=== PATIENT | female | born 1945 ===

== ENCOUNTER 2020-07-25 17:40 | Emergency (ER) | payer MEDICARE, SELFPAY ==
[2020-07-25 17:53] VITALS: BP 141/64; PULSE 98; RESP 16; TEMP 38.1; O2SAT 97; BMI 24.4
--- NOTE | 2020-07-25 17:58 | ED_ITS ---
HPI - Fever General Chief Complaint: Weakness Stated Complaint: dizzy Source: patient Mode of arrival: ambulatory Limitations: no limitations History of Present Illness HPI Narrative: 75-year-old female with past medical history of diabetes type 2, hypertension, hyperlipidemia, presents with 3 weeks upper respiratory symptoms, fatigue and cough consistent with COVID-19. MD elicited complaint: fever, malaise and weakness Pertinent past history: diabetes Onset (ago): week(s) (3) Relieving factors: nothing Associated symptoms: chills, headache, nasal congestion and cough Treatments prior to arrival fever: cold medicine Related Data Previous Rx's Medication Instructions Recorded atorvastatin 80 mg tablet 80 mg PO DAILY 90 Days #90 tab 05/13/20 ezetimibe 10 mg tablet 10 mg PO DAILY 90 Days #90 tab 05/13/20 hydrochlorothiazide 12.5 mg tablet 12.5 mg PO DAILY 90 Days #90 tab 05/13/20 metformin 1,000 mg tablet 1,000 mg PO BID 90 Days #180 tab 05/13/20 multivitamin 1 tab PO DAILY 30 Days #30 tab 05/13/20 pentosan polysulfate sodium 100 mg 100 mg PO TID 30 Days #90 cap 05/13/20 capsule risperidone 0.5 mg tablet 0.5 mg PO DAILY 90 Days #90 tab 05/13/20 pioglitazone 45 mg tablet 45 mg PO DAILY 90 Days #90 tab 05/28/20 tolterodine 2 mg tablet 2 mg PO BID #56 tab 05/28/20 Carafate 100 mg/mL oral suspension 10 ml PO BID 30 Days #600 ml NS 06/07/20 azithromycin [Zithromax TRI-KEYLA] See Rx Instructions .ROUTE 07/25/20 .COMPLEX #6 tab benzonatate [Tessalon Perles] 100 mg PO TID PRN #20 cap 07/25/20 dexamethasone 6 mg PO DAILY 10 Days #10 tab 07/25/20 Allergies Allergy/AdvReac Type Severity Reaction Status Date / Time Iodinated Contrast Media Allergy Unknown ITCHY Unverified 04/16/20 15:28 [IV CONTRAST] lactose [LACTOSE] Allergy Unknown EYES Unverified 04/16/20 15:28 SWELLING oxycodone [Percocet] Allergy Unknown anaphylaxis Verified 05/20/20 15:10 tramadol Allergy Unknown pruritus, Verified 05/20/20 15:10 nausea dulaglutide [Trulicity] AdvReac Unknown vomiting Verified 05/20/20 15:10 oxybutynin AdvReac Unknown dizziness Verified 05/20/20 15:10 contrast dye Allergy Unknown unknown Uncoded 05/20/20 15:10 latex Allergy Unknown Unknown Uncoded 05/20/20 15:10 Review of Systems Review of Systems: Constitutional: positive Fever, positive Chills, positive fatigue, positive Malaise ENT/Mouth: No throat, positive runny nose Eyes: No Discharge Cardiovascular: No Chest Pain, No SOB Respiratory: No Cough, No Sputum, No Wheezing, No Smoke Exposure, No Dyspnea Gastrointestinal: No Nausea, No Vomiting, No Diarrhea Genitourinary: no irregular bleeding, No Dysuria, No Urinary Frequency, No Hematuria, No Urinary Incontinence, No Urgency, No Flank Pain, Musculoskeletal: positive Myalgia Skin: No rash Neuro: No Headache PMFSH Past Medical History Attestation statement: The following information was validated with the patient. Source: old records reviewed Medical History Diabetes mellitus Essential hypertension Pure hypercholesterolemia Surgical History History of bladder surgery History of surgery History of tubal ligation S/P [id number] (total abdominal hysterectomy and bilateral salpingo-oophorectomy) Family History Family History Father Medical history unknown Mother Medical history unknown Family/Other Diabetes Hypertension Social History Social History Alcohol intake: unknown Smoked in Last 30 Days: No Use of substances other than those prescribed or required for medical reasons: No Advance Directives: No Advance Directives Information Provided: No Physical Exam Vital Signs: Vital Signs: Last Vital Signs Temp 99.0 F 07/25/20 21:31 Pulse 68 07/25/20 21:31 Resp 13 07/25/20 21:31 BP 135/77 07/25/20 21:31 Pulse Ox 97 07/25/20 21:31 Body Mass Index 24.4 Appearance: Alert. Oriented X3. Mild distress. Eyes: Pupils equal, round and reactive to light. ENT: Pharynx normal. Neck: Normal inspection. Neck supple. CVS: Normal heart rate and rhythm. Pulses normal. Respiratory: No respiratory distress. Breath sounds normal. Abdomen: Soft and nontender. Skin: Skin warm and dry. Normal skin color. Normal skin turgor. Extremities: No lower extremity edema. Neuro: No motor deficit. No sensory deficit. Course Course Course Narrative: 75-year-old female with past medical history of hypertension, type 2 diabetes, presents with 3 weeks of fatigue, and upper respiratory symptoms. Plan of care is for x-ray, test for COVID-19. While patient is febrile and mildly tachycardic we will hold off on fluids as this is highly suspicious for a viral illness. X-ray shows right lung pneumonia, will treat with ceftriaxone and azithromycin as COVID-19 test is pending. COVID-19 is positive, we will treat with dexamethasone, and give prescriptions for azithromycin and Tessalon Perles. Patient verbalized understanding of and agrees plan of care discharge home. Reevaluation(s) Reevaluation #1: Medications ordered at 7:34 p.m. have not yet been administered. Urinalysis also pending. RN updated. Time: 20:49 MDM - Fever Differential Diagnosis Differential diagnosis: Likely fever of unknown origin, community acquired pneumonia, pyelonephritis, viral infection, sepsis and influenza Medical Records Attestation: I reviewed the patient's medical records. Lab Data Attestation: I reviewed the patient's lab results. Result diagrams: 07/25/20 18:22 07/25/20 18:22 Labs: Lab Results 07/25/20 07/25/20 07/25/20 Range/Units 18:22 18:22 18:22 WBC 3.4 L (4.8-10.8) X10*3/uL RBC 4.14 L (4.20-5.50) X10*6/uL Hgb 12.4 (12.0-16.0) g/dl Hct 37.4 (37-47) % MCV 90.3 (80-98) fL MCH 30.0 (27.0-33.0) pg MCHC 33.2 (31.0-35.0) g/dl RDW 13.2 (11.0-16.0) % Plt Count TNP MPV 11.4 (9.4-12.3) fL Immature Gran % (Auto) 0.0 (0.0-0.4) % Neut % (Auto) 59.0 (45-73) % Lymph % (Auto) 32.6 (20-40) % Kaufman % (Auto) 7.8 (2-11) % Eos % (Auto) 0.3 (0-4) % Baso % (Auto) 0.3 (0-2) % Lymph # (Auto) 1.1 L (1.2-4.9) X10*3/uL Kaufman # (Auto) 0.3 (0.1-1.2) X10*3/uL Eos # (Auto) 0.0 (0.0-0.4) X10*3/uL Baso # (Auto) 0.0 (0.0-0.2) X10*3/uL Abs Immat Gran (auto) 0.00 (0.00-0.03) X10*3/uL Absolute Neuts (auto) 2.0 (2.0-8.3) X10*3/uL Absolute Nucleated RBC 0.000 (0.0-0.012) X10*3/uL Nucleated RBC % (auto) 0.0 (0.0-0.2) /100WBC Smear Tech's Comments VERIFIED PT 13.7 H (10.8-13.0) SEC INR 1.2 H (0.9-1.1) APTT 25.5 (24.1-38.0) SEC Sodium 138 (135-145) mmol/L Potassium 4.2 (3.3-5.1) mmol/l Chloride 102 (96-108) mmol/L Carbon Dioxide 24 (22-29) mmol/L Anion Gap 16 (12-20) BUN 13 (9-16) mg/dL Creatinine 0.68 (0.5-1.4) mg/dL Estim Creat Clear Calc 59.1 Estimated GFR > 60 Random Glucose 164 H (60-115) mg/dL Lactic Acid (0.5-2.0) mmol/L Calcium 8.3 L (8.4-10.2) mg/dL Magnesium (1.6-2.6) mg/dL Total Bilirubin 0.3 (0.0-1.0) mg/dL Direct Bilirubin < 0.2 (0.0-0.5) mg/dL AST 29 (5-31) U/L ALT 8 (0-31) U/L Alkaline Phosphatase 59 (39-117) U/L Troponin I High Sens (<3.5-17.0) ng/L Total Protein 6.4 L (6.5-8.0) g/dL Albumin 3.7 (3.5-5.0) g/dL Lipase 32 (8-78) U/L Coronavirus (PCR) (Negative) Influenza Type A (PCR) (Negative) Influenza Type B (PCR) (Negative) RSV RNA Qual (PCR) (Negative) 07/25/20 07/25/20 07/25/20 Range/Units 18:22 18:22 18:22 WBC (4.8-10.8) X10*3/uL RBC (4.20-5.50) X10*6/uL Hgb (12.0-16.0) g/dl Hct (37-47) % MCV (80-98) fL MCH (27.0-33.0) pg MCHC (31.0-35.0) g/dl RDW (11.0-16.0) % Plt Count MPV (9.4-12.3) fL Immature Gran % (Auto) (0.0-0.4) % Neut % (Auto) (45-73) % Lymph % (Auto) (20-40) % Kaufman % (Auto) (2-11) % Eos % (Auto) (0-4) % Baso % (Auto) (0-2) % Lymph # (Auto) (1.2-4.9) X10*3/uL Kaufman # (Auto) (0.1-1.2) X10*3/uL Eos # (Auto) (0.0-0.4) X10*3/uL Baso # (Auto) (0.0-0.2) X10*3/uL Abs Immat Gran (auto) (0.00-0.03) X10*3/uL Absolute Neuts (auto) (2.0-8.3) X10*3/uL Absolute Nucleated RBC (0.0-0.012) X10*3/uL Nucleated RBC % (auto) (0.0-0.2) /100WBC Smear Tech's Comments PT (10.8-13.0) SEC INR (0.9-1.1) APTT (24.1-38.0) SEC Sodium (135-145) mmol/L Potassium (3.3-5.1) mmol/l Chloride (96-108) mmol/L Carbon Dioxide (22-29) mmol/L Anion Gap (12-20) BUN (9-16) mg/dL Creatinine (0.5-1.4) mg/dL Estim Creat Clear Calc Estimated GFR Random Glucose (60-115) mg/dL Lactic Acid 1.1 (0.5-2.0) mmol/L Calcium (8.4-10.2) mg/dL Magnesium 1.6 (1.6-2.6) mg/dL Total Bilirubin (0.0-1.0) mg/dL Direct Bilirubin (0.0-0.5) mg/dL AST (5-31) U/L ALT (0-31) U/L Alkaline Phosphatase (39-117) U/L Troponin I High Sens < 3.5 (<3.5-17.0) ng/L Total Protein (6.5-8.0) g/dL Albumin (3.5-5.0) g/dL Lipase (8-78) U/L Coronavirus (PCR) (Negative) Influenza Type A (PCR) (Negative) Influenza Type B (PCR) (Negative) RSV RNA Qual (PCR) (Negative) 07/25/20 Range/Units 20:14 WBC (4.8-10.8) X10*3/uL RBC (4.20-5.50) X10*6/uL Hgb (12.0-16.0) g/dl Hct (37-47) % MCV (80-98) fL MCH (27.0-33.0) pg MCHC (31.0-35.0) g/dl RDW (11.0-16.0) % Plt Count MPV (9.4-12.3) fL Immature Gran % (Auto) (0.0-0.4) % Neut % (Auto) (45-73) % Lymph % (Auto) (20-40) % Kaufman % (Auto) (2-11) % Eos % (Auto) (0-4) % Baso % (Auto) (0-2) % Lymph # (Auto) (1.2-4.9) X10*3/uL Kaufman # (Auto) (0.1-1.2) X10*3/uL Eos # (Auto) (0.0-0.4) X10*3/uL Baso # (Auto) (0.0-0.2) X10*3/uL Abs Immat Gran (auto) (0.00-0.03) X10*3/uL Absolute Neuts (auto) (2.0-8.3) X10*3/uL Absolute Nucleated RBC (0.0-0.012) X10*3/uL Nucleated RBC % (auto) (0.0-0.2) /100WBC Smear Tech's Comments PT (10.8-13.0) SEC INR (0.9-1.1) APTT (24.1-38.0) SEC Sodium (135-145) mmol/L Potassium (3.3-5.1) mmol/l Chloride (96-108) mmol/L Carbon Dioxide (22-29) mmol/L Anion Gap (12-20) BUN (9-16) mg/dL Creatinine (0.5-1.4) mg/dL Estim Creat Clear Calc Estimated GFR Random Glucose (60-115) mg/dL Lactic Acid (0.5-2.0) mmol/L Calcium (8.4-10.2) mg/dL Magnesium (1.6-2.6) mg/dL Total Bilirubin (0.0-1.0) mg/dL Direct Bilirubin (0.0-0.5) mg/dL AST (5-31) U/L ALT (0-31) U/L Alkaline Phosphatase (39-117) U/L Troponin I High Sens (<3.5-17.0) ng/L Total Protein (6.5-8.0) g/dL Albumin (3.5-5.0) g/dL Lipase (8-78) U/L Coronavirus (PCR) POSITIVE A (Negative) Influenza Type A (PCR) NEGATIVE (Negative) Influenza Type B (PCR) NEGATIVE (Negative) RSV RNA Qual (PCR) NEGATIVE (Negative) Imaging Data Chest x-ray: Attestation: I personally reviewed and interpreted this imaging study as follows: Radiologist's impression: EXAMINATION: XR CHEST CLINICAL INFORMATION: Fever. Weakness. COMPARISON: Chest x-ray 09/24/2019 TECHNIQUE: Frontal view of the chest was obtained. 6:37 PM FINDINGS: Subtle basilar right sided airspace opacity concerning for pneumonia. Left lung is normally aerated. No pleural effusion. There is no pneumothorax. Heart size is normal. The cardiac and mediastinal contours are normal. XR/XR chest 1V IMPRESSION: Subtle right basilar airspace opacity. Discharge Plan Discharge Clinical Impression: COVID-19, Pneumonia due to COVID-19 virus Patient Disposition: Home, Self-Care Instructions: Viral Pneumonia (ED), COVID-19 (Coronavirus Disease 2019) (ED) Additional Instructions: Se le evaluaron para los s?ntomas de las v?as respiratorias superiores. Mlain dado positivo en COVID-19. Por favor, mantenga el aislamiento social seg?n las pautas estatales y federales. Es choi responsabilidad mantener estas pautas. Has estado enfermo yazmin 3 semanas te daremos antibi?steve azitromicina y prednisona para ayudar a abrir los pulmones. Si los s?ntomas empeoran o tiene dificultad para respirar, por favor regrese al departamento de emergencias inmediatamente. Nu por elegir janna departamento de emergencias para la evaluaci?n. Por favor, belle un seguimiento con el m?dico de atenci?n primaria seg?n sea necesari o. Regrese al servicio de urgencias para cualquier s?ntoma nuevo, preocupante o que empeore. You were evaluated for upper respiratory symptoms. You tested positive for COVID-19. Please maintain social isolation per State and Federal guidelines. It is your responsibility to maintain these guidelines. You been sick for 3 weeks we will give you azithromycin antibiotic and prednisone to help open up the lungs. If symptoms get worse or you have difficulty breathing please return to the emergency department immediately. Thank you for choosing this emergency department for evaluation. Please follow-up with primary care physician as needed. Return to the emergency department for any new, concerning, or worsening symptoms. Prescriptions: New dexamethasone 6 mg tablet 6 mg PO DAILY 10 Days Qty: 10 RF: 0 azithromycin [Zithromax TRI-KEYLA] 500 mg tablet See Rx Instructions .ROUTE .COMPLEX Qty: 6 RF: 0 benzonatate [Tessalon Perles] 100 mg capsule 100 mg PO TID PRN (Reason: cough) Qty: 20 RF: 0 No Action atorvastatin 80 mg tablet 80 mg PO DAILY 90 Days Qty: 90 RF: 3 ezetimibe [Zetia] 10 mg tablet 10 mg PO DAILY 90 Days Qty: 90 RF: 3 hydrochlorothiazide 12.5 mg tablet 12.5 mg PO DAILY 90 Days Qty: 90 RF: 3 metformin 1,000 mg tablet 1,000 mg PO BID 90 Days Qty: 180 RF: 3 multivitamin Tablet 1 tab PO DAILY 30 Days Qty: 30 RF: 11 Elmiron 100 mg capsule 100 mg PO TID 30 Days Qty: 90 RF: 11 risperidone [Risperdal] 0.5 mg tablet 0.5 mg PO DAILY 90 Days Qty: 90 RF: 2 tolterodine 2 mg tablet 2 mg PO BID Qty: 56 RF: 11 pioglitazone 45 mg tablet 45 mg PO DAILY 90 Days Qty: 90 RF: 3 sucralfate [Carafate] 100 mg/mL suspension 10 ml PO BID 30 Days Qty: 600 RF: 4 Print Language: Polish
[2020-07-25] MEDS: Acetaminophen 325 MG TABLET 650 MG PO (18:06)
[2020-07-25 18:33] LABS: Basophils Percent Auto 0.3 % (0-2); Eosinophils Percent Auto 0.3 % (0-4); MANUAL DIFF FLAG SCAN; Monocytes Absolute Auto 0.3 X10*3/uL (0.1-1.2); Monocytes Percent Auto 7.8 % (2-11); PLT CLUMP 1; Red Cell Distribution Width 13.2 % (11.0-16.0); SCAN SMEAR FLAG 1
[2020-07-25 18:35] LABS: Hematocrit 37.4 % (37-47); Hemoglobin 12.4 g/dl (12.0-16.0); Lymphocytes Absolute Auto 1.1 X10*3/uL (1.2-4.9); Lymphocytes Percent Auto 32.6 % (20-40); Mean Corpuscular HGB Conc 33.2 g/dl (31.0-35.0); Mean Corpuscular Volume 90.3 fL (80-98); Mean Platelet Volume 11.4 fL (9.4-12.3); Red Blood Count 4.14 X10*6/uL (4.20-5.50)
[2020-07-25 18:51] LABS: INTERNATIONAL NORM RATIO 1.2 (0.9-1.1); Prothrombin Time 13.7 SEC (10.8-13.0)
[2020-07-25 18:53] LABS: Partial Thromboplastin Time 25.5 SEC (24.1-38.0)
[2020-07-25 18:54] LABS: Lactic Acid 1.1 mmol/L (0.5-2.0)
[2020-07-25 18:55] LABS: Magnesium 1.6 mg/dL (1.6-2.6)
[2020-07-25 19:00] LABS: Troponin-I High Sensitivity < 3.5 ng/L (<3.5-17.0)
[2020-07-25 19:01] LABS: Alanine Aminotransferase 8 U/L (0-31); Albumin Level 3.7 g/dL (3.5-5.0); Alkaline Phosphatase 59 U/L (39-117); Anion Gap 16 (12-20); Aspartate Amino Transferase 29 U/L (5-31); Bilirubin Direct < 0.2 mg/dL (0.0-0.5); Bilirubin Total 0.3 mg/dL (0.0-1.0); Blood Urea Nitrogen 13 mg/dL (9-16); Calcium 8.3 mg/dL (8.4-10.2); Carbon Dioxide 24 mmol/L (22-29); Chloride 102 mmol/L (96-108); Creatinine Clr Calc Pharmacy 59.1; Estimated Glomerular Filt Rate > 60; Glucose Random 164 mg/dL (60-115); Lipase 32 U/L (8-78); Potassium 4.2 mmol/l (3.3-5.1); Sodium 138 mmol/L (135-145); Total Protein 6.4 g/dL (6.5-8.0)
[2020-07-25 19:03] LABS: White Blood Count 3.4 X10*3/uL (4.8-10.8)
[2020-07-25 19:04] LABS: SLIDE REVIEW VERIFIED
[2020-07-25] MEDS: Azithromycin 500 MG TABLET PO (20:55)
[2020-07-25] MEDS: cefTRIAXone sodium 1 GM in 0.9 % Sodium Chloride 50 ML IV (20:57)
[2020-07-25 21:04] LABS: Influenza A PCR NEGATIVE (Negative); Influenza B PCR NEGATIVE (Negative); Resp Syncy Virus RNA Qual PCR NEGATIVE (Negative); SARS COV2 PCR INHOUSE POSITIVE (Negative)
[2020-07-25 21:31] VITALS: BP 135/77; PULSE 68; RESP 13; TEMP 37.2; O2SAT 97
[2020-07-25] MEDS: Albuterol Sulfate 90 MCG 8 GM INHALER 2 PUFF INHALE (22:30)
[2020-07-25] MEDS: dexAMETHasone 6 MG TABLET PO (22:30)
== END 2020-07-25 23:00 | disposition home or self-care (01) ==
PROVIDERS: Nurse Practitioner Family; Emergency Provider Emergency Medicine
DX: U07.1 COVID-19 (principal); E11.9 Type 2 diabetes mellitus without complications; I10 Essential (primary) hypertension; E78.5 Hyperlipidemia, unspecified; Z79.899 Other long term (current) drug therapy; Z79.84 Long term (current) use of oral hypoglycemic drugs
CPT/HCPCS: 0241U; 36415; 71045; 80048; 80076; 83605; 83690; 83735; 84484; 85025; 85610; 85730; 87040; 96365; 99284; J0696; J8540

== ENCOUNTER 2020-07-31 06:22 | Emergency (ER) | payer MEDICARE, SELFPAY ==
[2020-07-31] VITALS (9 sets, daily range): BP systolic 145–167; BP diastolic 70–85; PULSE 64–83; RESP 17–20; TEMP 36.7–37.1; O2SAT 91–97; BMI 26.4
--- NOTE | 2020-07-31 06:54 | CT_ITS ---
EXAMINATION: CT ABDOMEN AND PELVIS WITHOUT CONTRAST CLINICAL INFORMATION: Abdominal pain. COMPARISON: CT of the abdomen and pelvis done on 07/17/2019. TECHNIQUE: Multidetector volumetric imaging was performed from the superior aspect of the liver through the pubic symphysis. Sagittal and coronal reformatted images were obtained on the technologist's workstation. This CT examination was performed using dose optimization techniques as appropriate, variously including the following: *Automated exposure control *Adjustment of mA and/or kV according to patient size (this includes techniques or standardized protocols for targeted exams where dose is matched to indication/reason for exam; i.e. extremities or head) *Use of iterative reconstruction technique DLP: 415.0 mGy-cm FINDINGS: LUNG BASES: Interval development of patchy groundglass airspace disease is noted within the visualized lung bases. Sub-5 mm subpleural calcified lung nodule is also noted within the anterior inferior aspect of the lingula. There is mild cardiomegaly present. Atherosclerotic coronary artery calcifications are seen. No evidence of any pleural or pericardial effusion. LIVER, GALLBLADDER, AND BILIARY TREE: The liver is normal in size, shape, and attenuation. No focal hepatic lesion or biliary ductal dilatation is present. The gallbladder is unremarkable with no evidence of radiopaque gallstones, gallbladder wall thickening, or obvious pericholecystic inflammatory changes. PANCREAS: Unremarkable. SPLEEN: Unremarkable. ADRENAL GLANDS: Unremarkable. KIDNEYS AND URETERS: The kidneys are normal in size, shape, and attenuation. No hydronephrosis, hydroureter, or calculi seen. No perinephric stranding. BLADDER: Unremarkable. GASTROINTESTINAL TRACT: Colonic diverticulosis related changes are noted within the large bowel without any CT features of superimposed acute diverticulitis. The appendix is visualized at right lower quadrant and is unremarkable. The small bowel loops are decompressed. The stomach is decompressed. ABDOMINAL WALL: No significant hernia is appreciated. LYMPH NODES: No pathologically enlarged retroperitoneal, mesenteric, pelvic or groin lymphadenopathy. VASCULAR: Mild atherosclerotic disease is present within the infrarenal aorta without aneurysm formation. 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 PELVIC VISCERA: There is no pelvic mass present. There is no free fluid and/or free air present. OSSEOUS STRUCTURES: No suspicious focal lesion. Marked diffuse osteopenia. Multilevel degenerative spondylosis in the spine. CT/CT abdomen pelvis wo con IMPRESSION: 1. Compared to most recent prior CT of the chest dated 07/17/2019, interval development of patchy groundglass airspace disease is noted within the visualized lung bases bilaterally, of indeterminate etiology. 2. No CT evidence of any acute intra-abdominal and/or intrapelvic pathology is present.
--- NOTE | 2020-07-31 06:54 | ED_ITS ---
HPI - General Adult General Chief complaint: General Medical Stated complaint: ABD PAIN X'S 24HOURS,+COVID Time Seen by Provider: 07/31/20 06:41 Source: patient Mode of arrival: ambulatory Limitations: no limitations History of Present Illness HPI narrative: Patient comes emergency room complaining of abdominal pain. Patient states that she was seen here on July 25, she was diagnosed with COVID-19. Patient states since then, she has been having worsening abdominal pain, nauseous and vomiting, continues having sore throat, generalized malaise, feeling unsteady/dizzy but is able to walk, occasional headaches. Patient denies diarrhea. Patient states the reason she came today because the abdominal pain has not resolved and it is getting worse. Patient denies cough or respiratory difficulty/shortness of breath. MD complaint: Abdominal pain Onset (ago): day(s) Related Data Previous Rx's Medication Instructions Recorded atorvastatin 80 mg tablet 80 mg PO DAILY 90 Days #90 tab 05/13/20 ezetimibe 10 mg tablet 10 mg PO DAILY 90 Days #90 tab 05/13/20 hydrochlorothiazide 12.5 mg tablet 12.5 mg PO DAILY 90 Days #90 tab 05/13/20 metformin 1,000 mg tablet 1,000 mg PO BID 90 Days #180 tab 05/13/20 multivitamin 1 tab PO DAILY 30 Days #30 tab 05/13/20 pentosan polysulfate sodium 100 mg 100 mg PO TID 30 Days #90 cap 05/13/20 capsule risperidone 0.5 mg tablet 0.5 mg PO DAILY 90 Days #90 tab 05/13/20 pioglitazone 45 mg tablet 45 mg PO DAILY 90 Days #90 tab 05/28/20 tolterodine 2 mg tablet 2 mg PO BID #56 tab 05/28/20 Carafate 100 mg/mL oral suspension 10 ml PO BID 30 Days #600 ml NS 06/07/20 azithromycin [Zithromax TRI-KEYLA] See Rx Instructions .ROUTE 07/25/20 .COMPLEX #6 tab benzonatate [Tessalon Perles] 100 mg PO TID PRN #20 cap 07/25/20 dexamethasone 6 mg PO DAILY 10 Days #10 tab 07/25/20 hyoscyamine sulfate 0.25 mg PO QID PRN #10 tab 07/31/20 Allergies Allergy/AdvReac Type Severity Reaction Status Date / Time Iodinated Contrast Media Allergy Unknown ITCHY Verified 07/31/20 06:31 [IV CONTRAST] lactose [LACTOSE] Allergy Unknown EYES Verified 07/31/20 06:31 SWELLING oxycodone [Percocet] Allergy Unknown anaphylaxis Verified 07/31/20 06:31 tramadol Allergy Unknown pruritus, Verified 07/31/20 06:31 nausea dulaglutide [Trulicity] AdvReac Unknown vomiting Verified 07/31/20 06:31 oxybutynin AdvReac Unknown dizziness Verified 07/31/20 06:31 contrast dye Allergy Unknown unknown Uncoded 07/31/20 06:31 latex Allergy Unknown Unknown Uncoded 07/31/20 06:31 Review of Systems Review of Systems: Constitutional : No Weight loss, patient complaining of subjective fever, chills, generalized malaise ENT/Mouth : No Hearing loss, No Ear Pain, No Nasal Congestion, No Sinus Pain, No Hoarseness, complaining of sore throat, No Rhinorrhea, No Swallowing Difficulty Eyes: No Eye Pain, No Swelling, No Redness, No Foreign Body, No Discharge, No Vision Changes Cardiovascular : No Chest Pain, No SOB, No Dyspnea on Exertion, No Orthopnea, No Edema, No Palpitations Respiratory : No Cough, No Sputum, No Wheezing, No Smoke Exposure, No Dyspnea Gastrointestinal : Complaining of vomiting and nausea No Diarrhea, No Constipation, complaining of bilateral lower quadrant pain, No Hematochezia, No Melena Genitourinary : no irregular bleeding, No Dysuria, No Urinary Frequency, No Hematuria, No Urinary Incontinence, No Urgency, No Flank Pain, No Urinary Flow Changes, No Hesitancy Musculoskeletal : No joint pain, No Myalgias, No Joint Swelling Skin : No Skin Lesions, No rash Neuro : No Weakness, No Numbness, No Paresthesias, No Loss of Consciousness, No Dizziness, No Headache Psych : No Anxiety/Panic, No Depression, No SI/HI/AH/VH, No Social Issues, Heme/Lymph: No Bruising, No Bleeding,No Lymphadenopathy Endocrine : No Polyuria, No Polydipsia, No Temperature Intolerance [facility] Past Medical History Medical History Diabetes mellitus Essential hypertension Pure hypercholesterolemia Surgical History History of bladder surgery History of surgery History of tubal ligation S/P ISABEL-BSO (total abdominal hysterectomy and bilateral salpingo-oophorectomy) Family History Family History Father Medical history unknown Mother Medical history unknown Family/Other Diabetes Hypertension Social History Social History Alcohol intake: unknown Smoked in Last 30 Days: No Use of substances other than those prescribed or required for medical reasons: No Advance Directives: No Physical Exam Vital Signs: Vital Signs: Last Vital Signs Temp 98.1 F 07/31/20 08:53 Pulse 74 07/31/20 08:53 Resp 17 07/31/20 08:53 BP 145/82 H 07/31/20 08:53 Pulse Ox 93 07/31/20 09:15 Body Mass Index 26.4 Appearance: Alert. Oriented X3. No acute distress. Eyes: Pupils equal, round and reactive to light. ENT: Pharynx normal. Neck: Normal inspection. Neck supple. No lymph nodes noted. No crepitus CVS: Normal heart rate and rhythm. Pulses normal. Normal S1 and S2 Respiratory: No respiratory distress. Breath sounds normal. No Wheezing. No rales Abdomen: Soft, mild bilateral lower quadrant tenderness on deep palpation. No rigidity. No distention. good BS x4 Skin: Skin warm and dry. Normal skin color. Normal skin turgor. Extremities: No lower extremity edema. No lower extremity edema. No Lacerations. No Rash Neuro: Oriented X 3. No motor deficit. No sensory deficit. Moving all extermities. No slurred speech. Course Course Course Narrative: Patient states she is allergic to contrast, CT to be done without contrast. No acute findings on CT scan, patient complaining of mild abdominal cramping oxygen saturation measured while patient walking, it states above 90%, patient not feeling short of breath. I discussed with the patient that unfortunately with COVID-19, she will have generalized malaise for several weeks Medical Decision Making Lab Data Result diagrams: 07/31/20 07:10 07/31/20 07:10 Labs: Lab Results 07/31/20 07/31/20 07/31/20 Range/Units 07:10 07:10 08:46 WBC 6.7 (4.8-10.8) X10*3/uL RBC 4.14 L (4.20-5.50) X10*6/uL Hgb 12.2 (12.0-16.0) g/dl Hct 36.4 L (37-47) % MCV 87.9 (80-98) fL MCH 29.5 (27.0-33.0) pg MCHC 33.5 (31.0-35.0) g/dl RDW 12.8 (11.0-16.0) % Plt Count 230 (160-400) X10*3/uL MPV 11.5 (9.4-12.3) fL Immature Gran % (Auto) 0.6 H (0.0-0.4) % Neut % (Auto) 69.3 (45-73) % Lymph % (Auto) 21.5 (20-40) % [place] % (Auto) 8.6 (2-11) % Eos % (Auto) 0.0 (0-4) % Baso % (Auto) 0.0 (0-2) % Lymph # (Auto) 1.4 (1.2-4.9) X10*3/uL [place] # (Auto) 0.6 (0.1-1.2) X10*3/uL Eos # (Auto) 0.0 (0.0-0.4) X10*3/uL Baso # (Auto) 0.0 (0.0-0.2) X10*3/uL Abs Immat Gran (auto) 0.04 H (0.00-0.03) X10*3/uL Absolute Neuts (auto) 4.6 (2.0-8.3) X10*3/uL Absolute Nucleated RBC 0.000 (0.0-0.012) X10*3/uL Nucleated RBC % (auto) 0.0 (0.0-0.2) /100WBC Smear Tech's Comments VERIFIED Sodium 142 (135-145) mmol/L Potassium 3.7 (3.3-5.1) mmol/l Chloride 105 (96-108) mmol/L Carbon Dioxide 28 (22-29) mmol/L Anion Gap 13 (12-20) BUN 18 H (9-16) mg/dL Creatinine 0.67 (0.5-1.4) mg/dL Estim Creat Clear Calc 64.3 Estimated GFR > 60 Random Glucose 190 H (60-115) mg/dL Calcium 8.8 D (8.4-10.2) mg/dL Total Bilirubin 0.4 (0.0-1.0) mg/dL Direct Bilirubin 0.2 (0.0-0.5) mg/dL AST 14 D (5-31) U/L ALT 8 (0-31) U/L Alkaline Phosphatase 63 (39-117) U/L Total Protein 6.2 L (6.5-8.0) g/dL Albumin 3.6 (3.5-5.0) g/dL Lipase 21 (8-78) U/L Urine Color YELLOW Urine Appearance HAZY Urine pH 8.0 (5.0-8.0) Ur Specific [place] 1.020 (1.005-1.025) Urine Protein TRACE (NEG-TRACE) MG/DL Urine Glucose (UA) NEG (NEG) MG/DL Urine Ketones NEG (NEG) MG/DL Urine Blood NEG (NEG) Urine Nitrite NEG (NEG) Ur Leukocyte Esterase NEG (NEG) Imaging Data CT scan - abdomen: Attestation: I personally reviewed and interpreted this imaging study as follows: Radiologist's impression: FINDINGS: LUNG BASES: Interval development of patchy groundglass airspace disease is noted within the visualized lung bases. Sub-5 mm subpleural calcified lung nodule is also noted within the anterior inferior aspect of the lingula. There is mild cardiomegaly present. Atherosclerotic coronary artery calcifications are seen. No evidence of any pleural or pericardial effusion. LIVER, GALLBLADDER, AND BILIARY TREE: The liver is normal in size, shape, and attenuation. No focal hepatic lesion or biliary ductal dilatation is present. The gallbladder is unremarkable with no evidence of radiopaque gallstones, gallbladder wall thickening, or obvious pericholecystic inflammatory changes. PANCREAS: Unremarkable. SPLEEN: Unremarkable. ADRENAL GLANDS: Unremarkable. KIDNEYS AND URETERS: The kidneys are normal in size, shape, and attenuation. No hydronephrosis, hydroureter, or calculi seen. No perinephric stranding. BLADDER: Unremarkable. GASTROINTESTINAL TRACT: Colonic diverticulosis related changes are noted within the large bowel without any CT features of superimposed acute diverticulitis. The appendix is visualized at right lower quadrant and is unremarkable. The small bowel loops are decompressed. The stomach is decompressed. ABDOMINAL WALL: No significant hernia is appreciated. LYMPH NODES: No pathologically enlarged retroperitoneal, mesenteric, pelvic or groin lymphadenopathy. VASCULAR: Mild atherosclerotic disease is present within the infrarenal aorta without aneurysm formation. 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 PELVIC VISCERA: There is no pelvic mass present. There is no free fluid and/or free air present. OSSEOUS STRUCTURES: No suspicious focal lesion. Marked diffuse osteopenia. Multilevel degenerative spondylosis in the spine. CT/CT abdomen pelvis wo con IMPRESSION: 1. Compared to most recent prior CT of the chest dated 07/17/2019, interval development of patchy groundglass airspace disease is noted within the visualized lung bases bilaterally, of indeterminate etiology. 2. No CT evidence of any acute intra-abdominal and/or intrapelvic pathology is present. Discharge Plan Discharge Clinical Impression: Abdominal pain Qualifiers: Abdominal location: generalized Qualified Code(s): R10.84 - Generalized abdominal pain Patient Disposition: Home, Self-Care Instructions: Abdominal Pain (ED) Additional Instructions: Please follow-up with your primary care physician tomorrow. If you have any worsening or new symptoms, please return to the emergency room or call 911 Prescriptions: New hyoscyamine sulfate 0.125 mg tablet 0.25 mg PO QID PRN (Reason: dyspepsia) Qty: 10 RF: 0 No Action atorvastatin 80 mg tablet 80 mg PO DAILY 90 Days Qty: 90 RF: 3 ezetimibe [Zetia] 10 mg tablet 10 mg PO DAILY 90 Days Qty: 90 RF: 3 hydrochlorothiazide 12.5 mg tablet 12.5 mg PO DAILY 90 Days Qty: 90 RF: 3 metformin 1,000 mg tablet 1,000 mg PO BID 90 Days Qty: 180 RF: 3 multivitamin Tablet 1 tab PO DAILY 30 Days Qty: 30 RF: 11 Elmiron 100 mg capsule 100 mg PO TID 30 Days Qty: 90 RF: 11 risperidone [Risperdal] 0.5 mg tablet 0.5 mg PO DAILY 90 Days Qty: 90 RF: 2 tolterodine 2 mg tablet 2 mg PO BID Qty: 56 RF: 11 pioglitazone 45 mg tablet 45 mg PO DAILY 90 Days Qty: 90 RF: 3 sucralfate [Carafate] 100 mg/mL suspension 10 ml PO BID 30 Days Qty: 600 RF: 4 dexamethasone 6 mg tablet 6 mg PO DAILY 10 Days Qty: 10 RF: 0 azithromycin [Zithromax TRI-KEYLA] 500 mg tablet See Rx Instructions .ROUTE .COMPLEX Qty: 6 RF: 0 benzonatate [Tessalon Perles] 100 mg capsule 100 mg PO TID PRN (Reason: cough) Qty: 20 RF: 0
--- NOTE | 2020-07-31 07:03 | PC.NURSE ---
REPORT GIVEN TO LEILANI SLAUGHTER.
[2020-07-31] MEDS: dexAMETHasone 6 MG TABLET PO (07:12)
[2020-07-31] MEDS: Lidocaine HCl Viscous 2 % 15 ML SOLUTION MUCOUS MEM (07:12)
[2020-07-31] MEDS: 0.9 % Sodium Chloride 1,000 ML 999 ML IVCONT (07:12)
[2020-07-31] MEDS: ondansetron HCL 4 MG/2 ML VIAL IVPUSH (07:13)
[2020-07-31 07:15] LABS: Hematocrit 36.4 % (37-47); Hemoglobin 12.2 g/dl (12.0-16.0); Imm Gran Abs Auto 0.04 X10*3/uL (0.00-0.03); Imm Gran Pct Auto 0.6 % (0.0-0.4); Lymphocytes Absolute Auto 1.4 X10*3/uL (1.2-4.9); Lymphocytes Percent Auto 21.5 % (20-40); MANUAL DIFF FLAG SCAN; Mean Corpuscular HGB Conc 33.5 g/dl (31.0-35.0); Mean Corpuscular Hemoglobin 29.5 pg (27.0-33.0); Mean Corpuscular Volume 87.9 fL (80-98); Mean Platelet Volume 11.5 fL (9.4-12.3); Monocytes Absolute Auto 0.6 X10*3/uL (0.1-1.2); Monocytes Percent Auto 8.6 % (2-11); Neutrophils Absolute Auto 4.6 X10*3/uL (2.0-8.3); Neutrophils Percent Auto 69.3 % (45-73); Platelet Count 230 X10*3/uL (160-400); Red Blood Count 4.14 X10*6/uL (4.20-5.50); Red Cell Distribution Width 12.8 % (11.0-16.0); SCAN SMEAR FLAG 1; White Blood Count 6.7 X10*3/uL (4.8-10.8)
[2020-07-31 07:38] LABS: Alanine Aminotransferase 8 U/L (0-31); Albumin Level 3.6 g/dL (3.5-5.0); Alkaline Phosphatase 63 U/L (39-117); Anion Gap 13 (12-20); Aspartate Amino Transferase 14 U/L (5-31); Bilirubin Direct 0.2 mg/dL (0.0-0.5); Bilirubin Total 0.4 mg/dL (0.0-1.0); Blood Urea Nitrogen 18 mg/dL (9-16); Calcium 8.8 mg/dL (8.4-10.2); Carbon Dioxide 28 mmol/L (22-29); Chloride 105 mmol/L (96-108); Creatinine Clr Calc Pharmacy 64.3; Estimated Glomerular Filt Rate > 60; Glucose Random 190 mg/dL (60-115); Lipase 21 U/L (8-78); Potassium 3.7 mmol/l (3.3-5.1); Sodium 142 mmol/L (135-145); Total Protein 6.2 g/dL (6.5-8.0)
[2020-07-31 07:42] LABS: SLIDE REVIEW VERIFIED
--- NOTE | 2020-07-31 08:44 | PC.NURSE ---
rn ambulated pt to bathroom. upon return pt o2 sat 85% room air, will notify md. pt placed back on 2 l o2.
[2020-07-31 09:00] LABS: Glucose Urine UA NEG (NEG); Leukocyte Esterase Urine NEG (NEG); Nitrite Urine NEG (NEG); Urine Blood NEG (NEG); Urine Ketones NEG (NEG); Urine Protein TRACE MG/DL (NEG-TRACE)
[2020-07-31 09:05] LABS: Appearance Urine HAZY; Color Urine YELLOW
--- NOTE | 2020-07-31 09:51 | PC.NURSE ---
ambulated pt in [place] again, o2 sat did not drop below 91%.
[2020-07-31] MEDS: Dicyclomine HCl 10 MG CAPSULE PO (11:00)
== END 2020-07-31 11:07 | disposition home or self-care (01) ==
PROVIDERS: Emergency Provider Emergency Medicine
DX: R10.84 Generalized abdominal pain (principal); Z86.16 Personal history of COVID-19; E11.9 Type 2 diabetes mellitus without complications; I10 Essential (primary) hypertension; Z79.84 Long term (current) use of oral hypoglycemic drugs; Z79.899 Other long term (current) drug therapy
CPT/HCPCS: 36415; 74176; 80048; 80076; 81003; 83690; 85025; 96361; 96374; 99284; J2405; J8540

== ENCOUNTER → 2020-08-28 11:21 | Outpatient (BNVA) | payer MEDICARE, SELFPAY | PROVIDERS: PCP Internal Medicine; Referring Provider Internal Medicine; Visit Provider Nurse Practitioner | DX: Z13.89 Encounter for screening for other disorder (principal) | CPT/HCPCS: Q3014 ==

== ENCOUNTER 2020-09-03 13:58 | Emergency (ER) | payer MEDICARE, SELFPAY ==
--- NOTE | ~2020-09-03 | XR_ITS ---
EXAMINATION: XR BILATERAL HIPS WITH AP PELVIS CLINICAL INFORMATION: Fall with pain COMPARISON: None TECHNIQUE: AP and frog-leg lateral views of each hip and an AP view of the pelvis. FINDINGS: There is no fracture or dislocation. The femoral heads are well-seated within their acetabula. Mild degenerative changes of the hips with subchondral sclerosis present. The pelvic rim is intact. The sacroiliac joints and pubic symphysis are intact. The visualized bowel gas pattern is unremarkable. XR/XR hips DAMIAN min 3V IMPRESSION: No fracture or malalignment. Mild degenerative changes in the hips.
--- NOTE | ~2020-09-03 | XR_ITS ---
EXAMINATION: XR LUMBOSACRAL SPINE CLINICAL INFORMATION: Low back pain following fall COMPARISON: July 11, 2014 TECHNIQUE: Three views of the lumbosacral spine. FINDINGS: There are 5 nonrib bearing lumbar vertebra. No acute fracture, spondylolisthesis, or spondylolysis is appreciated. There is some mild narrowing of the L4-5 disc space along its left lateral aspect. There is some increased sclerosis seen involving the facet joints at L4-S1 bilaterally consistent with some degree of facet arthropathy. There is mild spurring about the sacroiliac joints without evidence of fusion or widening. There are prominent L5 transverse processes without complete sacralization. XR/XR lumbar spine 2-3V IMPRESSION: Mild degenerative change of the lumbar spine as described. No acute fracture, spondylolisthesis, or spondylolysis appreciated.
[2020-09-03 14:25] VITALS: BP 156/63; PULSE 95; RESP 18; TEMP 37.6; O2SAT 95; BMI 24.7
[2020-09-03] MEDS: Ibuprofen 600 MG TABLET PO (15:13)
--- NOTE | 2020-09-03 15:27 | ED.GENADULT ---
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 Patient declined any other injuries or pain. Related Data Previous Rx's Medication Instructions Recorded atorvastatin 80 mg tablet 80 mg PO DAILY 90 Days #90 tab 05/13/20 ezetimibe 10 mg tablet 10 mg PO DAILY 90 Days #90 tab 05/13/20 hydrochlorothiazide 12.5 mg tablet 12.5 mg PO DAILY 90 Days #90 tab 05/13/20 multivitamin 1 tab PO DAILY 30 Days #30 tab 05/13/20 pentosan polysulfate sodium 100 mg 100 mg PO TID 30 Days #90 cap 05/13/20 capsule pioglitazone 45 mg tablet 45 mg PO DAILY 90 Days #90 tab 05/28/20 tolterodine 2 mg tablet 2 mg PO BID #56 tab 05/28/20 azithromycin [Zithromax TRI-KEYLA] See Rx Instructions .ROUTE 07/25/20 .COMPLEX #6 tab benzonatate [Tessalon Perles] 100 mg PO TID PRN #20 cap 07/25/20 dexamethasone 6 mg PO DAILY 10 Days #10 tab 07/25/20 hyoscyamine sulfate 0.25 mg PO QID PRN #10 tab 07/31/20 Carafate 100 mg/mL oral suspension 10 ml PO BID 30 Days #600 ml NS 08/03/20 fluticasone propionate 44 2 puff PO BID 30 Days #31.8 g 08/09/20 mcg/actuation HFA aerosol inhaler sennosides 8.6 mg capsule 17.2 mg PO BEDTIME 30 Days #60 cap 08/28/20 blood sugar diagnostic #100 ea 08/29/20 pantoprazole 40 mg tablet,delayed 40 mg PO DAILY 90 Days #90 tab 08/29/20 release risperidone 0.5 mg tablet 0.5 mg PO DAILY 90 Days #90 tab 08/29/20 sumatriptan succinate 50 mg tablet 50 mg PO Q2-4H PRN 30 Days #9 tab 08/30/20 ibuprofen 600 mg PO Q8H PRN #14 tab 09/03/20 metformin 1,000 mg tablet 1,000 mg PO BID #180 tab 09/03/20 Allergies Allergy/AdvReac Type Severity Reaction Status Date / Time Iodinated Contrast Media Allergy Unknown ITCHY Verified 07/31/20 06:31 [IV CONTRAST] lactose [LACTOSE] Allergy Unknown EYES Verified 07/31/20 06:31 SWELLING oxycodone [Percocet] Allergy Unknown anaphylaxis Verified 07/31/20 06:31 tramadol Allergy Unknown pruritus, Verified 07/31/20 06:31 nausea dulaglutide [Trulicity] AdvReac Unknown vomiting Verified 07/31/20 06:31 oxybutynin AdvReac Unknown dizziness Verified 07/31/20 06:31 contrast dye Allergy Unknown unknown Uncoded 07/31/20 06:31 latex Allergy Unknown Unknown Uncoded 07/31/20 06:31 Review of Systems Review of Systems: All other systems are reviewed and are negative Constitutional: Reports as per HPI and Reports no additional constitutional complaints Eyes: Reports as per HPI and Reports no additional eye complaints Reports system reviewed and no additional complaints, except as documented Cardiovascular: Reports as per HPI and Reports no additional cardiovascular complaints Respiratory: Reports as per HPI and Reports no additional respiratory complaints Gastrointestinal: Reports as per HPI and Reports no additional gastrointestinal complaints Genitourinary: Reports no additional female genitourinary complaints Musculoskeletal: Reports no additional musculoskeletal complaints Skin/Breast: Reports system reviewed and no additional complaints, except as docu Psychiatric: Reports no additional psychiatric complaints Endocrine: Reports no additional endocrine complaints Hematologic/Lymphatic: Reports no additional hematologic/lymphatic complaints Allergic/Immunologic: Reports no additional allergic/immunologic complaints Reports system reviewed and no additional complaints, except as documented and Reports Abnormal speech present [facility] Past Medical History Medical History Diabetes mellitus Essential hypertension Pure hypercholesterolemia Surgical History History of bladder surgery History of surgery History of tubal ligation S/P ISABEL-BSO (total abdominal hysterectomy and bilateral salpingo-oophorectomy) Family History Family History Father Medical history unknown Mother Medical history unknown Family/Other Diabetes Hypertension Social History Social History Household Members: None Alcohol intake: never Smoking Status: Never smoker Advance Directives: No Advance Directives Information Provided: Yes Current occupational status: disabled Physical Exam Vital Signs: Vital Signs: Last Vital Signs Temp 99.7 F 09/03/20 14:25 Pulse 95 09/03/20 14:25 Resp 18 09/03/20 14:25 BP 156/63 H 09/03/20 14:25 Pulse Ox 95 09/03/20 14:25 Body Mass Index 24.7 Vital signs have been reviewed as normal and appeared to be correct. Hypertensive. Heart rate normal. Respiration rate normal. Temperature normal. Oxygen saturation normal. Appearance: Alert. Oriented X3. No acute distress. Head: Normal external exam. Normocephalic. Atraumatic. No Mejía signs noted. No raccoon eyes noted Eyes: PERRLA. EOMI. Conjunctiva and sclera normal. Eyelids normal. ENT: EAC normal. TM's Normal. Pharynx normal. Uvula midline. Moist mucous membranes. No trismus noted. No drooling noted. No muffled voice noted. Neck: Normal inspection. Neck supple. FROM. No adenopathy. Thyroid Normal. No meningeal signs. No neck mass noted. CVS: Normal heart rate and rhythm. Heart sound normal. No murmurs noted. Pulses normal throughout. Respiratory: No respiratory distress. Painless inspiration. Breath sounds normal. No wheezes/rales/rhonchi noted. Chest nontender. No accessory muscle usage noted or decreased air movement noted. Abdomen: Soft and nontender. Bowel sounds normal in all 4 quadrants. No distention noted. No organomegaly noted. No visible injury noted. Back: No CVA tenderness. Tenderness over lumbar region, no step-off, no deformity. Skin: Skin warm and dry. Normal skin color. Normal skin turgor. No rashes/lesions/lacerations noted. Extremities: No lower extremity edema. Extremities exhibit normal range of motion. Extremities nontender. Neuro: Oriented X 3. No motor deficit. No sensory deficit. Reflexes normal. Course Course Course Narrative: Assessment and plan. Status post mechanical fall yesterday complaining of low back pain/left hip pain, patient had x-ray of her lumbar spine and left hip with no fractures. Patient felt better after taking ibuprofen in the emergency department. Medical Decision Making Imaging Data Lumbar spine x-ray: Radiologist's impression: Mild degenerative change of the lumbar spine as described. No acute fracture, spondylolisthesis, or spondylolysis appreciated. Pelvis/hips x-ray: My impression: No fracture or malalignment. Mild degenerative changes in the hips. Discharge Plan Discharge Clinical Impression: Contusion of lower back and pelvis, initial encounter Back contusion Qualifiers: Encounter type: initial encounter Laterality: unspecified laterality Qualified Code(s): S20.229A - Contusion of unspecified back wall of thorax, initial encounter Patient Disposition: Home, Self-Care Instructions: Hip Contusion (ED) Prescriptions: New ibuprofen 600 mg tablet 600 mg PO Q8H PRN (Reason: pain) Qty: 14 RF: 0 No Action atorvastatin 80 mg tablet 80 mg PO DAILY 90 Days Qty: 90 RF: 3 ezetimibe [Zetia] 10 mg tablet 10 mg PO DAILY 90 Days Qty: 90 RF: 3 hydrochlorothiazide 12.5 mg tablet 12.5 mg PO DAILY 90 Days Qty: 90 RF: 3 multivitamin Tablet 1 tab PO DAILY 30 Days Qty: 30 RF: 11 Elmiron 100 mg capsule 100 mg PO TID 30 Days Qty: 90 RF: 11 tolterodine 2 mg tablet 2 mg PO BID Qty: 56 RF: 11 pioglitazone 45 mg tablet 45 mg PO DAILY 90 Days Qty: 90 RF: 3 sucralfate [Carafate] 100 mg/mL suspension 10 ml PO BID 30 Days Qty: 600 RF: 4 fluticasone propionate [Flovent HFA] 44 mcg/actuation HFA aerosol inhaler 2 puff PO BID 30 Days Qty: 31.8 RF: 6 risperidone [Risperdal] 0.5 mg tablet 0.5 mg PO DAILY 90 Days Qty: 90 RF: 2 (DME) FreeStyle Test Strip See Rx Instructions .ROUTE .MEDSUPPLY Qty: 100 RF: 11 pantoprazole 40 mg tablet,delayed release (DR/EC) 40 mg PO DAILY 90 Days Qty: 90 RF: 3 sumatriptan succinate 50 mg tablet 50 mg PO Q2-4H PRN (Reason: migraine headache) 30 Days Qty: 9 RF: 6 metformin 1,000 mg tablet 1,000 mg PO BID Qty: 180 RF: 1 dexamethasone 6 mg tablet 6 mg PO DAILY 10 Days Qty: 10 RF: 0 azithromycin [Zithromax TRI-KEYLA] 500 mg tablet See Rx Instructions .ROUTE .COMPLEX Qty: 6 RF: 0 benzonatate [Tessalon Perles] 100 mg capsule 100 mg PO TID PRN (Reason: cough) Qty: 20 RF: 0 hyoscyamine sulfate 0.125 mg tablet 0.25 mg PO QID PRN (Reason: dyspepsia) Qty: 10 RF: 0 senna 8.6 mg capsule 17.2 mg PO BEDTIME 30 Days Qty: 60 RF: 3 Referrals: Tara Cummings MD [Primary Care Provider] - 2 days
== END 2020-09-03 15:47 | disposition home or self-care (01) ==
PROVIDERS: Emergency Provider Emergency Medicine; PCP Internal Medicine
DX: S20.229A Contusion of unspecified back wall of thorax, initial encounter (principal); M25.552 Pain in left hip; M25.551 Pain in right hip; M54.5 Low back pain; R50.9 Fever, unspecified; R05 Cough; W01.0XXA Fall on same level from slipping, tripping and stumbling without subsequent striking against object, initial encounter; Y93.9 Activity, unspecified; Y92.9 Unspecified place or not applicable; Y99.9 Unspecified external cause status; Z79.899 Other long term (current) drug therapy
CPT/HCPCS: 72100; 73522; 99283

== ENCOUNTER → 2020-09-11 11:02 | Outpatient (BNVA) | payer MEDICARE, SELFPAY | PROVIDERS: PCP Internal Medicine; Visit Provider Nurse Practitioner | DX: Z76.89 Persons encountering health services in other specified circumstances (principal) | CPT/HCPCS: Q3014 ==

== ENCOUNTER 2021-05-04 14:35 | Emergency (ER) | payer MEDICARE, SELFPAY ==
--- NOTE | ~2021-05-04 | CT_ITS ---
EXAMINATION: CT ABDOMEN AND PELVIS WITHOUT CONTRAST CLINICAL INFORMATION: Left flank pain COMPARISON: CT abdomen 07/31/2020 TECHNIQUE: Multidetector volumetric imaging was performed from the superior aspect of the liver through the pubic symphysis. Sagittal and coronal reformatted images were obtained on the technologist's workstation. This CT examination was performed using dose optimization techniques as appropriate, variously including the following: *Automated exposure control *Adjustment of mA and/or kV according to patient size (this includes techniques or standardized protocols for targeted exams where dose is matched to indication/reason for exam; i.e. extremities or head) *Use of iterative reconstruction technique DLP: 414 mGy-cm FINDINGS: LUNG BASES: Mild subpleural hazy opacities, probably atelectasis. Stable small calcified nodule right lower lobe. Interval improvement/resolution of the previously noted findings on the prior CT of 07/31/2020. LIVER, GALLBLADDER, AND BILIARY TREE: The liver is normal in size, shape, and attenuation. No focal hepatic lesion or biliary ductal dilatation is present. The gallbladder is unremarkable with no evidence of radiopaque gallstones, gallbladder wall thickening, or obvious pericholecystic inflammatory changes. PANCREAS: Unremarkable. SPLEEN: Unremarkable. ADRENAL GLANDS: Unremarkable. KIDNEYS AND URETERS: The kidneys are normal in size, shape, and attenuation. No hydronephrosis, hydroureter, or calculi seen. No perinephric stranding. BLADDER: Small foci of air in the bladder, clinically correlate for possible recent catheterization. GASTROINTESTINAL TRACT: Colonic diverticulosis without evidence of diverticulitis. There is moderate stool in the large colon. No colonic wall thickening or pericolonic inflammatory changes are evident. Stomach is nondistended. No dilated small bowel loops. Appendix appears unremarkable. ABDOMINAL WALL: No significant hernia is appreciated. LYMPH NODES: No enlarged lymph nodes are evident in the abdomen or pelvis. VASCULAR: Normal caliber aorta. 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 PELVIC VISCERA: No pelvic mass. No free fluid. OSSEOUS STRUCTURES: Compression fracture of the superior aspect of the T11 vertebral body, age indeterminate, new from the prior study of 07/31/2020. Multilevel degenerative changes in the spine. CT/CT abdomen pelvis wo con IMPRESSION: 1. Compression fracture of the superior aspect of T11 vertebral body. This of indeterminate age, new from the prior CT of 07/31/2020. 2. There are small foci of air in the urinary bladder. This of uncertain etiology. Correlate for possible recent catheterization. 3. No evidence of renal or ureteral calculi. No hydronephrosis. 4. Bibasilar atelectasis. 5. Additional findings and details as above.
[2021-05-04 14:49] VITALS: BP 131/82; BP 140/84; PULSE 102; PULSE 105; RESP 16; TEMP 37.1; O2SAT 97; O2SAT 98; BMI 22.8
[2021-05-04 16:26] LABS: Appearance Urine CLEAR; Color Urine YELLOW; Glucose Urine UA >=1000 MG/DL (NEG); Leukocyte Esterase Urine NEG (NEG); Nitrite Urine POS (NEG); UACC Culture Trigger YES; Urine Blood NEG (NEG); Urine Ketones NEG (NEG); Urine Protein NEG (NEG-TRACE)
[2021-05-04 16:34] LABS: Mucus Urine 1+ /LPF; Squamous Epithelial Cell Urine 1+ /LPF
[2021-05-04 16:35] LABS: Bacteria Urine 3+ /LPF; RBC Urine 0-2 /HPF (0); WBC Urine 0-2 /HPF (0-4)
[2021-05-04 16:39] LABS: MANUAL DIFF FLAG NO
[2021-05-04 16:40] LABS: Basophils Absolute Auto 0.1 X10*3/uL (0.0-0.2); Basophils Percent Auto 0.7 % (0-2); Eosinophils Absolute Auto 0.1 X10*3/uL (0.0-0.4); Eosinophils Percent Auto 1.6 % (0-4); Hematocrit 37.1 % (37-47); Hemoglobin 12.2 g/dl (12.0-16.0); Imm Gran Abs Auto 0.02 X10*3/uL (0.00-0.03); Imm Gran Pct Auto 0.2 % (0.0-0.4); Lymphocytes Absolute Auto 2.5 X10*3/uL (1.2-4.9); Lymphocytes Percent Auto 30.6 % (20-40); Mean Corpuscular HGB Conc 32.9 g/dl (31.0-35.0); Mean Corpuscular Hemoglobin 29.9 pg (27.0-33.0); Mean Corpuscular Volume 90.9 fL (80-98); Mean Platelet Volume 10.8 fL (9.4-12.3); Monocytes Absolute Auto 0.6 X10*3/uL (0.1-1.2); Monocytes Percent Auto 7.7 % (2-11); Neutrophils Absolute Auto 4.8 X10*3/uL (2.0-8.3); Neutrophils Percent Auto 59.2 % (45-73); Platelet Count 208 X10*3/uL (160-400); Red Blood Count 4.08 X10*6/uL (4.20-5.50); Red Cell Distribution Width 13.5 % (11.0-16.0)
--- NOTE | 2021-05-04 16:40 | ED.BACK ---
HPI - Back Pain/Injury General Chief Complaint: Back Pain/Injury Stated Complaint: LOW BACK PAIN TO LEG,NO INJURY PER EMS Time Seen by Provider: 05/04/21 15:21 Source: patient Mode of arrival: ambulatory Limitations: no limitations History of Present Illness HPI Narrative: Patient presents to ED chronic left-sided back/ flank pain radiating down to left low abdomen and then left leg for 1 month. Patient states history of kidney stones, and admits to history of diabetes hypertension. Patient denies any recent trauma to the back area abdomen. Patient denies any nausea, vomiting, fever, chills. Patient admits to increased urinary frequency. Patient denies any hematuria. Patient states no chest pain or shortness of breath. Patient denies any urinary/bowel incontinence Related Data Previous Rx's Medication Instructions Recorded atorvastatin 80 mg tablet 80 mg PO DAILY 90 Days #90 tab 05/13/20 hydrochlorothiazide 12.5 mg tablet 12.5 mg PO DAILY 90 Days #90 tab 05/13/20 multivitamin 1 tab PO DAILY 30 Days #30 tab 05/13/20 pentosan polysulfate sodium 100 mg 100 mg PO TID 30 Days #90 cap 05/13/20 capsule (Elmiron) tolterodine 2 mg tablet 2 mg PO BID #56 tab 05/28/20 azithromycin 500 mg tablet See Rx Instructions .ROUTE 07/25/20 (Zithromax TRI-KEYLA) .COMPLEX #6 tab benzonatate 100 mg capsule 100 mg PO TID PRN #20 cap 07/25/20 (Tessalon Perles) dexamethasone 6 mg tablet 6 mg PO DAILY 10 Days #10 tab 07/25/20 hyoscyamine sulfate 0.125 mg tablet 0.25 mg PO QID PRN #10 tab 07/31/20 sennosides 8.6 mg capsule (senna) 17.2 mg PO BEDTIME 30 Days #60 cap 08/28/20 blood sugar diagnostic (FreeStyle #100 ea 08/29/20 Test) pantoprazole 40 mg tablet,delayed 40 mg PO DAILY 90 Days #90 tab 08/29/20 release sumatriptan succinate 50 mg tablet 50 mg PO Q2-4H PRN 30 Days #9 tab 08/30/20 ibuprofen 600 mg tablet 600 mg PO Q8H PRN #14 tab 09/03/20 cyclobenzaprine 5 mg tablet 5 mg PO BEDTIME PRN 30 Days #30 tab 09/08/20 Carafate 100 mg/mL oral suspension 10 ml PO BID 30 Days #600 ml NS 09/11/20 (sucralfate) lisinopril 30 mg tablet 30 mg PO DAILY #28 tab 09/17/20 ezetimibe 10 mg tablet (Zetia) 10 mg PO DAILY 90 Days #90 tab 11/04/20 pioglitazone 30 mg tablet 30 mg PO DAILY #90 tab 11/04/20 risperidone 0.5 mg tablet 0.5 mg PO DAILY 90 Days #90 tab 01/07/21 (Risperdal) fluticasone propionate 44 2 puff PO BID 30 Days #31.8 g 02/13/21 mcg/actuation HFA aerosol inhaler (Flovent HFA) metformin 1,000 mg tablet 1,000 mg PO BID 90 Days #180 tab 03/03/21 cefpodoxime 200 mg tablet 200 mg PO Q12H 10 Days #20 tab 05/04/21 ketorolac 10 mg tablet 10 mg PO QID 5 Days #20 tab 05/04/21 Allergies Allergy/AdvReac Type Severity Reaction Status Date / Time Iodinated Contrast Media Allergy Unknown ITCHY Verified 09/11/20 11:03 [IV CONTRAST] lactose [LACTOSE] Allergy Unknown EYES Verified 09/11/20 11:03 SWELLING oxycodone [Percocet] Allergy Unknown anaphylaxis Verified 09/11/20 11:03 tramadol Allergy Unknown pruritus, Verified 09/11/20 11:03 nausea dulaglutide [Trulicity] AdvReac Unknown vomiting Verified 09/11/20 11:03 oxybutynin AdvReac Unknown dizziness Verified 09/11/20 11:03 latex Allergy Unknown Unknown Uncoded 07/31/20 06:31 Review of Systems Review of Systems: Yes all other systems are reviewed and are negative Constitutional: Constitutional: Reports as per HPI and Reports no additional constitutional complaints Eyes: Eyes: Reports as per HPI and Reports no additional eye complaints ENT: Reports system reviewed and no additional complaints, except as documented and Reports as per HPI Cardiovascular: Cardiovascular: Reports as per HPI and Reports no additional cardiovascular complaints Respiratory: Respiratory: Reports as per HPI and Reports no additional respiratory complaints Gastrointestinal: Gastrointestinal: Reports as per HPI and Reports no additional gastrointestinal complaints Genitourinary: Genitourinary: Reports no additional female genitourinary complaints and Reports as per HPI Comments: Increase urinary frequency. Musculoskeletal: Musculoskeletal: Reports no additional musculoskeletal complaints and Reports as per HPI Neurologic: Reports system reviewed and no additional complaints, except as documented and Reports as per HPI Psychiatric: Psychiatric: Reports no additional psychiatric complaints and Reports as per HPI [facility] Past Medical History Medical History (Updated 05/04/21 @ 19:37 by AYDIN Topete) Diabetes mellitus Essential hypertension Pure hypercholesterolemia Surgical History (Updated 09/11/20 @ 11:05 by GETACHEW Sheldon) History of bladder surgery History of esophagogastroduodenoscopy (EGD) History of surgery History of tubal ligation Hx of colonoscopy S/P [id number] (total abdominal hysterectomy and bilateral salpingo-oophorectomy) Family History Family History Father Medical history unknown Mother Medical history unknown Family/Other Diabetes Hypertension Social History Social History (Updated 09/11/20 @ 11:04 by GETACHEW Sheldon) Household Members: None Alcohol intake: never Advance Directives: No Advance Directives Information Provided: No Current occupational status: disabled Physical Exam Vital Signs: Vital Signs: Last Vital Signs Temp 98.7 F 05/04/21 19:23 Pulse 91 05/04/21 19:23 Resp 18 05/04/21 19:23 BP 146/86 H 05/04/21 19:23 Pulse Ox 98 05/04/21 19:23 Body Mass Index 22.8 Const: General: cooperative, healthy appearing, comfortable, no acute distress, well developed, alert, awake and Physically active Orientation/consciousness: patient oriented x3 HENMT: Head: Yes normal to inspection, Yes No palpable skull fracture present, Yes normocephalic, Yes atraumatic and No abrasion Eyes: General: appearance normal, both eyes and all related structures Neck: Neck: Yes normal visual inspection, Yes full ROM, Yes no lymphadenopathy, Yes no meningeal signs, Yes trachea midline, Yes supple and No tender Chest: Chest palpation & inspection: normal inspection of the chest and normal palpation of entire chest wall Resp: Effort & Inspection: normal respiratory effort and able to speak in complete sentences Auscultation: clear to auscultation bilaterally Cardio: Jugular venous distension: no JVD Heart sounds: S1 normal heart sound present and S2 normal heart sound present GI: Inspection: Yes normal to inspection and No abdominal wall ecchymosis Palpation (GI): Tenderness to palpation present (GI) (mild) in the LLQ and suprapubicly, no guarding and not rigid : General: Yes CVA tenderness (left flank) Back/Spine/Pelvis: Back: CVA tenderness (left flank) Skin: General skin exam: no rashes or lesions noted and elasticity normal Neuro: General: patient oriented x3, gait normal, no meningeal signs and CN's II-XI intact bilaterally Cranial nerves: Yes CN's II-XII intact bilaterally Extrem: Other: Lower extremities negative for swelling, pitting edema, calf tenderness. General: Yes normal to inspection and Yes full ROM Psych: Appearance: grossly normal, well kempt and not disheveled Course Course Course Narrative: Will do labs UA check for UTI. Will do CT scan to rule out kidney stone. Reevaluation(s) Reevaluation #1: Patient labs are normal. Kidney function normal. Patient UA shows UTI. Patient states pain relief after receiving Toradol. Awaiting for CT scan results of the abdomen. Time: 16:35 Reevaluation #2: Abdominal CT scan shows old T11 fracture with patient already is aware of. Patient states she fell in September. Patient will be discharged with antibiotics and pain meds. Time: 19:32 MDM - Back Pain/Injury MDM Narrative Medical decision making narrative: UTI chronic back pain exacerbation Lab Data Result diagrams: 05/04/21 16:35 05/04/21 16:35 Labs: Lab Results 05/04/21 05/04/21 05/04/21 Range/Units 16:20 16:35 16:35 WBC 8.0 (4.8-10.8) X10*3/uL RBC 4.08 L (4.20-5.50) X10*6/uL Hgb 12.2 (12.0-16.0) g/dl Hct 37.1 (37-47) % MCV 90.9 (80-98) fL MCH 29.9 (27.0-33.0) pg MCHC 32.9 (31.0-35.0) g/dl RDW 13.5 (11.0-16.0) % Plt Count 208 (160-400) X10*3/uL MPV 10.8 (9.4-12.3) fL Immature Gran % (Auto) 0.2 (0.0-0.4) % Neut % (Auto) 59.2 (45-73) % Lymph % (Auto) 30.6 (20-40) % [place] % (Auto) 7.7 (2-11) % Eos % (Auto) 1.6 (0-4) % Baso % (Auto) 0.7 (0-2) % Lymph # (Auto) 2.5 (1.2-4.9) X10*3/uL [place] # (Auto) 0.6 (0.1-1.2) X10*3/uL Eos # (Auto) 0.1 (0.0-0.4) X10*3/uL Baso # (Auto) 0.1 (0.0-0.2) X10*3/uL Abs Immat Gran (auto) 0.02 (0.00-0.03) X10*3/uL Absolute Neuts (auto) 4.8 (2.0-8.3) X10*3/uL Absolute Nucleated RBC 0.000 (0.0-0.012) X10*3/uL Nucleated RBC % (auto) 0.0 (0.0-0.2) /100WBC Sodium 142 (135-145) mmol/L Potassium 3.8 (3.3-5.1) mmol/L Chloride 105 (96-108) mmol/L Carbon Dioxide 29 (22-29) mmol/L Anion Gap 12 (12-20) BUN 10 (9-16) mg/dL Creatinine 0.66 (0.5-1.4) mg/dL Estim Creat Clear Calc 58.2 Estimated GFR > 60 Random Glucose 174 H (60-115) mg/dL Calcium 9.5 D (8.4-10.2) mg/dL Total Bilirubin 0.4 (0.0-1.0) mg/dL AST 18 (5-31) U/L ALT 10 (0-31) U/L Alkaline Phosphatase 92 D (39-117) U/L Total Protein 6.5 (6.5-8.0) g/dL Albumin 4.1 (3.5-5.0) g/dL Urine Color YELLOW Urine Appearance CLEAR Urine pH 7.0 (5.0-8.0) Ur Specific [place] 1.010 (1.005-1.025) Urine Protein NEG (NEG-TRACE) MG/DL Urine Glucose (UA) >=1000 H (NEG) MG/DL Urine Ketones NEG (NEG) MG/DL Urine Blood NEG (NEG) Urine Nitrite POS H (NEG) Ur Leukocyte Esterase NEG (NEG) Urine RBC 0-2 (0) /HPF Urine WBC 0-2 (0-4) /HPF Ur Squamous Epith Cells 1+ /LPF Urine Bacteria 3+ /LPF Urine Mucus 1+ /LPF Discharge Plan Discharge Clinical Impression: Acute UTI (urinary tract infection), Chronic back pain Patient Disposition: Home, Self-Care Instructions: Urinary Tract Infection in Women (ED), Chronic Back Pain (DC) Additional Instructions: Fine orina result? positiva para lakeisha infecci?n. La tomograf?a computarizada arroj? resultados negativos para cualquier c?lculo renal o cualquier etiolog?a m?dica / quir?rgica emergente. Regrese al servicio de urgencias de inmediato si tiene dolor abdominal intenso, dolor de espalda intenso, incontinencia urinaria / intestinal, fiebre, escalofr?os, hematuria, disuria o cualquier otro s?ntoma preocupante. Jamia un seguimiento con fine proveedor de atenci?n primaria. Prescriptions: New cefpodoxime 200 mg tablet 200 mg PO Q12H 10 Days Qty: 20 RF: 0 ketorolac 10 mg tablet 10 mg PO QID 5 Days Qty: 20 RF: 0 No Action atorvastatin 80 mg tablet 80 mg PO DAILY 90 Days Qty: 90 RF: 3 hydrochlorothiazide 12.5 mg tablet 12.5 mg PO DAILY 90 Days Qty: 90 RF: 3 multivitamin Tablet 1 tab PO DAILY 30 Days Qty: 30 RF: 11 Elmiron 100 mg capsule 100 mg PO TID 30 Days Qty: 90 RF: 11 tolterodine 2 mg tablet 2 mg PO BID Qty: 56 RF: 11 (DME) FreeStyle Test Strip See Rx Instructions .ROUTE .MEDSUPPLY Qty: 100 RF: 11 pantoprazole 40 mg tablet,delayed release (DR/EC) 40 mg PO DAILY 90 Days Qty: 90 RF: 3 sumatriptan succinate 50 mg tablet 50 mg PO Q2-4H PRN (Reason: migraine headache) 30 Days Qty: 9 RF: 6 cyclobenzaprine 5 mg tablet 5 mg PO BEDTIME PRN (Reason: muscle spasm) 30 Days Qty: 30 RF: 0 lisinopril 30 mg tablet 30 mg PO DAILY Qty: 28 RF: 6 ezetimibe [Zetia] 10 mg tablet 10 mg PO DAILY 90 Days Qty: 90 RF: 3 pioglitazone 30 mg tablet 30 mg PO DAILY Qty: 90 RF: 3 risperidone [Risperdal] 0.5 mg tablet 0.5 mg PO DAILY 90 Days Qty: 90 RF: 2 Flovent HFA 44 mcg/actuation HFA aerosol inhaler 2 puff PO BID 30 Days Qty: 31.8 RF: 6 metformin 1,000 mg tablet 1,000 mg PO BID 90 Days Qty: 180 RF: 1 ibuprofen 600 mg tablet 600 mg PO Q8H PRN (Reason: pain) Qty: 14 RF: 0 dexamethasone 6 mg tablet 6 mg PO DAILY 10 Days Qty: 10 RF: 0 azithromycin [Zithromax TRI-KEYLA] 500 mg tablet See Rx Instructions .ROUTE .COMPLEX Qty: 6 RF: 0 benzonatate [Tessalon Perles] 100 mg capsule 100 mg PO TID PRN (Reason: cough) Qty: 20 RF: 0 hyoscyamine sulfate 0.125 mg tablet 0.25 mg PO QID PRN (Reason: dyspepsia) Qty: 10 RF: 0 senna 8.6 mg capsule 17.2 mg PO BEDTIME 30 Days Qty: 60 RF: 3 sucralfate [Carafate] 100 mg/mL suspension 10 ml PO BID 30 Days Qty: 600 RF: 4 Interventions: ED Discharge Assessment Last Done: 05/04/21 19:42 Print Language: Portuguese
[2021-05-04] MEDS: 0.9 % Sodium Chloride 1,000 ML 999 ML IV (16:44)
[2021-05-04] MEDS: Ketorolac Tromethamine 15 MG/ML VIAL 30 MG IVPUSH (16:48)
[2021-05-04 16:50] VITALS: BP 137/83; PULSE 87; RESP 18; O2SAT 99
[2021-05-04 16:55] LABS: Alanine Aminotransferase 10 U/L (0-31); Albumin Level 4.1 g/dL (3.5-5.0); Alkaline Phosphatase 92 U/L (39-117); Anion Gap 12 (12-20); Aspartate Amino Transferase 18 U/L (5-31); Bilirubin Total 0.4 mg/dL (0.0-1.0); Blood Urea Nitrogen 10 mg/dL (9-16); Calcium 9.5 mg/dL (8.4-10.2); Carbon Dioxide 29 mmol/L (22-29); Chloride 105 mmol/L (96-108); Creatinine Clr Calc Pharmacy 58.2; Estimated Glomerular Filt Rate > 60; Glucose Random 174 mg/dL (60-115); Potassium 3.8 mmol/L (3.3-5.1); Sodium 142 mmol/L (135-145); Total Protein 6.5 g/dL (6.5-8.0)
--- NOTE | 2021-05-04 17:14 | PC.NURSE ---
pain decreased 8/10 s/p toradol
[2021-05-04 19:23] VITALS: BP 146/86; PULSE 91; RESP 18; TEMP 37.1; O2SAT 98
--- NOTE | 2021-05-04 19:44 | PC.NURSE ---
Pt alert and oriented x4, clam and cooperative. Pt denies pain at this time. Pt states she is ready for dc. IV removed, vitals stable.
== END 2021-05-04 19:54 | disposition home or self-care (01) ==
PROVIDERS: Physician Assistant; Emergency Provider Emergency Medicine; PCP Family Medicine
DX: N39.0 Urinary tract infection, site not specified (principal); M54.50 Low back pain, unspecified; M79.605 Pain in left leg; Z79.899 Other long term (current) drug therapy
CPT/HCPCS: 36415; 74176; 80053; 81001; 85025; 87086; 87088; 87186; 96361; 96374; 99284; J1885

== ENCOUNTER 2021-06-01 14:12 | Emergency (ER) | payer MEDICARE, SELFPAY ==
--- NOTE | ~2021-06-01 | CT_ITS ---
EXAMINATION: CT ABDOMEN AND PELVIS WITHOUT CONTRAST CLINICAL INFORMATION: Left lower quadrant abdominal pain. COMPARISON: CT scan abdomen pelvis May 04, 2021 TECHNIQUE: Multidetector volumetric imaging was performed from the superior aspect of the liver through the pubic symphysis. Sagittal and coronal reformatted images were obtained on the technologist's workstation. This CT examination was performed using dose optimization techniques as appropriate, variously including the following: *Automated exposure control *Adjustment of mA and/or kV according to patient size (this includes techniques or standardized protocols for targeted exams where dose is matched to indication/reason for exam; i.e. extremities or head) *Use of iterative reconstruction technique DLP: 423 mGy-cm FINDINGS: LUNG BASES: The visualized lung bases are unremarkable. LIVER, GALLBLADDER, AND BILIARY TREE: The liver is normal in size, shape, and attenuation. No focal hepatic lesion or biliary ductal dilatation is present. The gallbladder is unremarkable with no evidence of radiopaque gallstones, gallbladder wall thickening, or obvious pericholecystic inflammatory changes. PANCREAS: Unremarkable. SPLEEN: Unremarkable. ADRENAL GLANDS: Unremarkable. KIDNEYS AND URETERS: The kidneys are normal in size, shape, and attenuation. No hydronephrosis, hydroureter, or calculi seen. No perinephric stranding. BLADDER: Unremarkable. GASTROINTESTINAL TRACT: There are scattered diverticula of the colon. There is no diverticulitis. There is no bowel wall thickening /edema. There is no bowel obstruction. There is a moderate to large volume of stool in the colon. The appendix is normal . The small bowel loops are unremarkable. The stomach is normal. There is no hiatal hernia. ABDOMINAL WALL: No significant hernia is appreciated. LYMPH NODES: Normal. VASCULAR: There are vascular calcifications of aorta and iliac arteries. There is no aneurysm. PELVIC VISCERA: Unremarkable. OSSEOUS STRUCTURES: No acute osseous abnormality. This compression deformity superior endplate of T11 with about 30% loss of height of the vertebrae. This is chronic. There is degenerative lipping at the anterior endplates of thoracic and lumbar vertebrae. Facet joint arthrosis at lower lumbar spine. No spondylolysis or spondylolisthesis. CT/CT abdomen pelvis wo con IMPRESSION: No acute abnormality CT scan abdomen pelvis.
[2021-06-01 14:38] VITALS: BP 170/86; PULSE 100; RESP 18; TEMP 37; O2SAT 96; BMI 23.2
--- NOTE | 2021-06-01 14:45 | PC.NURSE ---
pt c/o n/v, and abdominal pain for x 2 days. pt reports she has not been able to keep anything down including her meds. she states she did not take her meds today because of her nausea. Pt denies diarrhea. no sob/headache/dizziness. pt has history of hypertension and diabetes.
[2021-06-01 14:52] VITALS: BP 158/90; PULSE 97; RESP 17; TEMP 37; O2SAT 97
--- NOTE | 2021-06-01 14:56 | ED_ITS ---
HPI - Abdominal Pain General Chief Complaint: Abdominal Pain Stated Complaint: nausea/vomitingx3 days Time Seen by Provider: 06/01/21 14:39 Source: patient and old records reviewed History of Present Illness HPI narrative: Patient complaining of left lower quadrant abdominal pain for the past 3 days. She states she has had multiple episodes of similar but milder presentations. She has had 2 CT scans in the past which have been negative. She had been diagnosed with urinary tract infection on her last visit which was a month ago, but urinalysis at that time showed 0-2 white cells but positive nitrate. She has not seen a motor setter for this pain. She has never had colonoscopy. She complains also of epigastric discomfort. She has been taking Maalox but states does not help even temporarily. No fevers or chills. She has been able to eat without changes to the pain. No diarrhea or constipation. No blood in the stools No known alleviating or exacerbating or precipitating factors. Secondary complaints of urinary incontinence which she states is chronic. No significant dysuria. No flank pain at this point. Related Data Previous Rx's Medication Instructions Recorded atorvastatin 80 mg tablet 80 mg PO DAILY 90 Days #90 tab 05/13/20 hydrochlorothiazide 12.5 mg tablet 12.5 mg PO DAILY 90 Days #90 tab 05/13/20 multivitamin 1 tab PO DAILY 30 Days #30 tab 05/13/20 pentosan polysulfate sodium 100 mg 100 mg PO TID 30 Days #90 cap 05/13/20 capsule (Elmiron) tolterodine 2 mg tablet 2 mg PO BID #56 tab 05/28/20 azithromycin 500 mg tablet See Rx Instructions .ROUTE 07/25/20 (Zithromax TRI-KEYLA) .COMPLEX #6 tab benzonatate 100 mg capsule 100 mg PO TID PRN #20 cap 07/25/20 (Tessalon Perles) dexamethasone 6 mg tablet 6 mg PO DAILY 10 Days #10 tab 07/25/20 hyoscyamine sulfate 0.125 mg tablet 0.25 mg PO QID PRN #10 tab 07/31/20 sennosides 8.6 mg capsule (senna) 17.2 mg PO BEDTIME 30 Days #60 cap 08/28/20 blood sugar diagnostic (FreeStyle #100 ea 08/29/20 Test) pantoprazole 40 mg tablet,delayed 40 mg PO DAILY 90 Days #90 tab 08/29/20 release sumatriptan succinate 50 mg tablet 50 mg PO Q2-4H PRN 30 Days #9 tab 08/30/20 ibuprofen 600 mg tablet 600 mg PO Q8H PRN #14 tab 09/03/20 cyclobenzaprine 5 mg tablet 5 mg PO BEDTIME PRN 30 Days #30 tab 09/08/20 Carafate 100 mg/mL oral suspension 10 ml PO BID 30 Days #600 ml NS 09/11/20 (sucralfate) lisinopril 30 mg tablet 30 mg PO DAILY #28 tab 09/17/20 ezetimibe 10 mg tablet (Zetia) 10 mg PO DAILY 90 Days #90 tab 11/04/20 pioglitazone 30 mg tablet 30 mg PO DAILY #90 tab 11/04/20 fluticasone propionate 44 2 puff PO BID 30 Days #31.8 g 02/13/21 mcg/actuation HFA aerosol inhaler (Flovent HFA) metformin 1,000 mg tablet 1,000 mg PO BID 90 Days #180 tab 03/03/21 cefpodoxime 200 mg tablet 200 mg PO Q12H 10 Days #20 tab 05/04/21 ketorolac 10 mg tablet 10 mg PO QID 5 Days #20 tab 05/04/21 risperidone 0.5 mg tablet 0.5 mg PO DAILY 90 Days #90 tab 05/30/21 (Risperdal) metoclopramide HCl 10 mg tablet 10 mg PO Q6H PRN #30 tab 06/01/21 (Reglan) sucralfate 100 mg/mL oral 10 ml PO QID #1000 ml 06/01/21 suspension (Carafate) Allergies Allergy/AdvReac Type Severity Reaction Status Date / Time Iodinated Contrast Media Allergy Unknown ITCHY Verified 09/11/20 11:03 [IV CONTRAST] lactose [LACTOSE] Allergy Unknown EYES Verified 09/11/20 11:03 SWELLING oxycodone [Percocet] Allergy Unknown anaphylaxis Verified 09/11/20 11:03 tramadol Allergy Unknown pruritus, Verified 09/11/20 11:03 nausea dulaglutide [Trulicity] AdvReac Unknown vomiting Verified 09/11/20 11:03 oxybutynin AdvReac Unknown dizziness Verified 09/11/20 11:03 latex Allergy Unknown Unknown Uncoded 07/31/20 06:31 Review of Systems Comments: No fevers or chills Comments: No chest pain Comments: No cough or dyspnea Comments: Abdominal pain is described Comments: Urinary incontinence without dysuria as described Comments: No rash Comments: No weakness numbness or paresthesias Physical Exam Vital Signs: Vital Signs: Last Vital Signs Temp 98.4 F 06/01/21 16:36 Pulse 90 06/01/21 16:55 Resp 16 06/01/21 16:55 BP 168/95 H 06/01/21 16:55 Pulse Ox 97 06/01/21 16:55 Body Mass Index 23.2 Const: Other: Awake and alert in no acute distress. Resp: Other: Clear and equal bilaterally without wheezes rales or rhonchi Cardio: Other: Regular rate and rhythm without murmurs rubs or gallops GI: Other: Soft and nondistended. Tenderness greatest in the left lower quadrant with guarding. No rebound. Epigastric tenderness to palpation as well. No guarding or rebound in the epigastrium. No flank tenderness to percussion. Bowel sounds are normal Skin: Other: Warm pink and dry without rash Course Course Course Narrative: Abdominal pain. Intermittent and acutely worse. Left lower quadrant diverticulitis suspected. Urinary tract infection or p yelonephritis possible. Ischemic bowel possible. Gastritis Peptic ulcer disease Intra-abdominal abscess Given the pain is acutely worsened, I think it is reasonable to do another CT scan to look for interval changes. Will also treat with antacid medication and GI cocktail in the meantime. 4:26 p.m.. White count is normal at 7.1. Lactic acid is mildly elevated to 2.3. Renal function is normal. Patient has already been treated with IV fluids. Likely secondary to volume depletion. No obvious evidence of sepsis or infection at this point. Await CT scan results Will await repeat lactic acid. 5:24 p.m.. Patient is feeling much better. CT scan is unremarkable. Further review shows she has seen Gastroenterology in the past and has been diagnosed as having Beauchamp's esophagus as well as gastroparesis. She used to be on Carafate blood apparently insurance stopped paying for it. She states she felt much better when she had the Carafate. I will try to represcribed today in the hopes that she can fill it. I will also add Reglan as a promotility agent. Refer back to gastroenterology as well as Urology as patient has been complaining of chronic urinary incontinence of urinary tract infection today MDM - Abdominal Pain Lab Data Result diagrams: 06/01/21 15:41 06/01/21 15:41 Labs: Lab Results 06/01/21 06/01/21 06/01/21 Range/Units 15:41 15:41 15:41 WBC 7.1 (4.8-10.8) X10*3/uL RBC 4.13 L (4.20-5.50) X10*6/uL Hgb 12.5 (12.0-16.0) g/dl Hct 38.2 (37.0-47.0) % MCV 92.5 (80.0-98.0) fL MCH 30.3 (27.0-33.0) pg MCHC 32.7 (31.0-35.0) g/dl RDW 13.7 (11.0-16.0) % Plt Count 245 (160-400) X10*3/uL MPV 10.4 (9.4-12.3) fL Immature Gran % (Auto) 0.1 (0.0-0.4) % Neut % (Auto) 50.4 (45-73) % Lymph % (Auto) 36.6 (20-40) % [place] % (Auto) 8.5 (2-11) % Eos % (Auto) 3.7 (0-4) % Baso % (Auto) 0.7 (0-2) % Lymph # (Auto) 2.6 (1.2-4.9) X10*3/uL [place] # (Auto) 0.6 (0.1-1.2) X10*3/uL Eos # (Auto) 0.3 (0.0-0.4) X10*3/uL Baso # (Auto) 0.1 (0.0-0.2) X10*3/uL Abs Immat Gran (auto) 0.01 (0.00-0.03) X10*3/uL Absolute Neuts (auto) 3.55 (2.0-8.3) x10*3/uL Absolute Nucleated RBC 0.000 (0.0-0.012) X10*3/uL Nucleated RBC % (auto) 0.0 (0.0-0.2) /100WBC Sodium 143 (135-145) mmol/L Potassium 4.6 D (3.3-5.1) mmol/L Chloride 104 (96-108) mmol/L Carbon Dioxide 34 H (22-29) mmol/L Anion Gap 10 L (12-20) BUN 11 (9-16) mg/dL Creatinine 0.74 (0.5-1.4) mg/dL Estim Creat Clear Calc 48.8 Estimated GFR > 60 Random Glucose 147 H (60-115) mg/dL Lactic Acid 2.3 H* (0.5-2.0) mmol/L Calcium 9.8 (8.4-10.2) mg/dL Total Bilirubin 0.3 (0.0-1.0) mg/dL AST 19 (5-31) U/L ALT 12 (0-31) U/L Alkaline Phosphatase 85 (39-117) U/L Total Protein 6.7 (6.5-8.0) g/dL Albumin 4.3 (3.5-5.0) g/dL Urine Color Urine Appearance Urine pH (5.0-8.0) Ur Specific Fleming (1.005-1.025) Urine Protein (NEG-TRACE) MG/DL Urine Glucose (UA) (NEG) MG/DL Urine Ketones (NEG) MG/DL Urine Blood (NEG) Urine Nitrite (NEG) Ur Leukocyte Esterase (NEG) 06/01/21 Range/Units 15:41 WBC (4.8-10.8) X10*3/uL RBC (4.20-5.50) X10*6/uL Hgb (12.0-16.0) g/dl Hct (37.0-47.0) % MCV (80.0-98.0) fL MCH (27.0-33.0) pg MCHC (31.0-35.0) g/dl RDW (11.0-16.0) % Plt Count (160-400) X10*3/uL MPV (9.4-12.3) fL Immature Gran % (Auto) (0.0-0.4) % Neut % (Auto) (45-73) % Lymph % (Auto) (20-40) % [place] % (Auto) (2-11) % Eos % (Auto) (0-4) % Baso % (Auto) (0-2) % Lymph # (Auto) (1.2-4.9) X10*3/uL [place] # (Auto) (0.1-1.2) X10*3/uL Eos # (Auto) (0.0-0.4) X10*3/uL Baso # (Auto) (0.0-0.2) X10*3/uL Abs Immat Gran (auto) (0.00-0.03) X10*3/uL Absolute Neuts (auto) (2.0-8.3) x10*3/uL Absolute Nucleated RBC (0.0-0.012) X10*3/uL Nucleated RBC % (auto) (0.0-0.2) /100WBC Sodium (135-145) mmol/L Potassium (3.3-5.1) mmol/L Chloride (96-108) mmol/L Carbon Dioxide (22-29) mmol/L Anion Gap (12-20) BUN (9-16) mg/dL Creatinine (0.5-1.4) mg/dL Estim Creat Clear Calc Estimated GFR Random Glucose (60-115) mg/dL Lactic Acid (0.5-2.0) mmol/L Calcium (8.4-10.2) mg/dL Total Bilirubin (0.0-1.0) mg/dL AST (5-31) U/L ALT (0-31) U/L Alkaline Phosphatase (39-117) U/L Total Protein (6.5-8.0) g/dL Albumin (3.5-5.0) g/dL Urine Color YELLOW Urine Appearance CLOUDY Urine pH 8.0 (5.0-8.0) Ur Specific Fleming 1.020 (1.005-1.025) Urine Protein NEG (NEG-TRACE) MG/DL Urine Glucose (UA) 250 H (NEG) MG/DL Urine Ketones NEG (NEG) MG/DL Urine Blood NEG (NEG) Urine Nitrite NEG (NEG) Ur Leukocyte Esterase NEG (NEG) Discharge Plan Discharge Clinical Impression: Gastroparesis, Beauchamp's esophagus, Urinary bladder incontinence Patient Disposition: Home, Self-Care Instructions: Diabetic Gastroparesis (DC), Urinary Incontinence (ED), Beauchamp Esophagus (ED) Prescriptions: New sucralfate [Carafate] 100 mg/mL suspension 10 ml PO QID Qty: 1000 RF: 0 metoclopramide HCl [Reglan] 10 mg tablet 10 mg PO Q6H PRN (Reason: nausea and vomiting) Qty: 30 RF: 0 No Action atorvastatin 80 mg tablet 80 mg PO DAILY 90 Days Qty: 90 RF: 3 hydrochlorothiazide 12.5 mg tablet 12.5 mg PO DAILY 90 Days Qty: 90 RF: 3 multivitamin Tablet 1 tab PO DAILY 30 Days Qty: 30 RF: 11 Elmiron 100 mg capsule 100 mg PO TID 30 Days Qty: 90 RF: 11 tolterodine 2 mg tablet 2 mg PO BID Qty: 56 RF: 11 (DME) FreeStyle Test Strip See Rx Instructions .ROUTE .MEDSUPPLY Qty: 100 RF: 11 pantoprazole 40 mg tablet,delayed release (DR/EC) 40 mg PO DAILY 90 Days Qty: 90 RF: 3 sumatriptan succinate 50 mg tablet 50 mg PO Q2-4H PRN (Reason: migraine headache) 30 Days Qty: 9 RF: 6 cyclobenzaprine 5 mg tablet 5 mg PO BEDTIME PRN (Reason: muscle spasm) 30 Days Qty: 30 RF: 0 lisinopril 30 mg tablet 30 mg PO DAILY Qty: 28 RF: 6 ezetimibe [Zetia] 10 mg tablet 10 mg PO DAILY 90 Days Qty: 90 RF: 3 pioglitazone 30 mg tablet 30 mg PO DAILY Qty: 90 RF: 3 Flovent HFA 44 mcg/actuation HFA aerosol inhaler 2 puff PO BID 30 Days Qty: 31.8 RF: 6 metformin 1,000 mg tablet 1,000 mg PO BID 90 Days Qty: 180 RF: 1 risperidone [Risperdal] 0.5 mg tablet 0.5 mg PO DAILY 90 Days Qty: 90 RF: 2 ibuprofen 600 mg tablet 600 mg PO Q8H PRN (Reason: pain) Qty: 14 RF: 0 dexamethasone 6 mg tablet 6 mg PO DAILY 10 Days Qty: 10 RF: 0 azithromycin [Zithromax TRI-KEYLA] 500 mg tablet See Rx Instructions .ROUTE .COMPLEX Qty: 6 RF: 0 benzonatate [Tessalon Perles] 100 mg capsule 100 mg PO TID PRN (Reason: cough) Qty: 20 RF: 0 hyoscyamine sulfate 0.125 mg tablet 0.25 mg PO QID PRN (Reason: dyspepsia) Qty: 10 RF: 0 cefpodoxime 200 mg tablet 200 mg PO Q12H 10 Days Qty: 20 RF: 0 ketorolac 10 mg tablet 10 mg PO QID 5 Days Qty: 20 RF: 0 senna 8.6 mg capsule 17.2 mg PO BEDTIME 30 Days Qty: 60 RF: 3 sucralfate [Carafate] 100 mg/mL suspension 10 ml PO BID 30 Days Qty: 600 RF: 4 Referrals: Mina Scaels MD [Physician] - 2 days Monahan,October, MARGRETC [Nurse Practitioner] - 2 days [facility] Past Medical History Medical History (Updated 06/01/21 @ 17:29 by Damon Webster MD) Asthma Diabetes mellitus Essential hypertension Pure hypercholesterolemia Surgical History History of bladder surgery History of esophagogastroduodenoscopy (EGD) History of surgery History of tubal ligation Hx of colonoscopy S/P ISABEL-BSO (total abdominal hysterectomy and bilateral salpingo-oophorectomy) Family History Family History Father Medical history unknown Mother Medical history unknown Family/Other Diabetes Hypertension Social History Social History (Updated 09/11/20 @ 11:04 by GETACHEW Sheldon) Household Members: None Alcohol intake: never Advance Directives: No Advance Directives Information Provided: No Current occupational status: disabled
[2021-06-01] MEDS: 0.9 % Sodium Chloride 500 ML IV (15:43)
[2021-06-01 15:50] LABS: MANUAL DIFF FLAG NO
[2021-06-01 15:52] LABS: Basophils Absolute Auto 0.1 X10*3/uL (0.0-0.2); Basophils Percent Auto 0.7 % (0-2); Eosinophils Absolute Auto 0.3 X10*3/uL (0.0-0.4); Eosinophils Percent Auto 3.7 % (0-4); Hematocrit 38.2 % (37.0-47.0); Hemoglobin 12.5 g/dl (12.0-16.0); Imm Gran Abs Auto 0.01 X10*3/uL (0.00-0.03); Imm Gran Pct Auto 0.1 % (0.0-0.4); Lymphocytes Absolute Auto 2.6 X10*3/uL (1.2-4.9); Lymphocytes Percent Auto 36.6 % (20-40); Mean Corpuscular HGB Conc 32.7 g/dl (31.0-35.0); Mean Corpuscular Hemoglobin 30.3 pg (27.0-33.0); Mean Corpuscular Volume 92.5 fL (80.0-98.0); Mean Platelet Volume 10.4 fL (9.4-12.3); Monocytes Absolute Auto 0.6 X10*3/uL (0.1-1.2); Monocytes Percent Auto 8.5 % (2-11); Neutrophils Absolute Auto 3.55 x10*3/uL (2.0-8.3); Neutrophils Percent Auto 50.4 % (45-73); Platelet Count 245 X10*3/uL (160-400); Red Blood Count 4.13 X10*6/uL (4.20-5.50); Red Cell Distribution Width 13.7 % (11.0-16.0); White Blood Count 7.1 X10*3/uL (4.8-10.8)
[2021-06-01 15:53] LABS: Appearance Urine CLOUDY; Color Urine YELLOW; Glucose Urine UA 250 MG/DL (NEG); Leukocyte Esterase Urine NEG (NEG); Nitrite Urine NEG (NEG); Urine Blood NEG (NEG); Urine Ketones NEG (NEG); Urine Protein NEG (NEG-TRACE)
[2021-06-01] MEDS: Lidocaine HCl Viscous 2 % 15 ML SOLUTION PO (15:53)
[2021-06-01] MEDS: Magnesium Hydrox/Alum Hydrox 30 ML ORAL.SUSP PO (15:53)
[2021-06-01] MEDS: Pantoprazole Sodium 40 MG/10 ML VIAL IVPUSH (15:53)
[2021-06-01 16:08] LABS: Alanine Aminotransferase 12 U/L (0-31); Albumin Level 4.3 g/dL (3.5-5.0); Alkaline Phosphatase 85 U/L (39-117); Anion Gap 10 (12-20); Aspartate Amino Transferase 19 U/L (5-31); Bilirubin Total 0.3 mg/dL (0.0-1.0); Blood Urea Nitrogen 11 mg/dL (9-16); Calcium 9.8 mg/dL (8.4-10.2); Carbon Dioxide 34 mmol/L (22-29); Chloride 104 mmol/L (96-108); Creatinine Clr Calc Pharmacy 48.8; Estimated Glomerular Filt Rate > 60; Glucose Random 147 mg/dL (60-115); Potassium 4.6 mmol/L (3.3-5.1); Sodium 143 mmol/L (135-145); Total Protein 6.7 g/dL (6.5-8.0)
[2021-06-01 16:13] LABS: Lactic Acid 2.3 mmol/L (0.5-2.0)
[2021-06-01 16:36] VITALS: BP 186/103; PULSE 91; RESP 18; TEMP 36.9; O2SAT 96
[2021-06-01 16:55] VITALS: BP 168/95; PULSE 90; RESP 16; O2SAT 97
[2021-06-01 17:49] LABS: Reflex Lactate? Lactic Acid Added
== END 2021-06-01 18:06 | disposition home or self-care (01) ==
PROVIDERS: Emergency Provider Emergency Medicine; PCP Family Medicine
DX: K31.84 Gastroparesis (principal); K22.70 Barrett's esophagus without dysplasia; R32 Unspecified urinary incontinence; Z79.899 Other long term (current) drug therapy
CPT/HCPCS: 36415; 74176; 80053; 81003; 83605; 85025; 96361; 96374; 99284

== ENCOUNTER → 2021-07-08 12:44 | Outpatient (BNVA) | payer MEDICARE, SELFPAY | PROVIDERS: PCP Family Medicine; Visit Provider Nurse Practitioner Family | DX: M54.50 Low back pain, unspecified (principal); M51.36 Other intervertebral disc degeneration, lumbar region; Z97.8 Presence of other specified devices | CPT/HCPCS: 99202 ==

== ENCOUNTER 2022-04-30 05:18 | Emergency (ER) | payer OTHER, SELFPAY ==
--- NOTE | ~2022-04-30 | CT_ITS ---
EXAMINATION: CT ABDOMEN AND PELVIS WITHOUT CONTRAST CLINICAL INFORMATION: Abdominal pain COMPARISON: 06/01/2021 TECHNIQUE: Multidetector volumetric imaging was performed from the superior aspect of the liver through the pubic symphysis. Sagittal and coronal reformatted images were obtained on the technologist's workstation. This CT examination was performed using dose optimization techniques as appropriate, variously including the following: *Automated exposure control *Adjustment of mA and/or kV according to patient size (this includes techniques or standardized protocols for targeted exams where dose is matched to indication/reason for exam; i.e. extremities or head) *Use of iterative reconstruction technique DLP: 424 mGy-cm FINDINGS: LUNG BASES: Mild cardiomegaly. Coronary calcifications. LIVER, GALLBLADDER, AND BILIARY TREE: The liver is normal in size, shape, and attenuation. No focal hepatic lesion or biliary ductal dilatation is present. Gallbladder unremarkable. PANCREAS: Unremarkable. SPLEEN: Unremarkable. ADRENAL GLANDS: Unremarkable. KIDNEYS AND URETERS: The kidneys are normal in size, shape, and attenuation. No hydronephrosis or hydroureter. Punctate nonobstructive calculus upper pole right kidney. No perinephric stranding. BLADDER: Unremarkable. GASTROINTESTINAL TRACT: Scattered colonic diverticula. No evidence of diverticulitis. Normal appendix. Stomach and small bowel unremarkable. ABDOMINAL WALL: No significant hernia is appreciated. LYMPH NODES: Normal. VASCULAR: Aorta is atherosclerotic but normal caliber. Prominent splenorenal shunt PELVIC VISCERA: Hysterectomy. No adnexal abnormalities. OSSEOUS STRUCTURES: No acute or suspicious osseous abnormalities. CT/CT abdomen pelvis wo IV con IMPRESSION: * No acute findings within the abdomen or pelvis to explain the patient's symptomatology. * Scattered colonic diverticula without evidence of diverticulitis. * Additional chronic findings as above.
[2022-04-30 05:26] VITALS: BP 163/75; PULSE 84; RESP 15; TEMP 36.9; O2SAT 95; BMI 23.3
[2022-04-30 05:37] LABS: Basophils Absolute Auto 0.1 X10*3/uL (0.0-0.2); Basophils Percent Auto 0.8 % (0-2); Eosinophils Absolute Auto 0.2 X10*3/uL (0.0-0.4); Eosinophils Percent Auto 2.7 % (0-4); Hematocrit 36.8 % (37.0-47.0); Hemoglobin 12.1 g/dl (12.0-16.0); Imm Gran Abs Auto 0.01 X10*3/uL (0.00-0.03); Imm Gran Pct Auto 0.1 % (0.0-0.4); Lymphocytes Absolute Auto 2.5 X10*3/uL (1.2-4.9); MANUAL DIFF FLAG NO; Mean Corpuscular HGB Conc 32.9 g/dl (31.0-35.0); Mean Corpuscular Hemoglobin 29.9 pg (27.0-33.0); Mean Corpuscular Volume 90.9 fL (80.0-98.0); Mean Platelet Volume 11.2 fL (9.4-12.3); Monocytes Absolute Auto 0.5 X10*3/uL (0.1-1.2); Monocytes Percent Auto 6.1 % (2-11); Neutrophils Absolute Auto 4.2 x10*3/uL (2.0-8.3); Neutrophils Percent Auto 56.3 % (45-73); Platelet Count 210 X10*3/uL (160-400); Red Blood Count 4.05 X10*6/uL (4.20-5.50); Red Cell Distribution Width 13.8 % (11.0-16.0); White Blood Count 7.4 X10*3/uL (4.8-10.8)
[2022-04-30 06:08] LABS: Alanine Aminotransferase 15 U/L (0-31); Alkaline Phosphatase 104 U/L (39-117); Anion Gap 14 (12-20); Aspartate Amino Transferase 25 U/L (5-31); Bilirubin Total 0.2 mg/dL (0.0-1.0); Blood Urea Nitrogen 11 mg/dL (9-16); Calcium 9.3 mg/dL (8.4-10.2); Carbon Dioxide 26 mmol/L (22-29); Chloride 105 mmol/L (96-108); Creatinine Clr Calc Pharmacy 65.9; Estimated Glomerular Filt Rate > 60; Glucose Random 207 mg/dL (60-115); Lipase 48 U/L (8-78); Potassium 3.6 mmol/L (3.3-5.1); Sodium 141 mmol/L (135-145); Total Protein 6.4 g/dL (6.5-8.0)
[2022-04-30] MEDS: Magnesium Hydrox/Alum Hydrox 30 ML ORAL.SUSP PO (06:37)
[2022-04-30] MEDS: Lidocaine HCl Viscous 2 % 15 ML SOLUTION 10 ML MUCOUS MEM (06:37)
[2022-04-30 06:38] VITALS: BP 142/77; PULSE 76; RESP 18; O2SAT 97
--- NOTE | 2022-04-30 06:52 | ED_ITS ---
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 Diffuse abdominal pain started 2 days ago pain described as severe 7/10 and cons tant for 2 days, no relieving factor, no aggravating factor, last bowel movement was yesterday was nonbloody watery diarrhea, otherwise patient declined any relation to food, no nausea, or vomiting. Had a loose stool yesterday. Patient declined dysuria or frequent urination. Patient in the past have similar abdominal pain that has been evaluated by GI and in the emergency department with negative workup. Related Data Previous Rx's Medication Instructions Recorded atorvastatin 80 mg tablet 80 mg PO DAILY 90 days #90 tabs 05/13/20 hydrochlorothiazide 12.5 mg tablet 12.5 mg PO DAILY 90 days #90 tabs 05/13/20 multivitamin 1 tab PO DAILY 30 days #30 tabs 05/13/20 pentosan polysulfate sodium 100 mg 100 mg PO TID 30 days #90 caps 05/13/20 capsule (Elmiron) tolterodine 2 mg tablet 2 mg PO BID #56 tabs 05/28/20 azithromycin 500 mg tablet See Rx Instructions PO .COMPLEX #6 07/25/20 (Zithromax TRI-KEYLA) tabs benzonatate 100 mg capsule 100 mg PO TID PRN cough #20 caps 07/25/20 (Tessalon Perles) dexamethasone 6 mg tablet 6 mg PO DAILY 10 days #10 tabs 07/25/20 hyoscyamine sulfate 0.125 mg tablet 0.25 mg PO QID PRN dyspepsia #10 07/31/20 tabs sennosides 8.6 mg capsule (senna) 17.2 mg PO BEDTIME constipation 30 08/28/20 days #60 caps blood sugar diagnostic (FreeStyle #100 ea 08/29/20 Test strips) pantoprazole 40 mg tablet,delayed 40 mg PO DAILY 90 days #90 tabs 08/29/20 release sumatriptan succinate 50 mg tablet 50 mg PO Q2-4H PRN migraine 08/30/20 headache 30 days #9 tabs ibuprofen 600 mg tablet 600 mg PO Q8H PRN pain #14 tabs 09/03/20 cyclobenzaprine 5 mg tablet 5 mg PO BEDTIME PRN muscle spasm 09/08/20 30 days #30 tabs Carafate 100 mg/mL oral suspension 10 ml PO BID 30 days #600 mL 09/11/20 (sucralfate) lisinopril 30 mg tablet 30 mg PO DAILY #28 tabs 09/17/20 ezetimibe 10 mg tablet (Zetia) 10 mg PO DAILY 90 days #90 tabs 11/04/20 pioglitazone 30 mg tablet 30 mg PO DAILY #90 tabs 11/04/20 fluticasone propionate 44 2 puff PO BID 30 days #31.8 grams 02/13/21 mcg/actuation HFA aerosol inhaler (Flovent HFA) metformin 1,000 mg tablet 1,000 mg PO BID 90 days #180 tabs 03/03/21 cefpodoxime 200 mg tablet 200 mg PO Q12H 10 days #20 tabs 05/04/21 ketorolac 10 mg tablet 10 mg PO QID 5 days #20 tabs 05/04/21 metoclopramide HCl 10 mg tablet 10 mg PO Q6H PRN nausea and 06/01/21 (Reglan) vomiting #30 tabs sucralfate 100 mg/mL oral 10 ml PO QID #1,000 mL 06/01/21 suspension (Carafate) acetaminophen 500 mg tablet 500 mg PO Q6H PRN pain 30 days 07/08/21 (Tylenol Extra Strength) #120 tabs risperidone 0.5 mg tablet 0.5 mg PO DAILY 90 days #90 tabs 02/16/22 (Risperdal) acetaminophen 325 mg tablet 325 mg PO Q6H PRN pain #30 tabs 04/30/22 (Tylenol) Allergies Allergy/AdvReac Type Severity Reaction Status Date / Time Iodinated Contrast Media Allergy Unknown ITCHY Verified 09/11/20 11:03 [IV CONTRAST] lactose [LACTOSE] Allergy Unknown EYES Verified 09/11/20 11:03 SWELLING morphine Allergy Unknown swelling Verified 07/08/21 12:54 oxycodone [Percocet] Allergy Unknown anaphylaxis Verified 09/11/20 11:03 tramadol Allergy Unknown pruritus, Verified 09/11/20 11:03 nausea dulaglutide [Trulicity] AdvReac Unknown vomiting Verified 09/11/20 11:03 oxybutynin AdvReac Unknown dizziness Verified 09/11/20 11:03 latex Allergy Unknown Unknown Uncoded 07/31/20 06:31 Review of Systems Review of Systems All other systems are reviewed and are negative Constitutional: Reports as per HPI and Reports no additional constitutional complaints Eyes: Reports as per HPI and Reports no additional eye complaints Reports system reviewed and no additional complaints, except as documented Cardiovascular: Reports as per HPI and Reports no additional cardiovascular complaints Respiratory: Reports as per HPI and Reports no additional respiratory complaints Gastrointestinal: Reports as per HPI and Reports no additional gastrointestinal complaints Genitourinary: Reports no additional female genitourinary complaints Musculoskeletal: Reports no additional musculoskeletal complaints Skin/Breast: Reports system reviewed and no additional complaints, except as docu Psychiatric: Reports no additional psychiatric complaints Endocrine: Reports no additional endocrine complaints Hematologic/Lymphatic: Reports no additional hematologic/lymphatic complaints Allergic/Immunologic: Reports no additional allergic/immunologic complaints Reports system reviewed and no additional complaints, except as documented and Reports Abnormal speech present [facility] Past Medical History Medical History Asthma Diabetes mellitus Essential hypertension Pure hypercholesterolemia Surgical History History of bladder surgery History of esophagogastroduodenoscopy (EGD) History of surgery History of tubal ligation Hx of colonoscopy S/P ISABEL-BSO (total abdominal hysterectomy and bilateral salpingo-oophorectomy) Family History Family History Father Medical history unknown Mother Medical history unknown Family/Other Diabetes Hypertension Social History Social History Household Members: None Alcohol intake: never Advance Directives: No Advance Directives Information Provided: Yes Current occupational status: disabled Physical Exam ED Vital Signs: Vital Signs - 24 hr 04/30/22 05:26 04/30/22 06:38 Temperature 98.4 F Pulse Rate 84 76 Respiratory Rate 15 18 Blood Pressure 163/75 H 142/77 H Pulse Oximetry 95 97 Oxygen Delivery Method Room Air Room Air BMI result Body Mass Index 23.3 Vital signs have been reviewed as appeared to be correct. Blood pressure normal. Heart rate normal. Respiration rate normal. Temperature normal. Oxygen saturation normal. Appearance: Alert. Oriented X3. No acute distress. Head: Normal external exam. Normocephalic. Atraumatic. No Mejía signs noted. No raccoon eyes noted Eyes: PERRLA. EOMI. Conjunctiva and sclera normal. Eyelids normal. ENT: TM's Normal. Pharynx normal. Uvula midline. Moist mucous membranes. No trismus noted. No drooling noted. No muffled voice noted. Neck: Normal inspection. Neck supple. FROM. No adenopathy. Thyroid Normal. No meningeal signs. No neck mass noted. CVS: Normal heart rate and rhythm. Heart sound normal. No murmurs noted. Pulses normal throughout. Respiratory: No respiratory distress. Painless inspiration. Breath sounds normal. No wheezes/rales/rhonchi noted. Chest nontender. No accessory muscle usage noted or decreased air movement noted. Abdomen: Soft mild tenderness to the left lower quadrant and epigastric, no guarding, no rebound tenderness.. Bowel sounds normal in all 4 quadrants. No distention noted. No organomegaly noted. No visible injury noted. Back: No CVA tenderness. Full range of motion noted. Skin: Skin warm and dry. Normal skin color. Normal skin turgor. No rash es/lesions/lacerations noted. Extremities: No lower extremity edema. Extremities exhibit normal range of motion. Extremities nontender. Neuro: Oriented X 3. Cranial nerve exam: II-XII are grossly intact No motor deficit. No sensory deficit. Reflexes normal. Course Course Course Narrative: 76-year-old female came in with acute on chronic abdominal pain, patient previously seen by GI already on PPI, CT abdomen and pelvis labs are not revealing. Patient was given Tylenol in the emergency department, recommended to follow-up with GI for further endoscopy studies. No further emergency med ical intervention is required at this time. MDM - Abdominal Pain Lab Data Attestation: I reviewed the patient's lab results. Result diagrams: 04/30/22 05:32 04/30/22 05:32 Labs: Lab Results 04/30/22 04/30/22 04/30/22 Range/Units 05:32 05:32 07:01 WBC 7.4 (4.8-10.8) X10*3/uL RBC 4.05 L (4.20-5.50) X10*6/uL Hgb 12.1 (12.0-16.0) g/dl Hct 36.8 L (37.0-47.0) % MCV 90.9 (80.0-98.0) fL MCH 29.9 (27.0-33.0) pg MCHC 32.9 (31.0-35.0) g/dl RDW 13.8 (11.0-16.0) % Plt Count 210 (160-400) X10*3/uL MPV 11.2 (9.4-12.3) fL Immature Gran % (Auto) 0.1 (0.0-0.4) % Neut % (Auto) 56.3 (45-73) % Lymph % (Auto) 34.0 (20-40) % Parker % (Auto) 6.1 (2-11) % Eos % (Auto) 2.7 (0-4) % Baso % (Auto) 0.8 (0-2) % Lymph # (Auto) 2.5 (1.2-4.9) X10*3/uL [place] # (Auto) 0.5 (0.1-1.2) X10*3/uL Eos # (Auto) 0.2 (0.0-0.4) X10*3/uL Baso # (Auto) 0.1 (0.0-0.2) X10*3/uL Abs Immat Gran (auto) 0.01 (0.00-0.03) X10*3/uL Absolute Neuts (auto) 4.2 (2.0-8.3) x10*3/uL Absolute Nucleated RBC 0.000 (0.0-0.012) X10*3/uL Nucleated RBC % (auto) 0.0 (0.0-0.2) /100WBC Sodium 141 (135-145) mmol/L Potassium 3.6 D (3.3-5.1) mmol/L Chloride 105 (96-108) mmol/L Carbon Dioxide 26 (22-29) mmol/L Anion Gap 14 (12-20) BUN 11 (9-16) mg/dL Creatinine 0.68 (0.5-1.4) mg/dL Estim Creat Clear Calc 65.9 Estimated GFR > 60 Random Glucose 207 H (60-115) mg/dL Calcium 9.3 (8.4-10.2) mg/dL Total Bilirubin 0.2 (0.0-1.0) mg/dL AST 25 (5-31) U/L ALT 15 (0-31) U/L Alkaline Phosphatase 104 D (39-117) U/L Troponin I High Sens < 3.5 (<3.5-17.0) ng/L Total Protein 6.4 L (6.5-8.0) g/dL Albumin 4.0 (3.5-5.0) g/dL Lipase 48 (8-78) U/L Urine Color Urine Appearance Urine pH (5.0-9.0) Ur Specific [place] (1.005-1.025) Urine Protein (Neg-Trace) mg/dL Urine Glucose (UA) (Negative) mg/dL Urine Ketones (Negative) mg/dL Urine Blood (Negative) Urine Nitrite (Negative) Ur Leukocyte Esterase (Negative) 04/30/22 Range/Units 07:50 WBC (4.8-10.8) X10*3/uL RBC (4.20-5.50) X10*6/uL Hgb (12.0-16.0) g/dl Hct (37.0-47.0) % MCV (80.0-98.0) fL MCH (27.0-33.0) pg MCHC (31.0-35.0) g/dl RDW (11.0-16.0) % Plt Count (160-400) X10*3/uL MPV (9.4-12.3) fL Immature Gran % (Auto) (0.0-0.4) % Neut % (Auto) (45-73) % Lymph % (Auto) (20-40) % Parker % (Auto) (2-11) % Eos % (Auto) (0-4) % Baso % (Auto) (0-2) % Lymph # (Auto) (1.2-4.9) X10*3/uL [place] # (Auto) (0.1-1.2) X10*3/uL Eos # (Auto) (0.0-0.4) X10*3/uL Baso # (Auto) (0.0-0.2) X10*3/uL Abs Immat Gran (auto) (0.00-0.03) X10*3/uL Absolute Neuts (auto) (2.0-8.3) x10*3/uL Absolute Nucleated RBC (0.0-0.012) X10*3/uL Nucleated RBC % (auto) (0.0-0.2) /100WBC Sodium (135-145) mmol/L Potassium (3.3-5.1) mmol/L Chloride (96-108) mmol/L Carbon Dioxide (22-29) mmol/L Anion Gap (12-20) BUN (9-16) mg/dL Creatinine (0.5-1.4) mg/dL Estim Creat Clear Calc Estimated GFR Random Glucose (60-115) mg/dL Calcium (8.4-10.2) mg/dL Total Bilirubin (0.0-1.0) mg/dL AST (5-31) U/L ALT (0-31) U/L Alkaline Phosphatase (39-117) U/L Troponin I High Sens (<3.5-17.0) ng/L Total Protein (6.5-8.0) g/dL Albumin (3.5-5.0) g/dL Lipase (8-78) U/L Urine Color Yellow Urine Appearance Clear Urine pH 6.5 (5.0-9.0) Ur Specific [place] 1.010 (1.005-1.025) Urine Protein Negative (Neg-Trace) mg/dL Urine Glucose (UA) Negative (Negative) mg/dL Urine Ketones Negative (Negative) mg/dL Urine Blood Negative (Negative) Urine Nitrite Negative (Negative) Ur Leukocyte Esterase Negative (Negative) Imaging Data CT abdomen pelvis: Attestation: I personally reviewed and interpreted this imaging study as follows: Radiologist's impression: *? No acute findings within the abdomen or pelvis to explain the patient's symptomatology. *? Scattered colonic diverticula without evidence of diverticulitis. *? Additional chronic findings as above. ECG Data Attestation: I personally reviewed and interpreted this ECG as follows: Interpretation: Normal sinus rhythm at 72 beats per minute, normal intervals, normal axis deviation, no ST-T changes. Discharge Plan Discharge Clinical Impression: Abdominal pain Patient Disposition: Home, Self-Care Instructions: Abdominal Pain (ED) Prescriptions: New acetaminophen [Tylenol] 325 mg tablet 325 mg PO Q6H PRN (Reason: pain) Qty: 30 0RF No Action atorvastatin 80 mg tablet 80 mg PO DAILY 90 Days Qty: 90 3RF hydrochlorothiazide 12.5 mg tablet 12.5 mg PO DAILY 90 Days Qty: 90 3RF multivitamin Tablet 1 tab PO DAILY 30 Days Qty: 30 11RF Elmiron 100 mg capsule 100 mg PO TID 30 Days Qty: 90 11RF tolterodine 2 mg tablet 2 mg PO BID Qty: 56 11RF (DME) FreeStyle Test Strip See Rx Instructions .ROUTE .MEDSUPPLY Qty: 100 11RF Rx Instructions: Use 1 test strip twice a day pantoprazole 40 mg tablet,delayed release (DR/EC) 40 mg PO DAILY 90 Days Qty: 90 3RF sumatriptan succinate 50 mg tablet 50 mg PO Q2-4H PRN (Reason: migraine headache) 30 Days Qty: 9 6RF Rx Instructions: do not exceed 4 doses per 24 hrs cyclobenzaprine 5 mg tablet 5 mg PO BEDTIME PRN (Reason: muscle spasm) 30 Days Qty: 30 0RF lisinopril 30 mg tablet 30 mg PO DAILY Qty: 28 6RF ezetimibe [Zetia] 10 mg tablet 10 mg PO DAILY 90 Days Qty: 90 3RF pioglitazone 30 mg tablet 30 mg PO DAILY Qty: 90 3RF Flovent HFA 44 mcg/actuation HFA aerosol inhaler 2 puff PO BID 30 Days Qty: 31.8 6RF metformin 1,000 mg tablet 1,000 mg PO BID 90 Days Qty: 180 1RF risperidone [Risperdal] 0.5 mg tablet 0.5 mg PO DAILY 90 Days Qty: 90 2RF ibuprofen 600 mg tablet 600 mg PO Q8H PRN (Reason: pain) Qty: 14 0RF dexamethasone 6 mg tablet 6 mg PO DAILY 10 Days Qty: 10 0RF azithromycin [Zithromax TRI-KEYLA] 500 mg tablet See Rx Instructions .ROUTE .COMPLEX Qty: 6 0RF Rx Instructions: take 500 mg today (day 1), then 250 mg for 4 days (days 2-5) benzonatate [Tessalon Perles] 100 mg capsule 100 mg PO TID PRN (Reason: cough) Qty: 20 0RF hyoscyamine sulfate 0.125 mg tablet 0.25 mg PO QID PRN (Reason: dyspepsia) Qty: 10 0RF sucralfate [Carafate] 100 mg/mL suspension 10 ml PO QID Qty: 1000 0RF Rx Instructions: swish in mouth and swallow; use after food/drink metoclopramide HCl [Reglan] 10 mg tablet 10 mg PO Q6H PRN (Reason: nausea and vomiting) Qty: 30 0RF cefpodoxime 200 mg tablet 200 mg PO Q12H 10 Days Qty: 20 0RF Rx Instructions: must administer with a meal/food ketorolac 10 mg tablet 10 mg PO QID 5 Days Qty: 20 0RF senna 8.6 mg capsule 17.2 mg PO BEDTIME 30 Days Qty: 60 3RF sucralfate [Carafate] 100 mg/mL suspension 10 ml PO BID 30 Days Qty: 600 4RF Rx Instructions: 10mL at noon and bedtime on an empty stomach acetaminophen [Tylenol Extra Strength] 500 mg tablet 500 mg PO Q6H PRN (Reason: pain) 30 Days Qty: 120 1RF Referrals: Celia Kelly MD [Physician] - Stand Alone Forms: Work/School Release
--- NOTE | 2022-04-30 06:57 | ECG_ITS ---
Test Reason : GERD Blood Pressure : / mmHG Vent. Rate : 072 BPM Atrial Rate : 072 BPM P-R Int : 148 ms QRS Dur : 086 ms QT Int : 386 ms P-R-T Axes : -03 002 010 degrees QTc Int : 422 ms Normal sinus rhythm Normal ECG When compared with ECG of 24-SEP-2019 14:58, No significant change was found Referred By: Yoselyn Reyes Electronically Signed By:MARTELL FRITZ
[2022-04-30 07:28] LABS: Troponin-I High Sensitivity < 3.5 ng/L (<3.5-17.0)
[2022-04-30 08:04] LABS: Appearance Urine Clear; Color Urine Yellow; Glucose Urine UA Negative (Negative); Leukocyte Esterase Urine Negative (Negative); Nitrite Urine Negative (Negative); PH 6.5 (5.0-9.0); Urine Blood Negative (Negative); Urine Ketones Negative (Negative); Urine Protein Negative (Neg-Trace)
== END 2022-04-30 09:16 | disposition home or self-care (01) ==
PROVIDERS: Emergency Provider Emergency Medicine
DX: R10.9 Unspecified abdominal pain (principal); E11.9 Type 2 diabetes mellitus without complications; I10 Essential (primary) hypertension; E78.00 Pure hypercholesterolemia, unspecified; Z79.02 Long term (current) use of antithrombotics/antiplatelets; Z79.899 Other long term (current) drug therapy; Z79.84 Long term (current) use of oral hypoglycemic drugs
CPT/HCPCS: 36415; 74176; 80053; 81003; 83690; 84484; 85025; 93005; 99284; 99285

== ENCOUNTER → 2022-05-25 10:52 | Outpatient (BNVA) | payer OTHER, SELFPAY | PROVIDERS: Visit Provider Nurse Practitioner | DX: K31.84 Gastroparesis (principal); K30 Functional dyspepsia; K59.00 Constipation, unspecified; K21.9 Gastro-esophageal reflux disease without esophagitis; K22.719 Barrett's esophagus with dysplasia, unspecified | CPT/HCPCS: 99212 ==

== ENCOUNTER 2022-07-11 10:26 | Emergency (ER) | payer OTHER, SELFPAY ==
--- NOTE | ~2022-07-11 | XR_ITS ---
EXAMINATION: XR CHEST CLINICAL INFORMATION: Cough. COMPARISON: None TECHNIQUE: Frontal view of the chest was obtained. FINDINGS: No significant abnormality is noted involving the heart, lungs, mediastinum, bony thorax or soft tissues. XR/XR chest 1V IMPRESSION: Unremarkable chest examination.
[2022-07-11 10:29] VITALS: BP 154/74; PULSE 90; RESP 18; TEMP 37.7; O2SAT 98; BMI 28.3
[2022-07-11 11:17] LABS: Influenza A PCR NEGATIVE (Negative); Influenza B PCR NEGATIVE (Negative); Resp Syncy Virus RNA Qual PCR NEGATIVE (Negative); SARS COV2 PCR INHOUSE POSITIVE (Negative)
--- NOTE | 2022-07-11 11:18 | ED_ITS ---
HPI - General Adult General Chief complaint: Upper Respiratory Symptoms Stated complaint: Cough/Fever/Body aches Time Seen by Provider: 07/11/22 11:16 Source: patient, family (son) and classifier Mode of arrival: ambulatory Limitations: language barrier History of Present Illness HPI narrative: Patient is a 77 year old assigned female at with a history of GERD, DM, and HTN presenting to the emergency department today with a fever, headache, cough, and body aches. Patient states that over the last 2 days, she has been having a fever, cough, headache, and body aches. Patient denies any dizziness, lightheadedness, abdominal pain, nausea, vomiting, chills, blurry vision, double vision, loss of vision, chest pain, difficulty breathing, shortness of breath, back pain, night sweats, pain with urination, increased urinary frequency, increased urinary urgency, blood in her urine or stool, syncope or a near syncopal episode, recent trauma or falls, bowel incontinence, bladder incontinence, bowel retention, bladder retention, or any other complaints at this time. Onset (ago): day(s) (2) Severity: mild Severity scale (1-10): 2 Relieving factors: none Exacerbating factors: none Associated symptoms: cough and fever/chills Treatments prior to arrival: none Related Data Previous Rx's Medication Instructions Recorded atorvastatin 80 mg tablet 80 mg PO DAILY 90 days #90 tabs 05/13/20 hydrochlorothiazide 12.5 mg tablet 12.5 mg PO DAILY 90 days #90 tabs 05/13/20 multivitamin 1 tab PO DAILY 30 days #30 tabs 05/13/20 pentosan polysulfate sodium 100 mg 100 mg PO TID 30 days #90 caps 05/13/20 capsule (Elmiron) tolterodine 2 mg tablet 2 mg PO BID #56 tabs 05/28/20 azithromycin 500 mg tablet See Rx Instructions PO .COMPLEX #6 07/25/20 (Zithromax TRI-KEYLA) tabs benzonatate 100 mg capsule 100 mg PO TID PRN cough #20 caps 07/25/20 (Tessalon Perles) dexamethasone 6 mg tablet 6 mg PO DAILY 10 days #10 tabs 07/25/20 hyoscyamine sulfate 0.125 mg tablet 0.25 mg PO QID PRN dyspepsia #10 07/31/20 tabs blood sugar diagnostic (FreeStyle #100 ea 08/29/20 Test strips) pantoprazole 40 mg tablet,delayed 40 mg PO DAILY 90 days #90 tabs 08/29/20 release sumatriptan succinate 50 mg tablet 50 mg PO Q2-4H PRN migraine 08/30/20 headache 30 days #9 tabs ibuprofen 600 mg tablet 600 mg PO Q8H PRN pain #14 tabs 09/03/20 cyclobenzaprine 5 mg tablet 5 mg PO BEDTIME PRN muscle spasm 09/08/20 30 days #30 tabs Carafate 100 mg/mL oral suspension 10 ml PO BID 30 days #600 mL 09/11/20 (sucralfate) lisinopril 30 mg tablet 30 mg PO DAILY #28 tabs 09/17/20 ezetimibe 10 mg tablet (Zetia) 10 mg PO DAILY 90 days #90 tabs 11/04/20 pioglitazone 30 mg tablet 30 mg PO DAILY #90 tabs 11/04/20 fluticasone propionate 44 2 puff PO BID 30 days #31.8 grams 02/13/21 mcg/actuation HFA aerosol inhaler (Flovent HFA) metformin 1,000 mg tablet 1,000 mg PO BID 90 days #180 tabs 03/03/21 cefpodoxime 200 mg tablet 200 mg PO Q12H 10 days #20 tabs 05/04/21 ketorolac 10 mg tablet 10 mg PO QID 5 days #20 tabs 05/04/21 acetaminophen 500 mg tablet 500 mg PO Q6H PRN pain 30 days 07/08/21 (Tylenol Extra Strength) #120 tabs risperidone 0.5 mg tablet 0.5 mg PO DAILY 90 days #90 tabs 02/16/22 (Risperdal) acetaminophen 325 mg tablet 325 mg PO Q6H PRN pain #30 tabs 04/30/22 (Tylenol) metoclopramide HCl 10 mg tablet 10 mg PO QIDACHS nausea and 05/25/22 (Reglan) vomiting #120 tabs sennosides 8.6 mg capsule (senna) 17.2 mg PO BEDTIME constipation 30 05/25/22 days #60 caps sucralfate 100 mg/mL oral 10 ml PO QID #1,000 mL 05/25/22 suspension (Carafate) ondansetron 4 mg disintegrating 4 mg PO Q8H 3 days #9 tabs 07/11/22 tablet Allergies Allergy/AdvReac Type Severity Reaction Status Date / Time Iodinated Contrast Media Allergy Unknown ITCHY Verified 07/11/22 10:29 [IV CONTRAST] lactose [LACTOSE] Allergy Unknown EYES Verified 07/11/22 10:29 SWELLING morphine Allergy Unknown swelling Verified 07/11/22 10:29 oxycodone [Percocet] Allergy Unknown anaphylaxis Verified 07/11/22 10:29 tramadol Allergy Unknown pruritus, Verified 07/11/22 10:29 nausea dulaglutide [Trulicity] AdvReac Unknown vomiting Verified 07/11/22 10:29 oxybutynin AdvReac Unknown dizziness Verified 07/11/22 10:29 latex Allergy Unknown Unknown Uncoded 07/31/20 06:31 Review of Systems Constitutional: Constitutional: Reports no additional constitutional co mplaints, Reports body ache(s), Denies chills, Reports fever(s), Reports headache(s) and Denies night sweats Eyes: Eyes: Reports no additional eye complaints, Denies blurry vision, Denies change in vision, Denies diplopia, Denies eye discharge, Denies loss of vision and Denies eye pain ENT: Denies dizziness and Reports headache(s) Cardiovascular: Cardiovascular: Reports no additional cardiovascular complaints, Denies chest pain, Denies lightheadedness, Denies Loss of Consciousness and Denies dyspnea Respiratory: Respiratory: Reports no additional respiratory complaints, Reports cough and Denies dyspnea Gastrointestinal: Gastrointestinal: Reports no additional gastrointestinal complaints, Denies abdominal pain, Denies melena, Denies hematochezia, Denies change in bowel habits and Denies change in stool character Genitourinary: Genitourinary: Denies hematuria, Denies urinary frequency, Den ies dysuria, Denies urinary incontinence, Denies urinary hesitancy and Denies urinary urgency Musculoskeletal: Musculoskeletal: Reports no additional musculoskeletal complaints, Denies numbness and Denies tingling Neurologic: Denies dizziness, Reports headache(s), Denies loss of vision, Denies numbness and Denies tingling Psychiatric: Psychiatric: Reports no additional psychiatric complaints Endocrine: Endocrine: Reports no additional endocrine complaints Hematologic/Lymphatic: Hematologic/Lymphatic: Reports no additional hematologic/lymphatic complaints Allergic/Immunologic: Allergic/Immunologic: Reports no additional allergic/immunologic complaints PMFSH Past Medical History Attestation statement: The following information was validated with the patient. Source: old records reviewed, obtained from family (patient's son) and nursing notes reviewed Medical History Asthma Diabetes mellitus Essential hypertension Pure hypercholesterolemia Surgical History History of bladder surgery History of esophagogastroduodenoscopy (EGD) History of surgery History of tubal ligation Hx of colonoscopy S/P [id number] (total abdominal hysterectomy and bilateral salpingo-oophorectomy) Family History Family History Father Medical history unknown Mother Medical history unknown Family/Other Diabetes Hypertension Social History Social History Household Members: None Alcohol intake: never Advance Directives: Yes Advance Directives Information Provided: Yes Advance Directives on File: No Current occupational status: disabled Physical Exam ED Vital Signs: Vital Signs - 24 hr 07/11/22 10:29 Temperature 100 F Pulse Rate 90 Respiratory Rate 18 Blood Pressure 154/74 H Pulse Oximetry 98 Oxygen Delivery Method Room Air BMI result Body Mass Index 28.3 Const General: cooperative, no acute distress, alert and awake Nutritional Appearance: well nourished Orientation/consciousness: patient oriented x3 Limitations: no limitations HENNV Head: Yes normal to inspection and Yes atraumatic Ears: hearing grossly normal bilaterally and external ears normal General nose exam: Normal external nose present, no nasal discharge noted and no epistaxis Face and sinus: Yes normal facial exam, No abrasion and No laceration Mouth: Normal oral and palatal mucosa present, no drooling and no muffled voice Eyes General: appearance normal, both eyes and all related structures Periorbital: periorbital findings normal Eyelids: Yes eyelids normal Conjunctivae: conjunctivae normal Pupils: Equal, round and reactive pupils present EOM: EOMs intact bilaterally Neck Neck: Yes normal visual inspection, Yes full ROM and Yes no lymphadenopathy Chest Chest palpation & inspection: normal inspection of the chest Resp Effort & Inspection: normal respiratory effort and able to speak in complete sentences Auscultation: clear to auscultation bilaterally Cardio Rate: regular rate Rhythm: regular rhythm GI Inspection: Yes normal to inspection Neuro General: patient oriented x3 and moves all extremities Cranial nerves: Yes Equal, round and reactive pupils present Cognition (Neuro): normal cognition Motor exam (neuro): 5/5 motor strength present throughout Sensory Exam: Normal double simultaneous stimulation for sensation Coordination: [id number] test normal Extrem General: Yes normal to inspection, Yes full ROM and Yes capillary refill normal Psych Appearance: grossly normal Mental Status: mental status grossly normal Affect: normal affect Attitude: cooperative Thought process: Normal thought process present Thought content: Normal thought content present Insight: Good insight present (Psych) Medications Administered Discontinued Medications Generic Name Dose Route Start Last Admin Trade Name Daryl PRN Reason Stop Dose Admin Acetaminophen 650 mg 07/11/22 11:30 07/11/22 11:55 Acetaminophen 325 Mg Tablet PO 07/11/22 11:31 650 mg ONCE ONE Administration Medical Decision Making Medical Decision Making [facility] Narrative: Patient is a 77 year old assigned female at with a history of GERD, HTN, and DM presenting to the emergency department today with a cough, fever, headache, and body aches. Patient's physical exam was unremarkable. Patient's COVID-19 swab was positive. Patient's chest x-ray showed no acute process. I explained my physical exam findings as well as all test results to the patient and the patient's son. I answered all questions asked by the patient and the patient's son. I stressed the importance of the patient taking her medication as prescribed. I stressed the importance of the patient following up with her primary care provider. I stressed the importance of the patient returning to the emergency department immediately if her symptoms were to worsen or if she were to develop any dizziness, shortness of breath, difficulty breathing, chest pain, blurry vision, loss of vision, nausea, vomiting, abdominal pain, fever, chills, back pain, or any other complaints. Patient and the patient's son verbalized agreement and understanding with this treatment plan and discharge. Differential Diagnosis The differential diagnosis associated with the presentation includes diagnosis of: influenza, RSV, COVID-19 Lab Data [facility] Lab Attestation statement: I reviewed the patient's lab results. Labs: Lab Results 07/11/22 Range/Units 10:36 Influenza Type A (PCR) NEGATIVE (Negative) Influenza Type B (PCR) NEGATIVE (Negative) RSV RNA Qual (PCR) NEGATIVE (Negative) SARS-CoV-2 RNA (RT-PCR) POSITIVE A (Negative) Radiology Impression Discussion of test interpretation with radiology: I have reviewed the radiologist's reading. Radiologist Impression: EXAMINATION: XR CHEST CLINICAL INFORMATION: Cough. COMPARISON: None TECHNIQUE: Frontal view of the chest was obtained. FINDINGS: No significant abnormality is noted involving the heart, lungs, mediastinum, bony thorax or soft tissues. XR/XR chest 1V IMPRESSION: Unremarkable chest examination. Dictated By: Shelton Steinberg MD Signed By: Electronically signed by Shelton Steinberg MD 07/11/22 7123 Discharge Plan Discharge Clinical Impression: COVID-19 Patient Disposition: Home, Self-Care Instructions: COVID-19 (Coronavirus Disease 2019) (ED) Additional Instructions: Follow up with your primary care provider. Return to the emergency department immediately if your symptoms worsen or if you develop any dizziness, shortness of breath, difficulty breathing, chest pain, blurry vision, loss of vision, nausea, vomiting, abdominal pain, fever, chills, back pain, or any other complaints. Jamia un seguimiento con choi proveedor de atenci?n primaria. Regrese al departamento de emergencias de inmediato si jenae s?ntomas empeoran o si presenta mareos, falta de aire, dificultad para respirar, dolor de pecho, visi?n borrosa, p?rdida de la visi?n, n?useas, v?mitos, dolor abdominal, fiebre, escalofr?os, dolor de espalda o cualquier otras quejas. Prescriptions: New ondansetron 4 mg tablet,disintegrating 4 mg PO Q8H 3 Days Qty: 9 0RF No Action atorvastatin 80 mg tablet 80 mg PO DAILY 90 Days Qty: 90 3RF hydrochlorothiazide 12.5 mg tablet 12.5 mg PO DAILY 90 Days Qty: 90 3RF multivitamin Tablet 1 tab PO DAILY 30 Days Qty: 30 11RF Elmiron 100 mg capsule 100 mg PO TID 30 Days Qty: 90 11RF tolterodine 2 mg tablet 2 mg PO BID Qty: 56 11RF (DME) FreeStyle Test Strip See Rx Instructions .ROUTE .MEDSUPPLY Qty: 100 11RF Rx Instructions: Use 1 test strip twice a day pantoprazole 40 mg tablet,delayed release (DR/EC) 40 mg PO DAILY 90 Days Qty: 90 3RF sumatriptan succinate 50 mg tablet 50 mg PO Q2-4H PRN (Reason: migraine headache) 30 Days Qty: 9 6RF Rx Instructions: do not exceed 4 doses per 24 hrs cyclobenzaprine 5 mg tablet 5 mg PO BEDTIME PRN (Reason: muscle spasm) 30 Days Qty: 30 0RF lisinopril 30 mg tablet 30 mg PO DAILY Qty: 28 6RF ezetimibe [Zetia] 10 mg tablet 10 mg PO DAILY 90 Days Qty: 90 3RF pioglitazone 30 mg tablet 30 mg PO DAILY Qty: 90 3RF Flovent HFA 44 mcg/actuation HFA aerosol inhaler 2 puff PO BID 30 Days Qty: 31.8 6RF metformin 1,000 mg tablet 1,000 mg PO BID 90 Days Qty: 180 1RF risperidone [Risperdal] 0.5 mg tablet 0.5 mg PO DAILY 90 Days Qty: 90 2RF ibuprofen 600 mg tablet 600 mg PO Q8H PRN (Reason: pain) Qty: 14 0RF dexamethasone 6 mg tablet 6 mg PO DAILY 10 Days Qty: 10 0RF azithromycin [Zithromax TRI-KEYLA] 500 mg tablet See Rx Instructions .ROUTE .COMPLEX Qty: 6 0RF Rx Instructions: take 500 mg today (day 1), then 250 mg for 4 days (days 2-5) benzonatate [Tessalon Perles] 100 mg capsule 100 mg PO TID PRN (Reason: cough) Qty: 20 0RF hyoscyamine sulfate 0.125 mg tablet 0.25 mg PO QID PRN (Reason: dyspepsia) Qty: 10 0RF acetaminophen [Tylenol] 325 mg tablet 325 mg PO Q6H PRN (Reason: pain) Qty: 30 0RF cefpodoxime 200 mg tablet 200 mg PO Q12H 10 Days Qty: 20 0RF Rx Instructions: must administer with a meal/food ketorolac 10 mg tablet 10 mg PO QID 5 Days Qty: 20 0RF sucralfate [Carafate] 100 mg/mL suspension 10 ml PO BID 30 Days Qty: 600 4RF Rx Instructions: 10mL at noon and bedtime on an empty stomach metoclopramide HCl [Reglan] 10 mg tablet 10 mg PO QIDACHS Qty: 120 6RF Hold Instructions: Doctor's Order senna 8.6 mg capsule 17.2 mg PO BEDTIME 30 Days Qty: 60 3RF sucralfate [Carafate] 100 mg/mL suspension 10 ml PO QID Qty: 1000 6RF Rx Instructions: swish in mouth and swallow; use after food/drink acetaminophen [Tylenol Extra Strength] 500 mg tablet 500 mg PO Q6H PRN (Reason: pain) 30 Days Qty: 120 1RF Referrals: [facility] [Primary Care Provider] - Interventions: ED Discharge Assessment Last Done: 07/11/22 12:00 Discharge Date/Time: 07/11/22 12:01 Print Language: Azerbaijani
[2022-07-11] MEDS: Acetaminophen 325 MG TABLET 650 MG PO (11:55)
== END 2022-07-11 12:01 | disposition home or self-care (01) ==
PROVIDERS: Emergency Provider Emergency Medicine
DX: U07.1 COVID-19 (principal); R50.9 Fever, unspecified
CPT/HCPCS: 0241U; 71045; 99283; 99284

== ENCOUNTER 2022-07-16 10:16 | Emergency (ER) | payer OTHER, SELFPAY ==
--- NOTE | ~2022-07-16 | XR_ITS ---
EXAMINATION: XR CHEST CLINICAL INFORMATION: Cough and shortness of breath COMPARISON: Chest x-ray July 11, 2022 TECHNIQUE: 2 views of the chest were obtained. FINDINGS: Cardiac silhouette is normal in size. The lungs are well aerated. There is no lobar consolidation. No pleural effusion or pneumothorax. Mild degenerative changes of the spine. XR/XR chest 2V IMPRESSION: No acute pulmonary pathology.
--- NOTE | 2022-07-16 10:35 | ED.SOB ---
HPI - SOB/Dyspnea General Chief Complaint: Upper Respiratory Symptoms Stated Complaint: COVID symptoms (+ on Monday) per EMS Time Seen by Provider: 07/16/22 10:25 Source: family Mode of arrival: EMS Limitations: language barrier History of Present Illness HPI Narrative: Boyfriend gave history and interpreted. patient has diabetes and HTN she is vaccinated. She was diagnosed with COVID 8 days ago. MD elicited complaint: shortness of breath and cough Onset (ago): week(s) Context: recent illness Timing: constant Severity: mild Related Data Previous Rx's Medication Instructions Recorded atorvastatin 80 mg tablet 80 mg PO DAILY 90 days #90 tabs 05/13/20 hydrochlorothiazide 12.5 mg tablet 12.5 mg PO DAILY 90 days #90 tabs 05/13/20 multivitamin 1 tab PO DAILY 30 days #30 tabs 05/13/20 pentosan polysulfate sodium 100 mg 100 mg PO TID 30 days #90 caps 05/13/20 capsule (Elmiron) tolterodine 2 mg tablet 2 mg PO BID #56 tabs 05/28/20 azithromycin 500 mg tablet See Rx Instructions PO .COMPLEX #6 07/25/20 (Zithromax TRI-KEYLA) tabs benzonatate 100 mg capsule 100 mg PO TID PRN cough #20 caps 07/25/20 (Tessalon Perles) dexamethasone 6 mg tablet 6 mg PO DAILY 10 days #10 tabs 07/25/20 hyoscyamine sulfate 0.125 mg tablet 0.25 mg PO QID PRN dyspepsia #10 07/31/20 tabs blood sugar diagnostic (FreeStyle #100 ea 08/29/20 Test strips) pantoprazole 40 mg tablet,delayed 40 mg PO DAILY 90 days #90 tabs 08/29/20 release sumatriptan succinate 50 mg tablet 50 mg PO Q2-4H PRN migraine 08/30/20 headache 30 days #9 tabs ibuprofen 600 mg tablet 600 mg PO Q8H PRN pain #14 tabs 09/03/20 cyclobenzaprine 5 mg tablet 5 mg PO BEDTIME PRN muscle spasm 09/08/20 30 days #30 tabs Carafate 100 mg/mL oral suspension 10 ml PO BID 30 days #600 mL 09/11/20 (sucralfate) lisinopril 30 mg tablet 30 mg PO DAILY #28 tabs 09/17/20 ezetimibe 10 mg tablet (Zetia) 10 mg PO DAILY 90 days #90 tabs 11/04/20 pioglitazone 30 mg tablet 30 mg PO DAILY #90 tabs 11/04/20 fluticasone propionate 44 2 puff PO BID 30 days #31.8 grams 02/13/21 mcg/actuation HFA aerosol inhaler (Flovent HFA) metformin 1,000 mg tablet 1,000 mg PO BID 90 days #180 tabs 03/03/21 cefpodoxime 200 mg tablet 200 mg PO Q12H 10 days #20 tabs 05/04/21 ketorolac 10 mg tablet 10 mg PO QID 5 days #20 tabs 05/04/21 acetaminophen 500 mg tablet 500 mg PO Q6H PRN pain 30 days 07/08/21 (Tylenol Extra Strength) #120 tabs risperidone 0.5 mg tablet 0.5 mg PO DAILY 90 days #90 tabs 02/16/22 (Risperdal) acetaminophen 325 mg tablet 325 mg PO Q6H PRN pain #30 tabs 04/30/22 (Tylenol) metoclopramide HCl 10 mg tablet 10 mg PO QIDACHS nausea and 05/25/22 (Reglan) vomiting #120 tabs sennosides 8.6 mg capsule (senna) 17.2 mg PO BEDTIME constipation 30 05/25/22 days #60 caps sucralfate 100 mg/mL oral 10 ml PO QID #1,000 mL 05/25/22 suspension (Carafate) ondansetron 4 mg disintegrating 4 mg PO Q8H 3 days #9 tabs 07/11/22 tablet Allergies Allergy/AdvReac Type Severity Reaction Status Date / Time Iodinated Contrast Media Allergy Unknown ITCHY Verified 07/11/22 10:29 [IV CONTRAST] lactose [LACTOSE] Allergy Unknown EYES Verified 07/11/22 10:29 SWELLING morphine Allergy Unknown swelling Verified 07/11/22 10:29 oxycodone [Percocet] Allergy Unknown anaphylaxis Verified 07/11/22 10:29 tramadol Allergy Unknown pruritus, Verified 07/11/22 10:29 nausea dulaglutide [Trulicity] AdvReac Unknown vomiting Verified 07/11/22 10:29 oxybutynin AdvReac Unknown dizziness Verified 07/11/22 10:29 latex Allergy Unknown Unknown Uncoded 07/31/20 06:31 Review of Systems Review of Systems: Yes all other systems are reviewed and are negative Constitutional: Constitutional: Reports body ache(s) and Reports headache(s) ENT: Reports headache(s) Respiratory: Respiratory: Reports cough Neurologic: Reports headache(s) and Denies Sensory deficit (Neuro) [facility] Past Medical History Medical History Asthma Diabetes mellitus Essential hypertension Pure hypercholesterolemia Surgical History History of bladder surgery History of esophagogastroduodenoscopy (EGD) History of surgery History of tubal ligation Hx of colonoscopy S/P ISABEL-BSO (total abdominal hysterectomy and bilateral salpingo-oophorectomy) Family History Family History Father Medical history unknown Mother Medical history unknown Family/Other Diabetes Hypertension Social History Social History Household Members: None Alcohol intake: never Smoked in Last 30 Days: No Use of substances other than those prescribed or required for medical reasons: No Advance Directives: No Current occupational status: disabled Physical Exam Vital Signs: Vital Signs: Last Vital Signs Temp 98.2 F 07/16/22 10:47 Pulse 83 07/16/22 10:47 Resp 20 07/16/22 10:47 BP 154/71 H 07/16/22 10:47 Pulse Ox 99 07/16/22 10:47 O2 Del Method 07/16/22 10:47 BMI result Body Mass Index 26.5 Const: General: healthy appearing Nutritional Appearance: average body habitus Orientation/consciousness: oriented to person and patient oriented x3 Limitations: no limitations HEENT: Head: Yes normal to inspection Ears: external ears normal General nose exam: Normal external nose present Mouth: Normal oral and palatal mucosa present and oropharynx normal Throat: Yes posterior oropharynx normal Eyes: General: appearance normal, both eyes and all related structures Neck: Other: supple Neck: Yes normal visual inspection Chest: Chest palpation & inspection: normal inspection of the chest Resp: Auscultation: clear to auscultation bilaterally Cardio: Jugular venous distension: no JVD Rate: regular rate Rhythm: regular rhythm Heart sounds: S1 normal heart sound present and S2 normal heart sound present GI: Inspection: Yes normal to inspection Palpation (GI): Soft to palpation, nontender and No hepatosplenomegaly present Auscultation: normal bowel sounds : General: Yes no CVA tenderness Back/Spine/Pelvis: Back: no CVA tenderness Skin: General skin exam: no rashes or lesions noted Neuro: General: oriented to person and patient oriented x3 Cranial nerves: Yes CN's II-XII intact bilaterally Motor exam (neuro): 5/5 motor strength present throughout Sensory Exam: No Sensory deficit (Neuro) Extrem: General: Yes normal to inspection Psych: Appearance: grossly normal Course Reevaluation(s) Reevaluation #1: no infiltrate on CXR, patient with COVID Time: 11:54 Discharge Plan Discharge Clinical Impression: COVID-19 Patient Disposition: Home, Self-Care Instructions: Covid-19 Viral Syndrome and Novel Coronavirus (ED) Hey/Ath Prescriptions: No Action atorvastatin 80 mg tablet 80 mg PO DAILY 90 Days Qty: 90 3RF hydrochlorothiazide 12.5 mg tablet 12.5 mg PO DAILY 90 Days Qty: 90 3RF multivitamin Tablet 1 tab PO DAILY 30 Days Qty: 30 11RF Elmiron 100 mg capsule 100 mg PO TID 30 Days Qty: 90 11RF tolterodine 2 mg tablet 2 mg PO BID Qty: 56 11RF (DME) FreeStyle Test Strip See Rx Instructions .ROUTE .MEDSUPPLY Qty: 100 11RF Rx Instructions: Use 1 test strip twice a day pantoprazole 40 mg tablet,delayed release (DR/EC) 40 mg PO DAILY 90 Days Qty: 90 3RF sumatriptan succinate 50 mg tablet 50 mg PO Q2-4H PRN (Reason: migraine headache) 30 Days Qty: 9 6RF Rx Instructions: do not exceed 4 doses per 24 hrs cyclobenzaprine 5 mg tablet 5 mg PO BEDTIME PRN (Reason: muscle spasm) 30 Days Qty: 30 0RF lisinopril 30 mg tablet 30 mg PO DAILY Qty: 28 6RF ezetimibe [Zetia] 10 mg tablet 10 mg PO DAILY 90 Days Qty: 90 3RF pioglitazone 30 mg tablet 30 mg PO DAILY Qty: 90 3RF Flovent HFA 44 mcg/actuation HFA aerosol inhaler 2 puff PO BID 30 Days Qty: 31.8 6RF metformin 1,000 mg tablet 1,000 mg PO BID 90 Days Qty: 180 1RF risperidone [Risperdal] 0.5 mg tablet 0.5 mg PO DAILY 90 Days Qty: 90 2RF ibuprofen 600 mg tablet 600 mg PO Q8H PRN (Reason: pain) Qty: 14 0RF dexamethasone 6 mg tablet 6 mg PO DAILY 10 Days Qty: 10 0RF azithromycin [Zithromax TRI-KEYLA] 500 mg tablet See Rx Instructions .ROUTE .COMPLEX Qty: 6 0RF Rx Instructions: take 500 mg today (day 1), then 250 mg for 4 days (days 2-5) benzonatate [Tessalon Perles] 100 mg capsule 100 mg PO TID PRN (Reason: cough) Qty: 20 0RF hyoscyamine sulfate 0.125 mg tablet 0.25 mg PO QID PRN (Reason: dyspepsia) Qty: 10 0RF acetaminophen [Tylenol] 325 mg tablet 325 mg PO Q6H PRN (Reason: pain) Qty: 30 0RF ondansetron 4 mg tablet,disintegrating 4 mg PO Q8H 3 Days Qty: 9 0RF cefpodoxime 200 mg tablet 200 mg PO Q12H 10 Days Qty: 20 0RF Rx Instructions: must administer with a meal/food ketorolac 10 mg tablet 10 mg PO QID 5 Days Qty: 20 0RF sucralfate [Carafate] 100 mg/mL suspension 10 ml PO BID 30 Days Qty: 600 4RF Rx Instructions: 10mL at noon and bedtime on an empty stomach metoclopramide HCl [Reglan] 10 mg tablet 10 mg PO QIDACHS Qty: 120 6RF Hold Instructions: Doctor's Order senna 8.6 mg capsule 17.2 mg PO BEDTIME 30 Days Qty: 60 3RF sucralfate [Carafate] 100 mg/mL suspension 10 ml PO QID Qty: 1000 6RF Rx Instructions: swish in mouth and swallow; use after food/drink acetaminophen [Tylenol Extra Strength] 500 mg tablet 500 mg PO Q6H PRN (Reason: pain) 30 Days Qty: 120 1RF Referrals: [facility] [Primary Care Provider] - 1 week
[2022-07-16 10:47] VITALS: BP 124/71; BP 154/71; PULSE 83; PULSE 86; RESP 20; TEMP 36.8; O2SAT 100; O2SAT 99; BMI 26.5
== END 2022-07-16 12:16 | disposition home or self-care (01) ==
PROVIDERS: Emergency Provider Emergency Medicine
DX: U07.1 COVID-19 (principal); R06.02 Shortness of breath; E11.9 Type 2 diabetes mellitus without complications; I10 Essential (primary) hypertension; E78.00 Pure hypercholesterolemia, unspecified; Z79.02 Long term (current) use of antithrombotics/antiplatelets; Z79.84 Long term (current) use of oral hypoglycemic drugs; Z79.899 Other long term (current) drug therapy
CPT/HCPCS: 71046; 99283

== ENCOUNTER 2022-09-07 15:17 | Emergency (ER) | payer OTHER, SELFPAY ==
--- NOTE | ~2022-09-07 | CT_ITS ---
EXAMINATION: CT ABDOMEN AND PELVIS WITHOUT CONTRAST CLINICAL INFORMATION: Diffuse abdominal pain, nausea, vomiting, diarrhea COMPARISON: 04/30/2022 TECHNIQUE: Multidetector volumetric imaging was performed from the superior aspect of the liver through the pubic symphysis. Sagittal and coronal reformatted images were obtained on the technologist's workstation. This CT examination was performed using dose optimization techniques as appropriate, variously including the following: *Automated exposure control *Adjustment of mA and/or kV according to patient size (this includes techniques or standardized protocols for targeted exams where dose is matched to indication/reason for exam; i.e. extremities or head) *Use of iterative reconstruction technique DLP: 381. mGy-cm FINDINGS: LUNG BASES: Calcified granulomas are noted. Mild dependent atelectasis. LIVER, GALLBLADDER, AND BILIARY TREE: The liver is normal in size, shape, and attenuation. No focal hepatic lesion or biliary ductal dilatation is present. The gallbladder is unremarkable with no evidence of radiopaque gallstones, gallbladder wall thickening, or obvious pericholecystic inflammatory changes. PANCREAS: Unremarkable. SPLEEN: Unremarkable. ADRENAL GLANDS: Unremarkable. KIDNEYS AND URETERS: The kidneys are normal in size, shape, and attenuation. No hydronephrosis, hydroureter, or calculi seen. No perinephric stranding. BLADDER: Unremarkable. GASTROINTESTINAL TRACT: Gastric wall thickening is noted in the antropyloric region. Stomach, small bowel, and colon are normal in caliber. No additional bowel wall thickening. There is diverticulosis in the colon which is most pronounced in the region of the cecum and sigmoid colon. No findings of acute diverticulitis. No intraperitoneal free fluid or free air. ABDOMINAL WALL: No significant hernia is appreciated. LYMPH NODES: Normal. VASCULAR: Calcific atherosclerosis in the abdominal aorta. Air is normal in caliber. 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 PELVIC VISCERA: Status post hysterectomy. No adnexal lesions. OSSEOUS STRUCTURES: Chronic superior endplate compression fracture at the T11, unchanged. No acute fractures. Mild degenerative disc disease. 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 CT/CT abdomen pelvis wo IV con IMPRESSION: 1. Gastric wall thickening in the antropyloric region, potentially due to gastritis or peptic ulcer disease. Consider correlation with upper endoscopy if this relates with the patient's clinical picture. 2. Colonic diverticulosis without evidence of acute diverticulitis. Fleischner guidelines were followed.
[2022-09-07 15:30] VITALS: BP 195/95; PULSE 67; PULSE 77; RESP 17; TEMP 36.6; O2SAT 100; O2SAT 98; BMI 28.3
--- NOTE | 2022-09-07 15:45 | PC.NURSE ---
Pt resting on stretcher at this time, reports upper abdominal pain that radiates down to groin. Pt states pain has been present for approximately 5 days and she has no been able to keep food/drink down. Denies N/V/D at this time
[2022-09-07 16:16] VITALS: BP 180/72; PULSE 84; RESP 11; O2SAT 98
[2022-09-07 16:37] LABS: Appearance Urine Clear; Color Urine Yellow; Glucose Urine UA Negative (Negative); Leukocyte Esterase Urine Negative (Negative); Nitrite Urine Negative (Negative); PH 7.5 (5.0-9.0); Specific Gravity - Urine 1.015 (1.005-1.025); Urine Blood Negative (Negative); Urine Ketones 40 mg/dL (Negative); Urine Protein Trace mg/dL (Neg-Trace)
[2022-09-07 16:42] LABS: Bacteria Urine None Seen (None Seen); Hyaline Casts Urine 0-2 /LPF (0-2); RBC Urine 0-2 /HPF (0-2); Squamous Epithelial Cell Urine 0-2 /HPF (0-2); WBC Urine 0-5 /HPF (0-5)
[2022-09-07 16:59] LABS: MANUAL DIFF FLAG NO
[2022-09-07 17:01] LABS: Basophils Percent Auto 0.7 % (0-2); Eosinophils Absolute Auto 0.1 X10*3/uL (0.0-0.4); Eosinophils Percent Auto 1.3 % (0-4); Hematocrit 38.5 % (37.0-47.0); Hemoglobin 12.7 g/dl (12.0-16.0); Imm Gran Abs Auto 0.01 X10*3/uL (0.00-0.03); Imm Gran Pct Auto 0.2 % (0.0-0.4); Lymphocytes Percent Auto 33.3 % (20-40); Mean Corpuscular Hemoglobin 29.3 pg (27.0-33.0); Mean Corpuscular Volume 88.9 fL (80.0-98.0); Mean Platelet Volume 10.6 fL (9.4-12.3); Monocytes Absolute Auto 0.4 X10*3/uL (0.1-1.2); Monocytes Percent Auto 5.9 % (2-11); Neutrophils Absolute Auto 3.6 x10*3/uL (2.0-8.3); Neutrophils Percent Auto 58.6 % (45-73); Platelet Count 214 X10*3/uL (160-400); Red Blood Count 4.33 X10*6/uL (4.20-5.50); White Blood Count 6.1 X10*3/uL (4.8-10.8)
--- NOTE | 2022-09-07 17:05 | PC.NURSE ---
20g IV placed in left AC, labs obtained as well
--- NOTE | 2022-09-07 17:14 | ED_ITS ---
HPI - Abdominal Pain General Chief Complaint: Abdominal Pain <AYDIN Mccoy - Last Filed: 09/07/22 18:02> Stated Complaint: N/V/D,ABD PAIN X'S 2 DAYS FROM WALKIN PER EMS <AYDIN Mccoy - Last Filed: 09/07/22 18:02> Time Seen by Provider: 09/07/22 16:50 <AYDIN Mccoy - Last Filed: 09/07/22 18:02> Source: patient and EMS <AYDIN Mccoy Last Filed: 09/07/22 18:02> Mode of arrival: EMS <AYDIN Mccoy Last Filed: 09/07/22 18:02> History of Present Illness HPI narrative: 77-year-old Haitian-speaking female with a past medical history of asthma, diabetes, HTN, HLD, presenting to the ED complaining of nausea, nonbloody emesis and diarrhea, abdominal discomfort and decreased p.o. intake x5 days. Also reports associated chills. Denies fever, dysuria/hematuria, flank pain, suspicious food intake, recent travel <AYDIN Mccoy - Last Filed: 09/07/22 18:02> MD elicited complaint: abdominal pain <AYDIN Mccoy - Last Filed: 09/07/22 18:02> Onset (ago): day(s) <AYDIN Mccoy - Last Filed: 09/07/22 18:02> Related Data Home Medications: Previous Rx's Medication Instructions Recorded atorvastatin 80 mg tablet 80 mg PO DAILY 90 days #90 tabs 05/13/20 hydrochlorothiazide 12.5 mg tablet 12.5 mg PO DAILY 90 days #90 tabs 05/13/20 multivitamin 1 tab PO DAILY 30 days #30 tabs 05/13/20 pentosan polysulfate sodium 100 mg 100 mg PO TID 30 days #90 caps 05/13/20 capsule (Elmiron) tolterodine 2 mg tablet 2 mg PO BID #56 tabs 05/28/20 azithromycin 500 mg tablet See Rx Instructions PO .COMPLEX #6 07/25/20 (Zithromax TRI-KEYLA) tabs benzonatate 100 mg capsule 100 mg PO TID PRN cough #20 caps 07/25/20 (Tessalon Perles) dexamethasone 6 mg tablet 6 mg PO DAILY 10 days #10 tabs 07/25/20 hyoscyamine sulfate 0.125 mg tablet 0.25 mg PO QID PRN dyspepsia #10 07/31/20 tabs blood sugar diagnostic (FreeStyle #100 ea 08/29/20 Test strips) pantoprazole 40 mg tablet,delayed 40 mg PO DAILY 90 days #90 tabs 08/29/20 release sumatriptan succinate 50 mg tablet 50 mg PO Q2-4H PRN migraine 08/30/20 headache 30 days #9 tabs ibuprofen 600 mg tablet 600 mg PO Q8H PRN pain #14 tabs 09/03/20 cyclobenzaprine 5 mg tablet 5 mg PO BEDTIME PRN muscle spasm 09/08/20 30 days #30 tabs Carafate 100 mg/mL oral suspension 10 ml PO BID 30 days #600 mL 09/11/20 (sucralfate) lisinopril 30 mg tablet 30 mg PO DAILY #28 tabs 09/17/20 ezetimibe 10 mg tablet (Zetia) 10 mg PO DAILY 90 days #90 tabs 11/04/20 pioglitazone 30 mg tablet 30 mg PO DAILY #90 tabs 11/04/20 fluticasone propionate 44 2 puff PO BID 30 days #31.8 grams 02/13/21 mcg/actuation HFA aerosol inhaler (Flovent HFA) metformin 1,000 mg tablet 1,000 mg PO BID 90 days #180 tabs 03/03/21 cefpodoxime 200 mg tablet 200 mg PO Q12H 10 days #20 tabs 05/04/21 ketorolac 10 mg tablet 10 mg PO QID 5 days #20 tabs 05/04/21 acetaminophen 500 mg tablet 500 mg PO Q6H PRN pain 30 days 07/08/21 (Tylenol Extra Strength) #120 tabs risperidone 0.5 mg tablet 0.5 mg PO DAILY 90 days #90 tabs 02/16/22 (Risperdal) acetaminophen 325 mg tablet 325 mg PO Q6H PRN pain #30 tabs 04/30/22 (Tylenol) metoclopramide HCl 10 mg tablet 10 mg PO QIDACHS nausea and 05/25/22 (Reglan) vomiting #120 tabs sennosides 8.6 mg capsule (senna) 17.2 mg PO BEDTIME constipation 30 05/25/22 days #60 caps sucralfate 100 mg/mL oral 10 ml PO QID #1,000 mL 05/25/22 suspension (Carafate) ondansetron 4 mg disintegrating 4 mg PO Q8H 3 days #9 tabs 07/11/22 tablet omeprazole 40 mg capsule,delayed 40 mg PO BID 14 days #28 caps 09/07/22 release sucralfate 1 gram tablet (Carafate) 1 g PO TID 30 days #90 tabs 09/07/22 <AYDIN Mccoy - Last Filed: 09/07/22 18:02> Allergies/Adverse Reactions: Allergies Allergy/AdvReac Type Severity Reaction Status Date / Time Iodinated Contrast Media Allergy Unknown ITCHY Verified 09/07/22 15:34 [IV CONTRAST] lactose [LACTOSE] Allergy Unknown EYES Verified 09/07/22 15:34 SWELLING morphine Allergy Unknown swelling Verified 09/07/22 15:34 oxycodone [Percocet] Allergy Unknown anaphylaxis Verified 09/07/22 15:34 tramadol Allergy Unknown pruritus, Verified 09/07/22 15:34 nausea dulaglutide [Trulicity] AdvReac Unknown vomiting Verified 09/07/22 15:34 oxybutynin AdvReac Unknown dizziness Verified 09/07/22 15:34 latex Allergy Unknown Itching Uncoded 09/07/22 19:50 <AYDIN Mccoy Last Filed: 09/07/22 18:02> Review of Systems Review of Systems Constitutional:No Fever, + Chills, No Night Sweats, No Fatigue, No Malaise ENT/Mouth: No Ear Pain, No Nasal Congestion, No sore throat, No Rhinorrhea, No Swallowing Difficulty Eyes: No Eye Pain, No Swelling, No Redness, No Vision Changes Cardiovascular: No Chest Pain, No SOB, No Dyspnea on Exertion, No Orthopnea, No Edema, No Palpitations Respiratory: No Cough, No Sputum, No Dyspnea Gastrointestinal: + Nausea, + Vomiting, + Diarrhea, No Constipation, + Abdominal pain, No Hematochezia, No Melena Genitourinary: No irregular bleeding, No Dysuria, No Hematuria, No Urinary Incontinence/retention, No Flank Pain Musculoskeletal: No joint pain, No Myalgias, No Joint Swelling Skin: No Skin Lesions, No rash Neuro: No Weakness, No Numbness, No Dizziness, No Headache <AYDIN Mccoy - Last Filed: 09/07/22 18:02> Yes all other systems are reviewed and are negative <AYDIN Mccoy - Last Filed: 09/07/22 18:02> Constitutional: Reports as per HPI <AYDIN Mccoy - Last Filed: 09/07/22 18:02> [facility] Past Medical History Attestation statement: The following information was validated with the patient. <AYDIN Mccoy - Last Filed: 09/07/22 18:02> Medical History: Medical History Asthma Diabetes mellitus Essential hypertension Pure hypercholesterolemia <AYDIN Mccoy - Last Filed: 09/07/22 18:02> Surgical History: Surgical History History of bladder surgery History of esophagogastroduodenoscopy (EGD) History of surgery History of tubal ligation Hx of colonoscopy S/P [id number] (total abdominal hysterectomy and bilateral salpingo-oophorectomy) <AYDIN Mccoy - Last Filed: 09/07/22 18:02> Family History Family History: Family History Father Medical history unknown Mother Medical history unknown Family/Other Diabetes Hypertension <AYDIN Mccoy - Last Filed: 09/07/22 18:02> Social History Social History: Social History Household Members: None Alcohol intake: never Advance Directives: No Advance Directives Information Provided: Yes Current occupational status: disabled <AYDIN Mccoy - Last Filed: 09/07/22 18:02> Physical Exam ED Vital Signs: Vital Signs - 24 hr 09/07/22 15:30 09/07/22 16:16 09/07/22 19:04 Temperature 97.8 F Pulse Rate 77 84 74 Respiratory Rate 17 11 L 13 Blood Pressure 195/95 H 180/72 H Pulse Oximetry 100 98 100 Oxygen Delivery Method Room Air Room Air Room Air 09/07/22 21:49 Temperature Pulse Rate 71 Respiratory Rate 12 Blood Pressure 170/85 H Pulse Oximetry 96 Oxygen Delivery Method Room Air BMI result Body Mass Index 28.3 <AYDIN Mccoy - Last Filed: 09/07/22 18:02> Vital Signs - 24 hr 09/07/22 15:30 09/07/22 16:16 09/07/22 19:04 Temperature 97.8 F Pulse Rate 77 84 74 Respiratory Rate 17 11 L 13 Blood Pressure 195/95 H 180/72 H Pulse Oximetry 100 98 100 Oxygen Delivery Method Room Air Room Air Room Air 09/07/22 21:49 Temperature Pulse Rate 71 Respiratory Rate 12 Blood Pressure 170/85 H Pulse Oximetry 96 Oxygen Delivery Method Room Air BMI result Body Mass Index 28.3 <Shae Vaz NP - Last Filed: 09/07/22 21:57> Const General: cooperative, healthy appearing and no acute distress <AYDIN Mccoy - Last Filed: 09/07/22 18:02> Orientation/consciousness: patient oriented x3 <AYDIN Mccoy - Last Filed: 09/07/22 18:02> Limitations: no limitations <AYDIN Mccoy - Last Filed: 09/07/22 18:02> HENMT Head: Yes normal to inspection and Yes atraumatic <AYDIN Mccoy - Last Filed: 09/07/22 18:02> Ears: hearing grossly normal bilaterally <AYDIN Mccoy - Last Filed: 09/07/22 18:02> General nose exam: Normal external nose present <AYDIN Mccoy - Last Filed: 09/07/22 18:02> Face and sinus: Yes normal facial exam <AYDIN Mccoy - Last Filed: 09/07/22 18:02> Eyes General: appearance normal, both eyes and all related structures <AYDIN Mccoy - Last Filed: 09/07/22 18:02> EOM: EOMs intact bilaterally <AYDIN Mccoy - Last Filed: 09/07/22 18:02> Neck Neck: Yes normal visual inspection and Yes no meningeal signs <AYDIN Mccoy - Last Filed: 09/07/22 18:02> Resp Effort & Inspection: normal respiratory effort and no respiratory distress <AYDIN Mccoy - Last Filed: 09/07/22 18:02> Auscultation: clear to auscultation bilaterally, no crackles, no rhonchi and no wheezes <AYDIN Mccoy - Last Filed: 09/07/22 18:02> Cardio Rate: regular rate <AYDIN Mccoy - Last Filed: 09/07/22 18:02> Heart sounds: S1 normal heart sound present and S2 normal heart sound present <AYDIN Mccoy - Last Filed: 09/07/22 18:02> GI Inspection: Yes normal to inspection <AYDIN Mccoy - Last Filed: 09/07/22 18:02> Palpation (GI): Soft to palpation, Tenderness to palpation present (GI) (diffusely) with no rebound tenderness, no guarding and not rigid <AYDIN Mccoy - Last Filed: 09/07/22 18:02> Skin Rashes: no rashes <AYDIN Mccoy - Last Filed: 09/07/22 18:02> Wounds: no wounds <AYDIN Mccoy - Last Filed: 09/07/22 18:02> Neuro General: patient oriented x3, tone normal and no meningeal signs <AYDIN Mccoy - Last Filed: 09/07/22 18:02> Gait exam (Neuro): Normal gait present <AYDIN Mccoy - Last Filed: 09/07/22 18:02> Extrem General: Yes normal to inspection and Yes no pedal edema <AYDIN Mccoy - Last Filed: 09/07/22 18:02> Course Course Course Narrative: -1719--no leukocytosis -labs otherwise unremarkable. UA not infected 1800--ED care transfer to [facility] pending CT AP, p.o. challenge and dispo per results <AYDIN Mccoy - Last Filed: 09/07/22 18:02> -1719--no leukocytosis -labs otherwise unremarkable. UA not infected 1800--ED care transfer to [facility] pending CT AP, p.o. challenge and dispo per results Plan of care is for patient to be discharged home and follow-up with Gastroenterology. Et[place] text with Dr. Demarco, he agrees with plan for omeprazole twice a day 14 days, Carafate, and outpatient follow-up. I did discuss this plan with the patient, who agrees with this plan of care. Patient verbalized understanding of and agrees to plan. Verbalized understanding of sinus symptoms indicating need for emergent intervention. <Shae Vaz NP - Last Filed: 09/07/22 21:57> Medical Decision Making Medical Decision Making MDM Narrative: 77-year-old Haitian-speaking female with a past medical history of asthma, diabetes, HTN, HLD, presenting to the ED complaining of nausea, nonbloody e mesis and diarrhea, abdominal discomfort and decreased p.o. intake x5 days. On exam vital signs stable, NAD, nontoxic appearing, abdomen soft, diffusely tender, no rebound or guarding, no CVA tenderness. Concern for colitis vs gastroenteritis vs diverticulitis or appendicitis. Cholecystitis/lithiasis and pancreatitis on differential however lower. Rule UTI and metabolic abnormalities Plan: EKG, labs, UA, CT AP, IVF, antiemetic, pain medication, re-evaluate Please refer to course for remaining clinical decision making, interpretation of labs/imaging results, and discussions with consultants and/or family members. <AYDIN Mccoy - Last Filed: 09/07/22 18:02> Differential Diagnosis Differential Diagnoses: The differential diagnosis associated with the presentation includes <AYDIN Mccoy - Last Filed: 09/07/22 18:02> as above <AYDIN Mccoy - Last Filed: 09/07/22 18:02> Admission/Observation Consideration of admission/observation: Escalation of care including admission/observation considered <AYDIN Mccoy Last Filed: 09/07/22 18:02> Consult Healthcare Provider Management of the patient was discussed with: Medical Practice Manager <Shae Vaz NP - Last Filed: 09/07/22 21:57> Dav <Shae Vaz NP - Last Filed: 09/07/22 21:57> Lab Data [facility] Lab Attestation statement: I reviewed the patient's lab results. <AYDIN Mccoy Last Filed: 09/07/22 18:02> Result Diagrams: 09/07/22 16:55 09/07/22 16:55 <AYDIN Mccoy - Last Filed: 09/07/22 18:02> Labs: Lab Results 09/07/22 09/07/22 09/07/22 Range/Units 16:28 16:55 16:55 WBC 6.1 (4.8-10.8) X10*3/uL RBC 4.33 (4.20-5.50) X10*6/uL Hgb 12.7 (12.0-16.0) g/dl Hct 38.5 (37.0-47.0) % MCV 88.9 (80.0-98.0) fL MCH 29.3 (27.0-33.0) pg MCHC 33.0 (31.0-35.0) g/dl RDW 14.0 (11.0-16.0) % Plt Count 214 (160-400) X10*3/uL MPV 10.6 (9.4-12.3) fL Immature Gran % (Auto) 0.2 (0.0-0.4) % Neut % (Auto) 58.6 (45-73) % Lymph % (Auto) 33.3 (20-40) % [place] % (Auto) 5.9 (2-11) % Eos % (Auto) 1.3 (0-4) % Baso % (Auto) 0.7 (0-2) % Lymph # (Auto) 2.0 (1.2-4.9) X10*3/uL [place] # (Auto) 0.4 (0.1-1.2) X10*3/uL Eos # (Auto) 0.1 (0.0-0.4) X10*3/uL Baso # (Auto) 0.0 (0.0-0.2) X10*3/uL Abs Immat Gran (auto) 0.01 (0.00-0.03) X10*3/uL Absolute Neuts (auto) 3.6 (2.0-8.3) x10*3/uL Absolute Nucleated RBC 0.000 (0.0-0.012) X10*3/uL Nucleated RBC % (auto) 0.0 (0.0-0.2) /100WBC Sodium 142 (135-145) mmol/L Potassium 4.2 (3.3-5.1) mmol/L Chloride 105 (96-108) mmol/L Carbon Dioxide 25 (22-29) mmol/L Anion Gap 16 (12-20) BUN 12 (9-16) mg/dL Creatinine 0.65 (0.5-1.4) mg/dL Estim Creat Clear Calc 63.9 Estimated GFR > 60 Random Glucose 145 H (60-115) mg/dL Calcium 10.2 D (8.4-10.2) mg/dL Magnesium 1.7 (1.6-2.6) mg/dL Total Bilirubin 0.7 (0.0-1.0) mg/dL Direct Bilirubin 0.2 (0.0-0.5) mg/dL AST 22 (5-31) U/L ALT 18 (0-31) U/L Alkaline Phosphatase 84 (39-117) U/L Total Protein 6.8 (6.5-8.0) g/dL Albumin 4.4 (3.5-5.0) g/dL Lipase 14 (8-78) U/L Urine Color Yellow Urine Appearance Clear Urine pH 7.5 (5.0-9.0) Ur Specific [place] 1.015 (1.005-1.025) Urine Protein Trace (Neg-Trace) mg/dL Urine Glucose (UA) Negative (Negative) mg/dL Urine Ketones 40 (Negative) mg/dL Urine Blood Negative (Negative) Urine Nitrite Negative (Negative) Ur Leukocyte Esterase Negative (Negative) Urine RBC 0-2 (0-2) /HPF Urine WBC 0-5 (0-5) /HPF Ur Squamous Epith Cells 0-2 (0-2) /HPF Urine Bacteria None Seen (None Seen) Hyaline Casts 0-2 (0-2) /LPF <AYDIN Mccoy - Last Filed: 09/07/22 18:02> Lab Results 09/07/22 09/07/22 09/07/22 Range/Units 16:28 16:55 16:55 WBC 6.1 (4.8-10.8) X10*3/uL RBC 4.33 (4.20-5.50) X10*6/uL Hgb 12.7 (12.0-16.0) g/dl Hct 38.5 (37.0-47.0) % MCV 88.9 (80.0-98.0) fL MCH 29.3 (27.0-33.0) pg MCHC 33.0 (31.0-35.0) g/dl RDW 14.0 (11.0-16.0) % Plt Count 214 (160-400) X10*3/uL MPV 10.6 (9.4-12.3) fL Immature Gran % (Auto) 0.2 (0.0-0.4) % Neut % (Auto) 58.6 (45-73) % Lymph % (Auto) 33.3 (20-40) % [place] % (Auto) 5.9 (2-11) % Eos % (Auto) 1.3 (0-4) % Baso % (Auto) 0.7 (0-2) % Lymph # (Auto) 2.0 (1.2-4.9) X10*3/uL [place] # (Auto) 0.4 (0.1-1.2) X10*3/uL Eos # (Auto) 0.1 (0.0-0.4) X10*3/uL Baso # (Auto) 0.0 (0.0-0.2) X10*3/uL Abs Immat Gran (auto) 0.01 (0.00-0.03) X10*3/uL Absolute Neuts (auto) 3.6 (2.0-8.3) x10*3/uL Absolute Nucleated RBC 0.000 (0.0-0.012) X10*3/uL Nucleated RBC % (auto) 0.0 (0.0-0.2) /100WBC Sodium 142 (135-145) mmol/L Potassium 4.2 (3.3-5.1) mmol/L Chloride 105 (96-108) mmol/L Carbon Dioxide 25 (22-29) mmol/L Anion Gap 16 (12-20) BUN 12 (9-16) mg/dL Creatinine 0.65 (0.5-1.4) mg/dL Estim Creat Clear Calc 63.9 Estimated GFR > 60 Random Glucose 145 H (60-115) mg/dL Calcium 10.2 D (8.4-10.2) mg/dL Magnesium 1.7 (1.6-2.6) mg/dL Total Bilirubin 0.7 (0.0-1.0) mg/dL Direct Bilirubin 0.2 (0.0-0.5) mg/dL AST 22 (5-31) U/L ALT 18 (0-31) U/L Alkaline Phosphatase 84 (39-117) U/L Total Protein 6.8 (6.5-8.0) g/dL Albumin 4.4 (3.5-5.0) g/dL Lipase 14 (8-78) U/L Urine Color Yellow Urine Appearance Clear Urine pH 7.5 (5.0-9.0) Ur Specific [place] 1.015 (1.005-1.025) Urine Protein Trace (Neg-Trace) mg/dL Urine Glucose (UA) Negative (Negative) mg/dL Urine Ketones 40 (Negative) mg/dL Urine Blood Negative (Negative) Urine Nitrite Negative (Negative) Ur Leukocyte Esterase Negative (Negative) Urine RBC 0-2 (0-2) /HPF Urine WBC 0-5 (0-5) /HPF Ur Squamous Epith Cells 0-2 (0-2) /HPF Urine Bacteria None Seen (None Seen) Hyaline Casts 0-2 (0-2) /LPF <Shae Vaz NP - Last Filed: 09/07/22 21:57> Independent Interpretation I performed an independent interpretation of an: EKG <AYDIN Mccoy - Last Filed: 09/07/22 18:02> CT Scan <Shae Vaz NP - Last Filed: 09/07/22 21:57> Interpretation: EKG normal sinus rhythm with sinus arrhythmia at a rate of 76. [place] interval 154. QTC 456. Inverted T-wave in V1 and lead 3. No STEMI <AYDIN Mccoy - Last Filed: 09/07/22 18:02> Radiology Impression Discussion of test interpretation with radiology: I have reviewed the radiologist's reading. <Shae Vaz NP - Last Filed: 09/07/22 21:57> Radiologist Impression: EXAMINATION: CT ABDOMEN AND PELVIS WITHOUT CONTRAST? CLINICAL INFORMATION: Diffuse abdominal pain, nausea, vomiting, diarrhea? COMPARISON: 04/30/2022? TECHNIQUE: Multidetector volumetric imaging was performed from the superior aspect of the liver through the pubic symphysis. Sagittal and coronal reformatted images were obtained on the technologist's workstation.? This CT examination was performed using dose optimization techniques as appropriate, variously including the following: *Automated exposure control *Adjustment of mA and/or kV according to patient size (this includes techniques or standardized protocols for targeted exams where dose is matched to indication/reason for exam; i.e. extremities or head) *Use of iterative reconstruction technique DLP: 381. mGy-cm FINDINGS: LUNG BASES: Calcified granulomas are noted. Mild dependent atelectasis. ? LIVER, GALLBLADDER, AND BILIARY TREE: The liver is normal in size, shape, and attenuation. No focal hepatic lesion or biliary ductal dilatation is present. The gallbladder is unremarkable with no evidence of radiopaque gallstones, gallbladder wall thickening, or obvious pericholecystic inflammatory changes.? PANCREAS: Unremarkable.? SPLEEN: Unremarkable.? ADRENAL GLANDS: Unremarkable.? KIDNEYS AND URETERS: The kidneys are normal in size, shape, and attenuation. No hydronephrosis, hydroureter, or calculi seen. No perinephric stranding. ? BLADDER: Unremarkable.? GASTROINTESTINAL TRACT: Gastric wall thickening is noted in the antropyloric region. Stomach, small bowel, and colon are normal in caliber. No additional bowel wall thickening. There is diverticulosis in the colon which is most pronounced in the region of the cecum and sigmoid colon. No findings of acute diverticulitis. No intraperitoneal free fluid or free air. ABDOMINAL WALL: No significant hernia is appreciated.? LYMPH NODES: Normal. VASCULAR: Calcific atherosclerosis in the abdominal aorta. Air is normal in caliber. 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 PELVIC VISCERA: Status post hysterectomy. No adnexal lesions.? OSSEOUS STRUCTURES: Chronic superior endplate compression fracture at the T11, unchanged. No acute fractures. Mild degenerative disc disease. 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 CT/CT abdomen pelvis wo IV con IMPRESSION: 1.? Gastric wall thickening in the antropyloric region, potentially due to gastritis or peptic ulcer disease. Consider correlation with upper endoscopy if this relates with the patient's clinical picture. 2.? Colonic diverticulosis without evidence of acute diverticulitis. <Shae Vaz NP - Last Filed: 02/08/23 21:57> External Record Review External record reviewed: Inpatient record, Outpatient record and Prior outpatient labs <Shae Vaz NP - Last Filed: 09/07/22 21:57> Medications Administered Discontinued Medications Generic Name Dose Route Start Last Admin Trade Name Freq PRN Reason Stop Dose Admin Al Hydroxide/Mg Hydroxide 30 ml 09/07/22 19:26 09/07/22 19:31 Magnesium Hydrox/Alum Hydrox 30 Ml Oral.Susp PO 09/07/22 19:27 30 ml ONCE ONE Administration Belladonna Alkaloids/Phenobarbital 10 ml 09/07/22 19:26 09/07/22 19:31 Phenobarb/Hyoscy/Atropine/Scop 10 Ml Elixir PO 09/07/22 19:27 10 ml ONCE ONE Administration Sodium Chloride 1,000 mls @ 999 mls/hr 09/07/22 17:15 09/07/22 18:17 Ns IV 09/07/22 18:15 Infused .Q1H1M MICAELA Infusion Ketorolac Tromethamine 15 mg 09/07/22 17:06 09/07/22 17:19 Ketorolac Tromethamine 15 Mg/Ml Vial IVPUSH 09/07/22 17:07 15 mg ONCE ONE Administration Lidocaine HCl 15 ml 09/07/22 19:26 09/07/22 19:31 Lidocaine Hcl Viscous 2 % 15 Ml Solution MUCOUS MEM 09/07/22 19:27 15 ml ONCE ONE Administration Ondansetron HCl 4 mg 09/07/22 17:06 09/07/22 17:19 Ondansetron Hcl 4 Mg/2 Ml Vial IVPUSH 09/07/22 17:07 4 mg ONCE ONE Administration Sucralfate 1 gm 09/07/22 19:26 09/07/22 19:31 Sucralfate 1 Gm Tablet PO 09/07/22 19:27 1 gm ONCE ONE Administration <AYDIN Mccoy - Last Filed: 09/07/22 18:02> Medications Administered Discontinued Medications Generic Name Dose Route Start Last Admin Trade Name Freq PRN Reason Stop Dose Admin Al Hydroxide/Mg Hydroxide 30 ml 09/07/22 19:26 09/07/22 19:31 Magnesium Hydrox/Alum Hydrox 30 Ml Oral.Susp PO 09/07/22 19:27 30 ml ONCE ONE Administration Belladonna Alkaloids/Phenobarbital 10 ml 09/07/22 19:26 09/07/22 19:31 Phenobarb/Hyoscy/Atropine/Scop 10 Ml Elixir PO 09/07/22 19:27 10 ml ONCE ONE Administration Sodium Chloride 1,000 mls @ 999 mls/hr 09/07/22 17:15 09/07/22 18:17 Ns IV 09/07/22 18:15 Infused .Q1H1M MICAELA Infusion Ketorolac Tromethamine 15 mg 09/07/22 17:06 09/07/22 17:19 Ketorolac Tromethamine 15 Mg/Ml Vial IVPUSH 09/07/22 17:07 15 mg ONCE ONE Administration Lidocaine HCl 15 ml 09/07/22 19:26 09/07/22 19:31 Lidocaine Hcl Viscous 2 % 15 Ml Solution MUCOUS MEM 09/07/22 19:27 15 ml ONCE ONE Administration Ondansetron HCl 4 mg 09/07/22 17:06 09/07/22 17:19 Ondansetron Hcl 4 Mg/2 Ml Vial IVPUSH 09/07/22 17:07 4 mg ONCE ONE Administration Sucralfate 1 gm 09/07/22 19:26 09/07/22 19:31 Sucralfate 1 Gm Tablet PO 09/07/22 19:27 1 gm ONCE ONE Administration <Shae Vaz NP - Last Filed: 09/07/22 21:57> Discharge Plan Discharge Clinical Impression: Gastroenteritis, Abdominal pain <AYDIN Mccoy - Last Filed: 09/07/22 18:02> Patient Disposition: Home, Self-Care <AYDIN Mccoy - Last Filed: 09/07/22 18:02> Instructions: Gastritis (ED), Abdominal Pain (ED) <AYDIN Mccoy - Last Filed: 09/07/22 18:02> Additional Instructions: Le evaluaron por dolor abdominal. La tomograf?a computarizada del abdomen y la pelvis tiene hallazgos consistentes con gastritis y posible enfermedad de ?lcera p?ptica. [place] omeprazol dos veces al d?a yazmin los pr?ximos 14 d?as. Tiana Carafate 3 veces al d?a antes de las comidas Llame a Gastroenterolog?a para lakeisha cecile. Te remit? al Dr. Demarco. Nu por elegir janna departamento de emergencias para choi evaluaci?n. Por favor, belle un seguimiento con el m?dico de atenci?n primaria seg?n sea necesario. Regrese al departamento de emergencias por cualquier s?ntoma nuevo, preocupante o que empeore. You were evaluated for abdominal pain. CT scan of abdomen and pelvis has findings consistent with gastritis and possible peptic ulcer disease. Please take omeprazole twice a day for the next 14 days. Take Carafate 3 times a day before meals Call Gastroenterology for an appointment. I referred you to Dr. Demarco. Thank you for choosing this emergency department for evaluation. Please follow-up with primary care physician as needed. Return to the emergency department for any new, concerning, or worsening symptoms. <AYDIN Mccoy - Last Filed: 09/07/22 18:02> Prescriptions: New omeprazole 40 mg capsule,delayed release(DR/EC) 40 mg PO BID 14 Days Qty: 28 0RF sucralfate [Carafate] 1 gram tablet 1 g PO TID 30 Days Qty: 90 2RF No Action atorvastatin 80 mg tablet 80 mg PO DAILY 90 Days Qty: 90 3RF hydrochlorothiazide 12.5 mg tablet 12.5 mg PO DAILY 90 Days Qty: 90 3RF multivitamin Tablet 1 tab PO DAILY 30 Days Qty: 30 11RF Elmiron 100 mg capsule 100 mg PO TID 30 Days Qty: 90 11RF tolterodine 2 mg tablet 2 mg PO BID Qty: 56 11RF (DME) FreeStyle Test Strip See Rx Instructions .ROUTE .MEDSUPPLY Qty: 100 11RF Rx Instructions: Use 1 test strip twice a day pantoprazole 40 mg tablet,delayed release (DR/EC) 40 mg PO DAILY 90 Days Qty: 90 3RF sumatriptan succinate 50 mg tablet 50 mg PO Q2-4H PRN (Reason: migraine headache) 30 Days Qty: 9 6RF Rx Instructions: do not exceed 4 doses per 24 hrs cyclobenzaprine 5 mg tablet 5 mg PO BEDTIME PRN (Reason: muscle spasm) 30 Days Qty: 30 0RF lisinopril 30 mg tablet 30 mg PO DAILY Qty: 28 6RF ezetimibe [Zetia] 10 mg tablet 10 mg PO DAILY 90 Days Qty: 90 3RF pioglitazone 30 mg tablet 30 mg PO DAILY Qty: 90 3RF Flovent HFA 44 mcg/actuation HFA aerosol inhaler 2 puff PO BID 30 Days Qty: 31.8 6RF metformin 1,000 mg tablet 1,000 mg PO BID 90 Days Qty: 180 1RF risperidone [Risperdal] 0.5 mg tablet 0.5 mg PO DAILY 90 Days Qty: 90 2RF ibuprofen 600 mg tablet 600 mg PO Q8H PRN (Reason: pain) Qty: 14 0RF dexamethasone 6 mg tablet 6 mg PO DAILY 10 Days Qty: 10 0RF azithromycin [Zithromax TRI-KEYLA] 500 mg tablet See Rx Instructions .ROUTE .COMPLEX Qty: 6 0RF Rx Instructions: take 500 mg today (day 1), then 250 mg for 4 days (days 2-5) benzonatate [Tessalon Perles] 100 mg capsule 100 mg PO TID PRN (Reason: cough) Qty: 20 0RF hyoscyamine sulfate 0.125 mg tablet 0.25 mg PO QID PRN (Reason: dyspepsia) Qty: 10 0RF acetaminophen [Tylenol] 325 mg tablet 325 mg PO Q6H PRN (Reason: pain) Qty: 30 0RF ondansetron 4 mg tablet,disintegrating 4 mg PO Q8H 3 Days Qty: 9 0RF cefpodoxime 200 mg tablet 200 mg PO Q12H 10 Days Qty: 20 0RF Rx Instructions: must administer with a meal/food ketorolac 10 mg tablet 10 mg PO QID 5 Days Qty: 20 0RF sucralfate [Carafate] 100 mg/mL suspension 10 ml PO BID 30 Days Qty: 600 4RF Rx Instructions: 10mL at noon and bedtime on an empty stomach metoclopramide HCl [Reglan] 10 mg tablet 10 mg PO QIDACHS Qty: 120 6RF Hold Instructions: Doctor's Order senna 8.6 mg capsule 17.2 mg PO BEDTIME 30 Days Qty: 60 3RF sucralfate [Carafate] 100 mg/mL suspension 10 ml PO QID Qty: 1000 6RF Rx Instructions: swish in mouth and swallow; use after food/drink acetaminophen [Tylenol Extra Strength] 500 mg tablet 500 mg PO Q6H PRN (Reason: pain) 30 Days Qty: 120 1RF <AYDIN Mccoy - Last Filed: 09/07/22 18:02>
[2022-09-07] MEDS: 0.9 % Sodium Chloride 1,000 ML 999 ML IV (17:19)
[2022-09-07] MEDS: ondansetron HCL 4 MG/2 ML VIAL IVPUSH (17:19)
[2022-09-07] MEDS: Ketorolac Tromethamine 15 MG/ML VIAL IVPUSH (17:19)
--- NOTE | 2022-09-07 17:19 | ECG_ITS ---
Test Reason : abdominal pain Blood Pressure : / mmHG Vent. Rate : 076 BPM Atrial Rate : 076 BPM P-R Int : 154 ms QRS Dur : 086 ms QT Int : 406 ms P-R-T Axes : 048 002 010 degrees QTc Int : 456 ms Normal sinus rhythm with sinus arrhythmia Normal ECG When compared with ECG of 30-APR-2022 07:20, No significant change was found Referred By: Rosalinda Fraire Electronically Signed By:ALESSANDRO FLEMING MD
--- NOTE | 2022-09-07 17:34 | PC.NURSE ---
all medications administered per SEP, awaiting CT at this time
[2022-09-07 17:40] LABS: Alanine Aminotransferase 18 U/L (0-31); Albumin Level 4.4 g/dL (3.5-5.0); Alkaline Phosphatase 84 U/L (39-117); Anion Gap 16 (12-20); Aspartate Amino Transferase 22 U/L (5-31); Bilirubin Direct 0.2 mg/dL (0.0-0.5); Bilirubin Total 0.7 mg/dL (0.0-1.0); Blood Urea Nitrogen 12 mg/dL (9-16); Calcium 10.2 mg/dL (8.4-10.2); Carbon Dioxide 25 mmol/L (22-29); Chloride 105 mmol/L (96-108); Creatinine Clr Calc Pharmacy 63.9; Estimated Glomerular Filt Rate > 60; Glucose Random 145 mg/dL (60-115); Lipase 14 U/L (8-78); Magnesium 1.7 mg/dL (1.6-2.6); Potassium 4.2 mmol/L (3.3-5.1); Sodium 142 mmol/L (135-145); Total Protein 6.8 g/dL (6.5-8.0)
[2022-09-07 19:04] VITALS: PULSE 74; RESP 13; O2SAT 100
[2022-09-07] MEDS: Lidocaine HCl Viscous 2 % 15 ML SOLUTION MUCOUS MEM (19:31)
[2022-09-07] MEDS: PHENobarb/Hyoscy/Atropine/Scop 10 ML ELIXIR PO (19:31)
[2022-09-07] MEDS: Sucralfate 1 GM TABLET PO (19:31)
[2022-09-07] MEDS: Magnesium Hydrox/Alum Hydrox 30 ML ORAL.SUSP PO (19:31)
--- NOTE | 2022-09-07 19:42 | PC.NURSE ---
pt was reporting increased pain, this RN spoke with JUDITH Kaufman. New medications ordered and administered
--- NOTE | 2022-09-07 21:21 | PC.NURSE ---
awaiting provider to determine next steps with patient. Pt reports decreased pain, no apparent distress at this time.
[2022-09-07 21:49] VITALS: BP 170/85; PULSE 71; RESP 12; O2SAT 96
[2022-09-07 22:08] VITALS: BP 158/69; PULSE 71; RESP 16; O2SAT 98
== END 2022-09-07 22:09 | disposition home or self-care (01) ==
PROVIDERS: Physician Assistant; Emergency Provider Emergency Medicine Emergency Medical Services
DX: K52.9 Noninfective gastroenteritis and colitis, unspecified (principal); R10.9 Unspecified abdominal pain; E11.9 Type 2 diabetes mellitus without complications; I10 Essential (primary) hypertension; E78.5 Hyperlipidemia, unspecified; Z79.02 Long term (current) use of antithrombotics/antiplatelets; Z79.899 Other long term (current) drug therapy; Z79.84 Long term (current) use of oral hypoglycemic drugs
CPT/HCPCS: 36415; 74176; 80048; 80076; 81001; 83690; 83735; 85025; 93005; 96361; 96374; 96375; 99284; 99285; J1885; J2405

== ENCOUNTER 2022-11-07 10:01 | Outpatient (REF) | payer OTHER, SELFPAY ==
--- NOTE | ~2022-11-07 | XR_ITS ---
EXAMINATION: XR FINGER, RIGHT CLINICAL INFORMATION: Pain. COMPARISON: None available. TECHNIQUE: Frontal, oblique and lateral views of the right long (third) finger are submitted. FINDINGS: The bones and soft tissues are normal. No fracture. Alignment is anatomic. Joint spaces are maintained. XR/XR finger RT min 2V IMPRESSION: Normal finger radiographs.
== END 2022-11-07 10:02 | disposition home or self-care (01) ==
LOC: HO.XRAY 10:01
PROVIDERS: Visit Provider Emergency Medicine
DX: M79.644 Pain in right finger(s) (principal)
CPT/HCPCS: 73140

== ENCOUNTER 2023-01-05 08:00 | Outpatient (REF) | payer OTHER, SELFPAY ==
--- NOTE | ~2023-01-05 | CT_ITS ---
EXAMINATION: CT ABDOMEN AND PELVIS WITHOUT CONTRAST CLINICAL INFORMATION: Diarrhea COMPARISON: Previous CT of the abdomen and pelvis August 2022 TECHNIQUE: Multidetector volumetric imaging was performed from the superior aspect of the liver through the pubic symphysis. Sagittal and coronal reformatted images were obtained on the technologist's workstation. This CT examination was performed using dose optimization techniques as appropriate, variously including the following: *Automated exposure control *Adjustment of mA and/or kV according to patient size (this includes techniques or standardized protocols for targeted exams where dose is matched to indication/reason for exam; i.e. extremities or head) *Use of iterative reconstruction technique DLP: 283 mGy-cm FINDINGS: LUNG BASES: Calcified pulmonary nodules suggestive of calcified granulomas. LIVER, GALLBLADDER, AND BILIARY TREE: The liver is normal in size, shape, and attenuation. No focal hepatic lesion or biliary ductal dilatation is present. The gallbladder is unremarkable with no evidence of radiopaque gallstones, gallbladder wall thickening, or obvious pericholecystic inflammatory changes. PANCREAS: Unremarkable. SPLEEN: Unremarkable. ADRENAL GLANDS: Unremarkable. KIDNEYS AND URETERS: The kidneys are normal in size, shape, and attenuation. No hydronephrosis, hydroureter, or calculi seen. No perinephric stranding. BLADDER: Small amount of air in the bladder. GASTROINTESTINAL TRACT: Mild diverticulosis. Question mild wall thickening of the distal colon versus changes due to underdistention. Prominent soft tissue in the anorectal region. Correlation with physical exam recommended. The small and large bowel are otherwise unremarkable. The appendix is unremarkable. Wall thickening in the distal stomach appears improved. ABDOMINAL WALL: No significant hernia is appreciated. LYMPH NODES: Normal. VASCULAR: Large left upper quadrant varices. Atherosclerotic disease. No aneurysm. No ascites. PELVIC VISCERA: Uterus appears to have been removed. No pelvic mass. OSSEOUS STRUCTURES: Degenerative changes of the spine. Mild old lower thoracic vertebral body compression fracture. This is stable. CT/CT abdomen pelvis wo IV con IMPRESSION: Mild diverticulosis. Question mild wall thickening of the distal colon versus changes due to underdistention. Prominent soft tissue in the anorectal region. Correlation with physical exam recommended. Small amount of air in the bladder. Clinical correlation i.e. has the patient recently catheterized. Differential would include infection and fistula. Large left upper quadrant varices. No cirrhosis or ascites seen. Fleischner guidelines were followed.
[2023-01-05] MEDS: Barium Sulfate Oral (Berry) 450 ML ORAL.SUSP 900 ML PO (10:27)
== END 2023-01-05 08:01 | disposition home or self-care (01) ==
LOC: HO.CT 08:00
PROVIDERS: PCP Emergency Medicine; Visit Provider Emergency Medicine
DX: R10.32 Left lower quadrant pain (principal)
CPT/HCPCS: 74176

== ENCOUNTER 2023-03-13 09:15 | Outpatient (REF) | payer OTHER, SELFPAY ==
--- NOTE | ~2023-03-13 | US_ITS ---
EXAMINATION: US ABDOMEN COMPLETE CLINICAL INFORMATION: Abdominal pain. COMPARISON: CT abdomen and pelvis 01/05/2023. Ultrasound abdomen 09/05/2011. Renal ultrasound 12/21/2009. TECHNIQUE: Real-time imaging of the abdominal viscera. FINDINGS: PANCREAS: Normal. ABDOMINAL AORTA: The proximal, mid, and distal segments are normal in caliber. INFERIOR VENA CAVA: Visualized portions are normal. LIVER: Normal. The liver is normal in size. The liver contour is normal. Parenchymal echogenicity is normal. No focal hepatic lesion. There is no intrahepatic biliary duct dilatation seen. GALLBLADDER: Normal. The gallbladder is physiologically distended without evidence of stones, sludge, polyps, wall thickening or pericholecystic fluid. COMMON BILE DUCT: Normal in caliber measuring 0.8 cm in diameter. RIGHT KIDNEY: Normal. No hydronephrosis. No renal calculi or focal parenchymal lesions. The kidney measures 10.6 cm in maximum dimension. LEFT KIDNEY: Normal. No hydronephrosis. No renal calculi or focal parenchymal lesions. The kidney measures 10.7 cm in maximum dimension. SPLEEN: Normal. The spleen measures 6.0 cm in maximum dimension. FREE FLUID: None. US/US abdomen complete IMPRESSION: Unremarkable examination.
== END 2023-03-13 09:16 | disposition home or self-care (01) ==
LOC: HO.US 09:15
PROVIDERS: PCP Emergency Medicine; Visit Provider Internal Medicine
DX: R10.84 Generalized abdominal pain (principal)
CPT/HCPCS: 76700

== ENCOUNTER 2023-05-17 06:57 | Day surgery (SDC) | payer OTHER, SELFPAY ==
--- NOTE | 2023-05-15 14:57 | P.CONAN_ITS ---
Documented by User: Neisha Arroyo NP 05/15/23 14:59 HPI - Anesthesia Eval Consult details Narrative: 77yo F for Upper Endoscopy and Colonoscopy [facility] Active Problems Active Problems: All Active Problems (Updated 09/08/22 @ 00:01 by Len Fuller) COVID-19 (Acute) COVID-19 (Acute) Delayed gastric emptying (Acute) Orthopedic hardware present (Acute) Lumbar degenerative disc disease (Acute) Low back pain (Acute) COVID-19 (Acute) Pneumonia due to COVID-19 virus (Acute) GERD (gastroesophageal reflux disease) (Acute) Gastroparesis (Acute) Beauchamp's esophagus (Acute) Constipation (Acute) Diabetes mellitus (Acute) Essential hypertension (Acute) Pure hypercholesterolemia (Acute) Past Medical History Medical History (Updated 05/17/23 @ 08:18 by Jodi Witt MD) Pneumonia due to COVID-19 virus COVID-19 History of kidney stones C. difficile diarrhea GERD (gastroesophageal reflux disease) Hyperlipidemia Depression Seizure Asthma Beauchamp's esophagus Diabetes mellitus Essential hypertension Pure hypercholesterolemia Family History Family History Father Medical history unknown Mother Medical history unknown Family/Other Diabetes Hypertension Surgical History Surgical History History of esophagogastroduodenoscopy (EGD) Hx of colonoscopy History of surgery History of bladder surgery S/P ISABEL-BSO (total abdominal hysterectomy and bilateral salpingo-oophorectomy) History of tubal ligation Social History Social History Household Members: None Alcohol intake: never Patient Tobacco Use Status: Never used Tobacco Use of substances other than those prescribed or required for medical reasons: No Are you DNR?: No Advance Directives: No Advance Directives Information Provided: Yes Advance Directives on File: No Current occupational status: disabled Meds Allergies Allergy/AdvReac Type Severity Reaction Status Date / Time Iodinated Contrast Media Allergy Unknown ITCHY Verified 09/07/22 15:34 [IV CONTRAST] lactose [LACTOSE] Allergy Unknown EYES Verified 09/07/22 15:34 SWELLING morphine Allergy Unknown swelling Verified 09/07/22 15:34 oxycodone [Percocet] Allergy Unknown anaphylaxis Verified 09/07/22 15:34 tramadol Allergy Unknown pruritus, Verified 09/07/22 15:34 nausea dulaglutide [Trulicity] AdvReac Unknown vomiting Verified 09/07/22 15:34 oxybutynin AdvReac Unknown dizziness Verified 09/07/22 15:34 latex Allergy Unknown Itching Uncoded 09/07/22 19:50 Exam Exam Date and Time: May 15, 2023 1457 Documented by User: Jodi Witt MD 05/17/23 08:21 PMFSH Active Problems Active Problems: All Active Problems (Updated 05/17/23 @ 07:36 by Jodi Witt MD) Delayed gastric emptying (Acute) Orthopedic hardware present (Acute) Lumbar degenerative disc disease (Acute) Low back pain (Acute) GERD (gastroesophageal reflux disease) (Acute) Gastroparesis (Acute) Beauchamp's esophagus (Acute) Constipation (Acute) Diabetes mellitus (Acute) Essential hypertension (Acute) Pure hypercholesterolemia (Acute) Denies LAUREL Past Medical History Medical History (Updated 05/17/23 @ 08:18 by Jodi Witt MD) Pneumonia due to COVID-19 virus COVID-19 History of kidney stones C. difficile diarrhea GERD (gastroesophageal reflux disease) Hyperlipidemia Depression Seizure Asthma Beauchamp's esophagus Diabetes mellitus Essential hypertension Pure hypercholesterolemia Family History Family History Father Medical history unknown Mother Medical history unknown Family/Other Diabetes Hypertension Family history of problems with anesthesia: No Surgical History Surgical History History of esophagogastroduodenoscopy (EGD) Hx of colonoscopy History of surgery History of bladder surgery S/P ISABEL-BSO (total abdominal hysterectomy and bilateral salpingo-oophorectomy) History of tubal ligation History of Problems with Anesthesia: No Social History Social History Household Members: None Alcohol intake: never Patient Tobacco Use Status: Never used Tobacco Use of substances other than those prescribed or required for medical reasons: No Are you DNR?: No Advance Directives: No Advance Directives Information Provided: Yes Advance Directives on File: No Current occupational status: disabled Meds Allergies Allergy/AdvReac Type Severity Reaction Status Date / Time Iodinated Contrast Media Allergy Unknown ITCHY Verified 09/07/22 15:34 [IV CONTRAST] lactose [LACTOSE] Allergy Unknown EYES Verified 09/07/22 15:34 SWELLING morphine Allergy Unknown swelling Verified 09/07/22 15:34 oxycodone [Percocet] Allergy Unknown anaphylaxis Verified 09/07/22 15:34 tramadol Allergy Unknown pruritus, Verified 09/07/22 15:34 nausea dulaglutide [Trulicity] AdvReac Unknown vomiting Verified 09/07/22 15:34 oxybutynin AdvReac Unknown dizziness Verified 09/07/22 15:34 latex Allergy Unknown Itching Uncoded 09/07/22 19:50 Exam Height,Weight and Vital Signs: Height 5 ft Weight 58.241 kg Vital Signs Temp Pulse Resp BP Pulse Ox O2 Del Method 05/17/23 07:44 97.8 F 84 16 162/81 H 100 Room Air Pertinent Lab Results Pertinent Lab Results: Lab Results 05/17/23 Range/Units 07:40 POC Glucose 164 H (60-115) mg/dL Airway Mallampati Class: III TM Dist: >3cm Neck ROM: Full Partial: Upper Loose/Missing/Broken Teeth: Yes (Missing teeth bottom back. Denies broken, loose teeth) Heart: RRR Lungs: CTAB Assessment and Plan Assessment Anesthesia Assessment: Anesthesia Plan Discussed and Chart Reviewed Final Anesthetic Review Family History of Problems with Anesthesia: No History of Problems with Anesthesia: No NPO: Yes ASA Class: III Final Preanesthetic Review: No Changes in Pt Med Stat, Meds/Allgs Chart Reviewed, Consent Obtained/Reviewed and Anes Risks/Benef Reviewed Patient Risk: Intermediate Procedure Risk: Low Assessment/Block/Sedation in SS: Assess/Block/Sedation-SS Anesthetic Plan Anesthetic Plan: MAC: Disposition: Standard PACU
[2023-05-17 07:35] VITALS: BMI 25.1
[2023-05-17 07:44] VITALS: BP 162/81; PULSE 84; RESP 16; TEMP 36.6; O2SAT 100
[2023-05-17 07:44] LABS: Glucose, Whole Blood 164 mg/dL (60-115)
[2023-05-17 07:53] VITALS: BMI 25.1
[2023-05-17] MEDS: Lactated Ringers 1,000 ML 100 ML IVCONT (08:02)
[2023-05-17 09:45] VITALS: BP 146/75; PULSE 91; RESP 16; TEMP 36.5; O2SAT 100
--- NOTE | 2023-05-17 09:46 | P.BOP_ITS ---
Brief Operative Note Date of Service: 05/17/23 Pre-op diagnosis: GERD, Abnormal CT of colon Post-op diagnosis: other (Colon polyp, Gastritis, GERD) Procedure: EGD with bx, Colonoscopy to the cecum with hot snare polypectomy Surgeon: Pavan Demarco MD Anesthesia: MAC Was an Inside Sales Account Representative used for this Procedure?: No Estimated blood loss (mL): 2.0 Pathology: other (A. Descending duodenum B. Gastric antrum C. EG Junction at 35cm D. Cecal polyp) Condition: stable Disposition: PACU
[2023-05-17 09:58] VITALS: BP 158/91; PULSE 85; RESP 16; TEMP 36.5; O2SAT 100
--- NOTE | 2023-05-17 10:52 | OP_ITS ---
DATE OF SERVICE: 05/17/2023 SURGEON: Pavan Demarco MD INDICATIONS: The patient presents for evaluation of abdominal discomfort, gastroesophageal reflux, and abnormal CT scan of colon. Full consent obtained from her for this, including risks of bleeding and perforation. PREOPERATIVE DIAGNOSIS: POSTOPERATIVE DIAGNOSIS: PROCEDURE PERFORMED: ESTIMATED BLOOD LOSS: COMPLICATIONS: ANESTHESIA: Monitored anesthesia care. ASSISTANTS: SPECIMENS: PREOPERATIVE DIAGNOSES: Abdominal pain, gastroesophageal reflux, and abnormal CT scan of colon. POSTOPERATIVE DIAGNOSES: Abdominal pain, gastroesophageal reflux, and abnormal CT scan of colon, hiatal hernia, reflux esophagitis, gastritis, rule out celiac disease, colon polyp, diverticulosis and internal hemorrhoids. PROCEDURES PERFORMED: Esophagogastroduodenoscopy with biopsies, and colonoscopy to the cecum with hot snare polypectomy x1. DESCRIPTION OF PROCEDURE: The patient was placed in the left lateral decubitus position. The Olympus video gastroscope was passed in the posterior oropharynx and upper esophagus under direct vision. The scope was passed slowly to the distal esophagus. The gastroesophageal junction appeared at 35 cm. There was evidence of some edema, erythema, and some friability. There was no gross evidence of Beauchamp's esophagus nor any lesions. The scope entered the stomach. There was a small hiatal hernia. The scope was advanced to the pylorus and the duodenum was cannulated to the descending portion. The duodenum including the bulb appeared normal without mass or ulceration. Biopsies were obtained in the second and third portions of duodenum. The scope was withdrawn back to the stomach. The gastric antrum had some areas of gastritis with erythema and edema. There was good peristalsis. The scope was retroflexed visualizing the proximal stomach carefully, which appeared normal, without any sign of mass or ulceration. The scope was straightened. Biopsies were obtained from the gastric antrum. The scope was withdrawn back in the esophagus. Biopsies were obtained at the EG junction at 35 cm. Proximal to this, the esophageal mucosa appeared normal. The scope was withdrawn from the patient. She was turned around for the colonoscopy. The digital rectal exam revealed no abnormalities. The Olympus video pediatric colonoscope was entered into the rectum and advanced easily to the cecum. Once in the cecum, I did identify cecal pouch with appendiceal orifice and a normal-appearing ileocecal valve. The entire cecum and ileocecal valve was well visualized. In the cecum was an approximately 12 mm flat, but raised grossly adenomatous polyp, which was removed by hot snare polypectomy and recovered by suction. The polypectomy site appeared clean, without any sign of residual polyp nor bleeding. The scope was then slowly withdrawn assessing all mucosal surfaces carefully. Preparation was excellent. I did not visualize any other polyps, colitis, nor angiodysplasia. There was a moderate amount of sigmoid diverticulosis. In the rectum, scope was retroflexed visualizing prominent internal hemorrhoids, but no other pathology. The rectal mucosa appeared normal. The scope was straightened and withdrawn from the patient. She tolerated both procedures well and was returned to recovery area in stable condition. IMPRESSION: 1. Reflux esophagitis. 2. Hiatal hernia. 3. Gastritis. 4. Rule out celiac disease. 5. Colon polyp. 6. Diverticulosis. 7. Internal hemorrhoids. PLAN: The results of the pathology will be checked. Given her age and these findings, I do not think she will need any further screening colonoscopies. She was advised not to use any aspirin and NSAIDs for at least 1 week. She was advised to continue her daily omeprazole. She will also continue her dicyclomine for irritable bowel syndrome and abdominal discomfort. She will see me as needed. This has been discussed with her significant other. MD KHUSHI Zamora/RUPA / [phone] MTDShelia
== END 2023-05-17 10:33 | disposition home or self-care (01) ==
PROVIDERS: PCP Emergency Medicine; Visit Provider Internal Medicine
PROC: (CPT 43239; principal; 2023-05-17 08:30)
DX: K21.00 Gastro-esophageal reflux disease with esophagitis, without bleeding (principal); K29.70 Gastritis, unspecified, without bleeding; K44.9 Diaphragmatic hernia without obstruction or gangrene; Z12.11 Encounter for screening for malignant neoplasm of colon; D12.0 Benign neoplasm of cecum; K57.30 Diverticulosis of large intestine without perforation or abscess without bleeding; K64.8 Other hemorrhoids; Z86.010 Personal history of colon polyps; K58.9 Irritable bowel syndrome, unspecified; R93.3 Abnormal findings on diagnostic imaging of other parts of digestive tract; E11.9 Type 2 diabetes mellitus without complications; E78.5 Hyperlipidemia, unspecified; J45.909 Unspecified asthma, uncomplicated; G40.909 Epilepsy, unspecified, not intractable, without status epilepticus; Z87.442 Personal history of urinary calculi; Z90.710 Acquired absence of both cervix and uterus; Z79.84 Long term (current) use of oral hypoglycemic drugs; Z79.82 Long term (current) use of aspirin; Z79.899 Other long term (current) drug therapy
CPT/HCPCS: 43239; 45385; 82947; 88305; 88342; J2765

== ENCOUNTER 2023-06-28 09:04 | Emergency (ER) | payer OTHER, SELFPAY ==
--- NOTE | ~2023-06-28 | CT_ITS ---
EXAMINATION: CT ABDOMEN AND PELVIS WITHOUT CONTRAST CLINICAL INFORMATION: Left lower quadrant pain, diarrhea COMPARISON: 01/05/2023. TECHNIQUE: Multidetector volumetric imaging was performed from the superior aspect of the liver through the pubic symphysis. Sagittal and coronal reformatted images were obtained on the technologist's workstation. This CT examination was performed using dose optimization techniques as appropriate, variously including the following: *Automated exposure control *Adjustment of mA and/or kV according to patient size (this includes techniques or standardized protocols for targeted exams where dose is matched to indication/reason for exam; i.e. extremities or head) *Use of iterative reconstruction technique DLP: 417 mGy-cm FINDINGS: LUNG BASES: Calcific granulomas. Small posterior basilar dependent density. LIVER, GALLBLADDER, AND BILIARY TREE: Tiny hypodensity in the liver series 2 image 7 and centrally, too small to characterize. The gallbladder is unremarkable with no evidence of radiopaque gallstones, gallbladder wall thickening, or obvious pericholecystic inflammatory changes. CBD within normal limits for size at 6 mm but possible debris within the distal CBD. PANCREAS: Unremarkable. SPLEEN: Unremarkable. ADRENAL GLANDS: Unremarkable. KIDNEYS AND URETERS: The kidneys are normal in size, shape, and attenuation. No hydronephrosis, hydroureter, or calculi seen. No perinephric stranding. BLADDER: Urinary bladder wall thickening likely related to lack of distention. GASTROINTESTINAL TRACT: Colonic diverticula. No distinct acute appearing inflammatory changes. Distal ileum unremarkable. Appendix within normal limits at 5.5 mm maximal dimension. Small hiatal hernia. No small bowel obstructive process or abnormal omental thickening. Anal region thickening similar to previous evaluation. ABDOMINAL WALL: No significant hernia is appreciated. LYMPH NODES: No new suspicious lymphadenopathy. VASCULAR: Left upper quadrant varices and collateral vasculature. Atherosclerotic changes. PELVIC VISCERA: No suspicious pelvic masses. OSSEOUS STRUCTURES: Facet arthrosis. Spondylitic changes. Wedge compression deformity T11 similar to previous evaluation. CT/CT abdomen pelvis wo IV con IMPRESSION: Possible debris within the distal CBD, with the CBD not appearing distended. MRCP may be helpful toward further clarification. Colonic diverticula without any acute inflammatory changes. Anal region thickening similar to previous evaluation. Digital rectal evaluation may be helpful toward further clarification. Other incidental findings as noted above. Fleischner guidelines were followed.
--- NOTE | ~2023-06-28 | MR_ITS ---
EXAMINATION: MR ABDOMEN WITHOUT CONTRAST CLINICAL INFORMATION: Upper abdominal pain COMPARISON: CT abdomen and pelvis 06/19/1993 TECHNIQUE: MRI of the abdomen without contrast was obtained using routine sequences. Heavily T2 weighted MRCP sequences were also obtained. FINDINGS: LUNG BASES: Unremarkable. ABDOMINAL AND PELVIC WALL: Unremarkable. LIVER AND BILIARY TREE: Common bile duct measures 7 mm which is within normal limits for age. No intrahepatic biliary duct dilatation. No definite intraluminal filling defect to suggest choledocholithiasis however if persistent clinical concern consider correlation with ERCP. GALLBLADDER: No definite intraluminal filling defect to suggest choledocholithiasis however persistent clinical concern consider correlation with ERCP. PANCREAS: Few small 4 mm pancreatic cysts. Pancreatic duct measures 2 mm which is within normal limits. SPLEEN: Spleen is normal in size measuring 6.4 cm in span. ADRENAL GLANDS: Unremarkable. KIDNEYS AND URETERS: Bosniak 1 benign-appearing left upper pole renal cysts. GASTROINTESTINAL TRACT: Unremarkable. VASCULAR: Dilated splenorenal collateral vessels. LYMPH NODES/PERITONEUM: No lymphadenopathy. FREE FLUID: None. OSSEOUS STRUCTURES: Unremarkable. MR/MR MRCP IMPRESSION: 1. Common bile duct measures 7 mm which is within normal limits for age. No intrahepatic biliary duct dilatation. No definite intraluminal filling defect to suggest choledocholithiasis however if persistent clinical concern consider correlation with ERCP. 2. Few small 4 mm pancreatic cysts. Recommend two-year follow-up contrast enhanced MR/MRCP to assess stability. 3. Dilated splenorenal collateral vessels which can be seen in the setting of portal hypertension.
[2023-06-28 09:14] VITALS: BP 161/76; PULSE 95; RESP 18; TEMP 36.3; O2SAT 99; BMI 25.6
--- NOTE | 2023-06-28 09:46 | ED_ITS ---
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 Denies n/v and no fevers. No sick contacts, travel, food exposure or abx in 4 weeks. MD elicited complaint: abdominal pain Pertinent past history: gastritis Onset (ago): day(s) (2) Pain Consistency: constant Location: diffuse Severity: moderate Quality: cramping Radiation: none Migration to: no migration Exacerbating factors: eating and movement Relieving factors: nothing Context: history of similar episodes Associated symptoms: diarrhea Related Data Previous Rx's Medication Instructions Recorded atorvastatin 80 mg tablet 80 mg PO DAILY 90 days #90 tabs 05/13/20 hydrochlorothiazide 12.5 mg tablet 12.5 mg PO DAILY 90 days #90 tabs 05/13/20 multivitamin 1 tab PO DAILY 30 days #30 tabs 05/13/20 pentosan polysulfate sodium 100 mg 100 mg PO TID 30 days #90 caps 05/13/20 capsule (Elmiron) tolterodine 2 mg tablet 2 mg PO BID #56 tabs 05/28/20 azithromycin 500 mg tablet See Rx Instructions PO .COMPLEX #6 07/25/20 (Zithromax TRI-KEYLA) tabs benzonatate 100 mg capsule 100 mg PO TID PRN cough #20 caps 07/25/20 (Tessalon Perles) dexamethasone 6 mg tablet 6 mg PO DAILY 10 days #10 tabs 07/25/20 hyoscyamine sulfate 0.125 mg tablet 0.25 mg (2 x 0.125 mg) PO QID PRN 07/31/20 dyspepsia #10 tabs blood sugar diagnostic (FreeStyle #100 ea 08/29/20 Test strips) pantoprazole 40 mg tablet,delayed 40 mg PO DAILY 90 days #90 tabs 08/29/20 release sumatriptan succinate 50 mg tablet 50 mg PO Q2-4H PRN migraine 08/30/20 headache 30 days #9 tabs ibuprofen 600 mg tablet 600 mg PO Q8H PRN pain #14 tabs 09/03/20 cyclobenzaprine 5 mg tablet 5 mg PO BEDTIME PRN muscle spasm 09/08/20 30 days #30 tabs Carafate 100 mg/mL oral suspension 10 ml PO BID 30 days #600 mL 09/11/20 (sucralfate) lisinopril 30 mg tablet 30 mg PO DAILY #28 tabs 09/17/20 ezetimibe 10 mg tablet (Zetia) 10 mg PO DAILY 90 days #90 tabs 11/04/20 pioglitazone 30 mg tablet 30 mg PO DAILY #90 tabs 11/04/20 fluticasone propionate 44 2 puff PO BID 30 days #31.8 grams 02/13/21 mcg/actuation HFA aerosol inhaler (Flovent HFA) metformin 1,000 mg tablet 1,000 mg PO BID 90 days #180 tabs 03/03/21 cefpodoxime 200 mg tablet 200 mg PO Q12H 10 days #20 tabs 05/04/21 ketorolac 10 mg tablet 10 mg PO QID 5 days #20 tabs 05/04/21 acetaminophen 500 mg tablet 500 mg PO Q6H PRN pain 30 days 07/08/21 (Tylenol Extra Strength) #120 tabs acetaminophen 325 mg tablet 325 mg PO Q6H PRN pain #30 tabs 04/30/22 (Tylenol) metoclopramide HCl 10 mg tablet 10 mg PO QIDACHS nausea and 05/25/22 (Reglan) vomiting #120 tabs sennosides 8.6 mg capsule (senna) 17.2 mg (2 x 8.6 mg) PO BEDTIME 05/25/22 constipation 30 days #60 caps sucralfate 100 mg/mL oral 10 ml PO QID #1,000 mL 05/25/22 suspension (Carafate) ondansetron 4 mg disintegrating 4 mg PO Q8H 3 days #9 tabs 07/11/22 tablet omeprazole 40 mg capsule,delayed 40 mg PO BID 14 days #28 caps 09/07/22 release sucralfate 1 gram tablet (Carafate) 1 g PO TID 30 days #90 tabs 09/07/22 risperidone 0.5 mg tablet 0.5 mg PO DAILY 90 days #90 tabs 10/28/22 (Risperdal) Allergies Allergy/AdvReac Type Severity Reaction Status Date / Time Iodinated Contrast Media Allergy Unknown ITCHY Verified 06/28/23 09:14 [IV CONTRAST] lactose [LACTOSE] Allergy Unknown EYES Verified 06/28/23 09:14 SWELLING morphine Allergy Unknown swelling Verified 06/28/23 09:14 oxycodone [Percocet] Allergy Unknown anaphylaxis Verified 06/28/23 09:14 tramadol Allergy Unknown pruritus, Verified 06/28/23 09:14 nausea dulaglutide [Trulicity] AdvReac Unknown vomiting Verified 06/28/23 09:14 oxybutynin AdvReac Unknown dizziness Verified 06/28/23 09:14 latex Allergy Unknown Itching Uncoded 06/28/23 09:14 Review of Systems Review of Systems Constitutional : No Weight loss, No Fever, No Chills ENT/Mouth : No sore throat, No Rhinorrhea Eyes: No Swelling, No Redness Cardiovascular : No Chest Pain, No SOB, NoEdema Respiratory : No Cough, No Sputum, No Wheezing Gastrointestinal : no Nausea, no Vomiting, positive Diarrhea, positive abdominal Pain, No Hematochezia, No Melena Genitourinary : No Dysuria, No Urinary Frequency, No Hematuria, No Urgency Musculoskeletal : No joint pain, No Myalgias, No Joint Swelling Skin : No Skin Lesions, No rash Neuro : No Weakness, No Numbness, No Dizziness, No Headache Psych : No Anxiety/Panic, No Depression Heme/Lymph: No Bruising, No Lymphadenopathy Endocrine : No Polyuria, No Polydipsia All other systems reviewed and are negative. [facility] Past Medical History Attestation statement: The following information was validated with the patient. Source: old records reviewed Medical History Pneumonia due to COVID-19 virus COVID-19 History of kidney stones C. difficile diarrhea GERD (gastroesophageal reflux disease) Hyperlipidemia Depression Seizure Asthma Beauchamp's esophagus Diabetes mellitus Essential hypertension Pure hypercholesterolemia Surgical History History of esophagogastroduodenoscopy (EGD) Hx of colonoscopy History of surgery History of bladder surgery S/P ISABEL-BSO (total abdominal hysterectomy and bilateral salpingo-oophorectomy) History of tubal ligation Family History Family History Father Medical history unknown Mother Medical history unknown Family/Other Diabetes Hypertension Social History Social History Household Members: None Alcohol intake: never Patient Tobacco Use Status: Never used Tobacco Smoked in Last 30 Days: No Use of substances other than those prescribed or required for medical reasons: No Advance Directives: No Advance Directives Information Provided: Yes Current occupational status: disabled Physical Exam ED Vital Signs: Vital Signs - 24 hr 06/28/23 09:14 06/28/23 09:59 06/28/23 10:02 Temperature 97.3 F 98.3 F 98.3 F Pulse Rate 95 75 75 Respiratory Rate 18 16 16 Blood Pressure 161/76 H 152/68 H 152/68 H Pulse Oximetry 99 98 98 Oxygen Delivery Method Room Air Room Air Room Air 06/28/23 13:11 06/28/23 14:38 Temperature Pulse Rate 64 78 Respiratory Rate 16 16 Blood Pressure 153/63 H 143/71 H Pulse Oximetry 99 98 Oxygen Delivery Method Room Air Room Air BMI result Body Mass Index 25.6 Appearance: Alert. Oriented X3. No acute distress. Eyes: Pupils equal, round and reactive to light. ENT: Pharynx normal. Neck: Normal inspection. Neck supple. CVS: Normal heart rate and rhythm. Pulses normal. Respiratory: No respiratory distress. Breath sounds normal. Abdomen: Soft and moderate diffuse ttp no rebound Skin: Skin warm and dry. Normal skin color. Normal skin turgor. Extremities: No lower extremity edema. No calf ttp Neuro: Oriented X 3. No motor deficit. No sensory deficit. Course Course Course Narrative: will order MRCP given CT scan results has upper abdominal pain though LFTs normal Reevaluation(s) Reevaluation #1: signed out to Dr. Shay pending MRI Medical Decision Making Medical Decision Making MDM Narrative: 78 yo female with PMH of diabetes, gastroparesis, seizures, c diff, HTN, HLD, chronic back pain here with c/o 2 days of diarrhea and abdominal pain at this time basic labs, IVF, IV toradol, CT scan for colitis, stool studies. Differential Diagnosis Differential Diagnoses: The differential diagnosis associated with the presentation includes gastritis, pancreatitis, enteritis, colitis Admission/Observation Consideration of admission/observation: Escalation of care including admission/observation considered Lab Data MDM Lab Attestation statement: I reviewed the patient's lab results. 06/28/23 10:08 06/28/23 10:08 Labs: Lab Results 06/28/23 06/28/23 Range/Units 10:08 11:32 WBC 5.5 (4.8-10.8) X10*3/uL RBC 4.10 L (4.20-5.50) X10*6/uL Hgb 12.2 (12.0-16.0) g/dl Hct 36.9 L (37.0-47.0) % MCV 90.0 (80.0-98.0) fL MCH 29.8 (27.0-33.0) pg MCHC 33.1 (31.0-35.0) g/dl RDW 14.3 (11.0-16.0) % Plt Count 187 (160-400) X10*3/uL MPV 10.2 (9.4-12.3) fL Immature Gran % (Auto) 0.2 (0.0-0.4) % Neut % (Auto) 46.7 (45-73) % Lymph % (Auto) 41.0 H (20-40) % [place] % (Auto) 8.0 (2-11) % Eos % (Auto) 3.4 (0-4) % Baso % (Auto) 0.7 (0-2) % Lymph # (Auto) 2.3 (1.2-4.9) X10*3/uL [place] # (Auto) 0.4 (0.1-1.2) X10*3/uL Eos # (Auto) 0.2 (0.0-0.4) X10*3/uL Baso # (Auto) 0.0 (0.0-0.2) X10*3/uL Abs Immat Gran (auto) 0.01 (0.00-0.03) X10*3/uL Absolute Neuts (auto) 2.6 (2.0-8.3) x10*3/uL Absolute Nucleated RBC 0.000 (0.0-0.012) X10*3/uL Nucleated RBC % (auto) 0.0 (0.0-0.2) /100WBC Sodium 140 (135-145) mmol/L Potassium 3.9 (3.3-5.1) mmol/L Chloride 104 (96-108) mmol/L Carbon Dioxide 30 H (22-29) mmol/L Anion Gap 10 L (12-20) BUN 11 (9-16) mg/dL Creatinine 0.68 (0.5-1.4) mg/dL Estim Creat Clear Calc 59.7 Estimated GFR > 60 Random Glucose 172 H (60-115) mg/dL Calcium 9.4 D (8.4-10.2) mg/dL Magnesium 1.5 L (1.6-2.6) mg/dL Total Bilirubin 0.5 (0.0-1.0) mg/dL Direct Bilirubin 0.2 (0.0-0.5) mg/dL AST 20 (5-31) U/L ALT 10 (0-31) U/L Alkaline Phosphatase 70 (39-117) U/L Total Protein 6.6 (6.5-8.0) g/dL Albumin 3.9 (3.5-5.0) g/dL Lipase 21 (8-78) U/L Urine Color Yellow Urine Appearance Clear Urine pH 7.0 (5.0-9.0) Ur Specific [place] <= 1.005 (1.005-1.025) Urine Protein Negative (Neg-Trace) mg/dL Urine Glucose (UA) Negative (Negative) mg/dL Urine Ketones Negative (Negative) mg/dL Urine Blood Negative (Negative) Urine Nitrite Negative (Negative) Ur Leukocyte Esterase Negative (Negative) Independent Interpretation I performed an independent interpretation of an: CT Scan (CBD sludge) Radiology Impression Discussion of test interpretation with radiology: I have reviewed the radiologist's reading. Independent Historian Clinical information obtained from an independent historian. History obtained from or confirmed by: Other (family) External Record Review External record reviewed: Inpatient record Medications Administered Generic Name Dose Route Start Last Admin Trade Name Freq PRN Reason Stop Dose Admin Sodium Chloride 1,000 mls @ 100 mls/hr 06/28/23 11:45 06/28/23 12:00 Ns IVCONT 100 mls/hr .Q10H MICAELA Administration Discontinued Medications Generic Name Dose Route Start Last Admin Trade Name Freq PRN Reason Stop Dose Admin Sodium Chloride 500 mls @ 500 mls/hr 06/28/23 10:00 06/28/23 12:00 Ns IV 06/28/23 10:59 Infused .Q1H MICAELA Infusion Magnesium Sulfate 2 gm in 50 mls @ 25 mls/hr 06/28/23 10:37 06/28/23 13:15 Magnesium Sulfate/H2o IV 06/28/23 12:36 Infused ONCE ONE Infusion Ketorolac Tromethamine 15 mg 06/28/23 09:58 06/28/23 10:13 Ketorolac Tromethamine 15 Mg/Ml Vial IVPUSH 06/28/23 09:59 15 mg ONCE ONE Administration Ondansetron HCl 4 mg 06/28/23 09:57 06/28/23 10:14 Ondansetron Hcl 4 Mg/2 Ml Vial IVPUSH 06/28/23 09:58 4 mg ONCE ONE Administration Discharge Plan Discharge Clinical Impression: Abdominal pain Qualifiers: Abdominal location: epigastric Qualified Code(s): R10.13 - Epigastric pain Diarrhea Qualifiers: Diarrhea type: unspecified type Qualified Code(s): R19.7 - Diarrhea, unspecified Patient Disposition: Still a Patient Prescriptions: No Action atorvastatin 80 mg tablet 80 mg PO DAILY 90 Days Qty: 90 3RF hydrochlorothiazide 12.5 mg tablet 12.5 mg PO DAILY 90 Days Qty: 90 3RF multivitamin Tablet 1 tab PO DAILY 30 Days Qty: 30 11RF Elmiron 100 mg capsule 100 mg PO TID 30 Days Qty: 90 11RF tolterodine 2 mg tablet 2 mg PO BID Qty: 56 11RF (DME) FreeStyle Test Strip See Rx Instructions .ROUTE .MEDSUPPLY Qty: 100 11RF Rx Instructions: Use 1 test strip twice a day pantoprazole 40 mg tablet,delayed release (DR/EC) 40 mg PO DAILY 90 Days Qty: 90 3RF sumatriptan succinate 50 mg tablet 50 mg PO Q2-4H PRN (Reason: migraine headache) 30 Days Qty: 9 6RF Rx Instructions: do not exceed 4 doses per 24 hrs cyclobenzaprine 5 mg tablet 5 mg PO BEDTIME PRN (Reason: muscle spasm) 30 Days Qty: 30 0RF lisinopril 30 mg tablet 30 mg PO DAILY Qty: 28 6RF ezetimibe [Zetia] 10 mg tablet 10 mg PO DAILY 90 Days Qty: 90 3RF pioglitazone 30 mg tablet 30 mg PO DAILY Qty: 90 3RF Flovent HFA 44 mcg/actuation HFA aerosol inhaler 2 puff PO BID 30 Days Qty: 31.8 6RF metformin 1,000 mg tablet 1,000 mg PO BID 90 Days Qty: 180 1RF risperidone [Risperdal] 0.5 mg tablet 0.5 mg PO DAILY 90 Days Qty: 90 2RF ibuprofen 600 mg tablet 600 mg PO Q8H PRN (Reason: pain) Qty: 14 0RF dexamethasone 6 mg tablet 6 mg PO DAILY 10 Days Qty: 10 0RF azithromycin [Zithromax TRI-KEYLA] 500 mg tablet See Rx Instructions .ROUTE .COMPLEX Qty: 6 0RF Rx Instructions: take 500 mg today (day 1), then 250 mg for 4 days (days 2-5) benzonatate [Tessalon Perles] 100 mg capsule 100 mg PO TID PRN (Reason: cough) Qty: 20 0RF hyoscyamine sulfate 0.125 mg tablet 0.25 mg PO QID PRN (Reason: dyspepsia) Qty: 10 0RF acetaminophen [Tylenol] 325 mg tablet 325 mg PO Q6H PRN (Reason: pain) Qty: 30 0RF ondansetron 4 mg tablet,disintegrating 4 mg PO Q8H 3 Days Qty: 9 0RF cefpodoxime 200 mg tablet 200 mg PO Q12H 10 Days Qty: 20 0RF Rx Instructions: must administer with a meal/food ketorolac 10 mg tablet 10 mg PO QID 5 Days Qty: 20 0RF omeprazole 40 mg capsule,delayed release(DR/EC) 40 mg PO BID 14 Days Qty: 28 0RF sucralfate [Carafate] 1 gram tablet 1 g PO TID 30 Days Qty: 90 2RF sucralfate [Carafate] 100 mg/mL suspension 10 ml PO BID 30 Days Qty: 600 4RF Rx Instructions: 10mL at noon and bedtime on an empty stomach metoclopramide HCl [Reglan] 10 mg tablet 10 mg PO QIDACHS Qty: 120 6RF Hold Instructions: Doctor's Order senna 8.6 mg capsule 17.2 mg PO BEDTIME 30 Days Qty: 60 3RF sucralfate [Carafate] 100 mg/mL suspension 10 ml PO QID Qty: 1000 6RF Rx Instructions: swish in mouth and swallow; use after food/drink acetaminophen [Tylenol Extra Strength] 500 mg tablet 500 mg PO Q6H PRN (Reason: pain) 30 Days Qty: 120 1RF
[2023-06-28 09:59] VITALS: BP 152/68; PULSE 75; RESP 16; TEMP 36.8; O2SAT 98
[2023-06-28 10:02] VITALS: BP 152/68; PULSE 75; RESP 16; TEMP 36.8; O2SAT 98
[2023-06-28] MEDS: Ketorolac Tromethamine 15 MG/ML VIAL IVPUSH (10:13)
[2023-06-28 10:14] LABS: MANUAL DIFF FLAG NO
[2023-06-28] MEDS: 0.9 % Sodium Chloride 500 ML IV (10:14)
[2023-06-28] MEDS: ondansetron HCL 4 MG/2 ML VIAL IVPUSH (10:14)
[2023-06-28 10:15] LABS: Basophils Percent Auto 0.7 % (0-2); Eosinophils Absolute Auto 0.2 X10*3/uL (0.0-0.4); Eosinophils Percent Auto 3.4 % (0-4); Hematocrit 36.9 % (37.0-47.0); Hemoglobin 12.2 g/dl (12.0-16.0); Imm Gran Abs Auto 0.01 X10*3/uL (0.00-0.03); Imm Gran Pct Auto 0.2 % (0.0-0.4); Lymphocytes Absolute Auto 2.3 X10*3/uL (1.2-4.9); Mean Corpuscular HGB Conc 33.1 g/dl (31.0-35.0); Mean Corpuscular Hemoglobin 29.8 pg (27.0-33.0); Mean Platelet Volume 10.2 fL (9.4-12.3); Monocytes Absolute Auto 0.4 X10*3/uL (0.1-1.2); Neutrophils Absolute Auto 2.6 x10*3/uL (2.0-8.3); Neutrophils Percent Auto 46.7 % (45-73); Platelet Count 187 X10*3/uL (160-400); Red Cell Distribution Width 14.3 % (11.0-16.0); White Blood Count 5.5 X10*3/uL (4.8-10.8)
[2023-06-28 10:35] LABS: Alanine Aminotransferase 10 U/L (0-31); Albumin Level 3.9 g/dL (3.5-5.0); Alkaline Phosphatase 70 U/L (39-117); Anion Gap 10 (12-20); Aspartate Amino Transferase 20 U/L (5-31); Bilirubin Direct 0.2 mg/dL (0.0-0.5); Bilirubin Total 0.5 mg/dL (0.0-1.0); Blood Urea Nitrogen 11 mg/dL (9-16); Calcium 9.4 mg/dL (8.4-10.2); Carbon Dioxide 30 mmol/L (22-29); Chloride 104 mmol/L (96-108); Creatinine Clr Calc Pharmacy 59.7; Estimated Glomerular Filt Rate > 60; Glucose Random 172 mg/dL (60-115); Lipase 21 U/L (8-78); Magnesium 1.5 mg/dL (1.6-2.6); Potassium 3.9 mmol/L (3.3-5.1); Sodium 140 mmol/L (135-145); Total Protein 6.6 g/dL (6.5-8.0)
[2023-06-28] MEDS: Magnesium Sulfate/H2O 2 GM/50 ML PIGGYBACK IV (11:05)
[2023-06-28 11:41] LABS: Appearance Urine Clear; Color Urine Yellow; Glucose Urine UA Negative (Negative); Leukocyte Esterase Urine Negative (Negative); Nitrite Urine Negative (Negative); Specific Gravity - Urine <= 1.005 (1.005-1.025); Urine Blood Negative (Negative); Urine Ketones Negative (Negative); Urine Protein Negative (Neg-Trace)
--- NOTE | 2023-06-28 11:41 | PC.NURSE ---
MRI FORM COMPLETED AND SCANNED OVER TO MRI. PT STATES LAST MEAL WAS YESTERDAY AT 4PM, LAST BEVERAGE WAS THIS AM AT 0800.
[2023-06-28] MEDS: 0.9 % Sodium Chloride 1,000 ML 100 ML IVCONT (12:00)
[2023-06-28 13:11] VITALS: BP 153/63; PULSE 64; RESP 16; O2SAT 99
[2023-06-28 14:38] VITALS: BP 143/71; PULSE 78; RESP 16; O2SAT 98
[2023-06-28 19:01] VITALS: BP 140/62; PULSE 78; RESP 16; TEMP 36.6; O2SAT 98
== END 2023-06-28 19:03 | disposition home or self-care (01) ==
PROVIDERS: Emergency Provider Emergency Medicine; PCP Internal Medicine
DX: R10.13 Epigastric pain (principal); R10.32 Left lower quadrant pain; R19.7 Diarrhea, unspecified; M54.50 Low back pain, unspecified; Z79.899 Other long term (current) drug therapy
CPT/HCPCS: 36415; 74176; 74181; 80048; 80076; 81003; 83690; 83735; 85025; 96361; 96365; 96375; 99285; J1885; J2405; J3475

== ENCOUNTER 2023-07-01 08:36 | Emergency (ER) | payer OTHER, SELFPAY ==
[2023-07-01 08:44] VITALS: BP 140/71; PULSE 78; RESP 20; TEMP 37.2; O2SAT 98; BMI 26.6
[2023-07-01 08:58] LABS: MANUAL DIFF FLAG NO
[2023-07-01 09:26] LABS: Alanine Aminotransferase 11 U/L (0-31); Albumin Level 3.9 g/dL (3.5-5.0); Alkaline Phosphatase 66 U/L (39-117); Anion Gap 11 (12-20); Aspartate Amino Transferase 20 U/L (5-31); Bilirubin Direct 0.2 mg/dL (0.0-0.5); Bilirubin Total 0.5 mg/dL (0.0-1.0); Blood Urea Nitrogen 17 mg/dL (9-16); Calcium 9.4 mg/dL (8.4-10.2); Carbon Dioxide 27 mmol/L (22-29); Chloride 107 mmol/L (96-108); Creatinine Clr Calc Pharmacy 44.8; Estimated Glomerular Filt Rate > 60; Glucose Random 171 mg/dL (60-115); Lipase 15 U/L (8-78); Sodium 141 mmol/L (135-145); Total Protein 6.6 g/dL (6.5-8.0)
[2023-07-01 10:39] LABS: Basophils Absolute Auto 0.1 X10*3/uL (0.0-0.2); Basophils Percent Auto 0.9 % (0-2); Eosinophils Absolute Auto 0.2 X10*3/uL (0.0-0.4); Eosinophils Percent Auto 3.9 % (0-4); Hematocrit 36.7 % (37.0-47.0); Imm Gran Abs Auto 0.01 X10*3/uL (0.00-0.03); Imm Gran Pct Auto 0.2 % (0.0-0.4); Lymphocytes Absolute Auto 2.3 X10*3/uL (1.2-4.9); Lymphocytes Percent Auto 39.8 % (20-40); Mean Corpuscular HGB Conc 32.7 g/dl (31.0-35.0); Mean Corpuscular Hemoglobin 29.8 pg (27.0-33.0); Mean Corpuscular Volume 91.1 fL (80.0-98.0); Mean Platelet Volume 11.1 fL (9.4-12.3); Monocytes Absolute Auto 0.4 X10*3/uL (0.1-1.2); Monocytes Percent Auto 7.4 % (2-11); Neutrophils Absolute Auto 2.7 x10*3/uL (2.0-8.3); Neutrophils Percent Auto 47.8 % (45-73); Platelet Count 214 X10*3/uL (160-400); Red Blood Count 4.03 X10*6/uL (4.20-5.50); Red Cell Distribution Width 14.9 % (11.0-16.0); White Blood Count 5.7 X10*3/uL (4.8-10.8)
[2023-07-01 10:45] VITALS: BP 150/76; PULSE 82; RESP 18; O2SAT 98
[2023-07-01 11:00] LABS: Appearance Urine Clear; Color Urine Yellow; Glucose Urine UA Negative (Negative); Leukocyte Esterase Urine Negative (Negative); Nitrite Urine Negative (Negative); Specific Gravity - Urine 1.015 (1.005-1.025); Urine Blood Negative (Negative); Urine Ketones Negative (Negative); Urine Protein Trace mg/dL (Neg-Trace)
--- NOTE | 2023-07-01 11:06 | ED.ABDPAIN ---
HPI - Abdominal Pain General Chief Complaint: Abdominal Pain Stated Complaint: abd pain/ seen recently Time Seen by Provider: 07/01/23 10:47 Source: patient Mode of arrival: ambulatory Limitations: no limitations History of Present Illness HPI narrative: This is a 78 years old female presented to the emergency department complaining of abdominal pain. Patient has history of diabetes essential hypertension, gastroparesis chronic lower back pain. She was evaluated in the emergency department 2 days ago, CT scan of the abdomen and pelvis was essentially unremarkable she also had an MRCP which was normal. 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 MD elicited complaint: abdominal pain Onset (ago): day(s) (2) Pain Consistency: constant Location: epigastric Severity: moderate Radiation: none Migration to: no migration Exacerbating factors: nothing Relieving factors: nothing Related Data Previous Rx's Medication Instructions Recorded atorvastatin 80 mg tablet 80 mg PO DAILY 90 days #90 tabs 05/13/20 hydrochlorothiazide 12.5 mg tablet 12.5 mg PO DAILY 90 days #90 tabs 05/13/20 multivitamin 1 tab PO DAILY 30 days #30 tabs 05/13/20 pentosan polysulfate sodium 100 mg 100 mg PO TID 30 days #90 caps 05/13/20 capsule (Elmiron) tolterodine 2 mg tablet 2 mg PO BID #56 tabs 05/28/20 azithromycin 500 mg tablet See Rx Instructions PO .COMPLEX #6 07/25/20 (Zithromax TRI-KEYLA) tabs benzonatate 100 mg capsule 100 mg PO TID PRN cough #20 caps 07/25/20 (Tessalon Perles) dexamethasone 6 mg tablet 6 mg PO DAILY 10 days #10 tabs 07/25/20 hyoscyamine sulfate 0.125 mg tablet 0.25 mg (2 x 0.125 mg) PO QID PRN 07/31/20 dyspepsia #10 tabs blood sugar diagnostic (FreeStyle #100 ea 08/29/20 Test strips) pantoprazole 40 mg tablet,delayed 40 mg PO DAILY 90 days #90 tabs 08/29/20 release sumatriptan succinate 50 mg tablet 50 mg PO Q2-4H PRN migraine 08/30/20 headache 30 days #9 tabs ibuprofen 600 mg tablet 600 mg PO Q8H PRN pain #14 tabs 09/03/20 cyclobenzaprine 5 mg tablet 5 mg PO BEDTIME PRN muscle spasm 09/08/20 30 days #30 tabs Carafate 100 mg/mL oral suspension 10 ml PO BID 30 days #600 mL 09/11/20 (sucralfate) lisinopril 30 mg tablet 30 mg PO DAILY #28 tabs 09/17/20 ezetimibe 10 mg tablet (Zetia) 10 mg PO DAILY 90 days #90 tabs 11/04/20 pioglitazone 30 mg tablet 30 mg PO DAILY #90 tabs 11/04/20 fluticasone propionate 44 2 puff PO BID 30 days #31.8 grams 02/13/21 mcg/actuation HFA aerosol inhaler (Flovent HFA) metformin 1,000 mg tablet 1,000 mg PO BID 90 days #180 tabs 03/03/21 cefpodoxime 200 mg tablet 200 mg PO Q12H 10 days #20 tabs 05/04/21 ketorolac 10 mg tablet 10 mg PO QID 5 days #20 tabs 05/04/21 acetaminophen 500 mg tablet 500 mg PO Q6H PRN pain 30 days 07/08/21 (Tylenol Extra Strength) #120 tabs acetaminophen 325 mg tablet 325 mg PO Q6H PRN pain #30 tabs 04/30/22 (Tylenol) metoclopramide HCl 10 mg tablet 10 mg PO QIDACHS nausea and 05/25/22 (Reglan) vomiting #120 tabs sennosides 8.6 mg capsule (senna) 17.2 mg (2 x 8.6 mg) PO BEDTIME 05/25/22 constipation 30 days #60 caps sucralfate 100 mg/mL oral 10 ml PO QID #1,000 mL 05/25/22 suspension (Carafate) ondansetron 4 mg disintegrating 4 mg PO Q8H 3 days #9 tabs 07/11/22 tablet omeprazole 40 mg capsule,delayed 40 mg PO BID 14 days #28 caps 09/07/22 release sucralfate 1 gram tablet (Carafate) 1 g PO TID 30 days #90 tabs 09/07/22 risperidone 0.5 mg tablet 0.5 mg PO DAILY 90 days #90 tabs 10/28/22 (Risperdal) ketorolac 10 mg tablet 10 mg PO TID PRN pain #10 tabs 06/28/23 loperamide 2 mg capsule 2 mg PO Q4H PRN loose stool #14 06/28/23 caps tramadol 50 mg tablet 50 mg PO BID PRN pain #12 tabs 07/01/23 Allergies Allergy/AdvReac Type Severity Reaction Status Date / Time Iodinated Contrast Media Allergy Unknown ITCHY Verified 07/01/23 08:47 [IV CONTRAST] lactose [LACTOSE] Allergy Unknown EYES Verified 07/01/23 08:47 SWELLING morphine Allergy Unknown swelling Verified 07/01/23 08:47 oxycodone [Percocet] Allergy Unknown anaphylaxis Verified 07/01/23 08:47 tramadol Allergy Unknown pruritus, Verified 07/01/23 08:47 nausea dulaglutide [Trulicity] AdvReac Unknown vomiting Verified 07/01/23 08:47 oxybutynin AdvReac Unknown dizziness Verified 07/01/23 08:47 latex Allergy Unknown Itching Uncoded 06/28/23 09:14 Review of Systems Constitutional: Reports no additional constitutional complaints Cardiovascular: Reports no additional cardiovascular complaints Gastrointestinal: Reports abdominal pain PMFSH Past Medical History Medical History Pneumonia due to COVID-19 virus COVID-19 History of kidney stones C. difficile diarrhea GERD (gastroesophageal reflux disease) Hyperlipidemia Depression Seizure Asthma Beauchamp's esophagus Diabetes mellitus Essential hypertension Pure hypercholesterolemia Surgical History History of esophagogastroduodenoscopy (EGD) Hx of colonoscopy History of surgery History of bladder surgery S/P ISABEL-BSO (total abdominal hysterectomy and bilateral salpingo-oophorectomy) History of tubal ligation Family History Family History Father Medical history unknown Mother Medical history unknown Family/Other Diabetes Hypertension Social History Social History Household Members: None Alcohol intake: never Patient Tobacco Use Status: Never used Tobacco Smoked in Last 30 Days: No Use of substances other than those prescribed or required for medical reasons: No Advance Directives: No Current occupational status: disabled Physical Exam ED Vital Signs: Vital Signs - 24 hr 07/01/23 08:44 07/01/23 10:45 07/01/23 12:36 Temperature 98.9 F Pulse Rate 78 82 82 Respiratory Rate 20 18 15 Blood Pressure 140/71 H 150/76 H 123/65 Pulse Oximetry 98 98 98 Oxygen Delivery Method Room Air Room Air Room Air BMI result Body Mass Index 26.6 Const General: cooperative Nutritional Appearance: average body habitus Orientation/consciousness: patient oriented x3 Limitations: no limitations HENMT Head: Yes normal to inspection Ears: hearing grossly normal bilaterally Face and sinus: Yes normal facial exam Neck Neck: Yes normal visual inspection Chest Chest palpation & inspection: normal inspection of the chest Resp Effort & Inspection: normal respiratory effort Auscultation: clear to auscultation bilaterally Cardio Jugular venous distension: no JVD Rate: regular rate Rhythm: regular rhythm GI Inspection: Yes normal to inspection Palpation (GI): Soft to palpation Skin General skin exam: no rashes or lesions noted, elasticity normal and turgor normal Lesions: no lesions Rashes: no rashes Wounds: no wounds Neuro General: patient oriented x3 Cranial nerves: Yes CN's II-XII intact bilaterally Cognition (Neuro): normal cognition Gait exam (Neuro): Normal gait present Extrem General: Yes normal to inspection and Yes full ROM Right upper extremity: normal to inspection Left upper extremity: normal to inspection Course Reevaluation(s) Reevaluation #1: Asyntomatic Time: 13:50 Medical Decision Making Medical Decision Making [facility] Narrative: Patient presented with abdominal pain she had full evaluation 2 days ago will check labs provide analgesia I do not think we need to do another CT scan she just had one 2 days ago 1:50 PM he is feeling better at this time a anticipate discharge , I do not think again we need to do another CT she had a CT 2 days ago the yield would be low Differential Diagnosis Differential Diagnoses: The differential diagnosis associated with the presentation includes PUD/gastritis/GERD Lab Data MDM Lab Attestation statement: I reviewed the patient's lab results. 07/01/23 08:55 07/01/23 08:55 Labs: Lab Results 07/01/23 07/01/23 Range/Units 08:55 10:48 WBC 5.7 (4.8-10.8) X10*3/uL RBC 4.03 L (4.20-5.50) X10*6/uL Hgb 12.0 (12.0-16.0) g/dl Hct 36.7 L (37.0-47.0) % MCV 91.1 (80.0-98.0) fL MCH 29.8 (27.0-33.0) pg MCHC 32.7 (31.0-35.0) g/dl RDW 14.9 (11.0-16.0) % Plt Count 214 (160-400) X10*3/uL MPV 11.1 (9.4-12.3) fL Immature Gran % (Auto) 0.2 (0.0-0.4) % Neut % (Auto) 47.8 (45-73) % Lymph % (Auto) 39.8 (20-40) % [place] % (Auto) 7.4 (2-11) % Eos % (Auto) 3.9 (0-4) % Baso % (Auto) 0.9 (0-2) % Lymph # (Auto) 2.3 (1.2-4.9) X10*3/uL [place] # (Auto) 0.4 (0.1-1.2) X10*3/uL Eos # (Auto) 0.2 (0.0-0.4) X10*3/uL Baso # (Auto) 0.1 (0.0-0.2) X10*3/uL Abs Immat Gran (auto) 0.01 (0.00-0.03) X10*3/uL Absolute Neuts (auto) 2.7 (2.0-8.3) x10*3/uL Absolute Nucleated RBC 0.000 (0.0-0.012) X10*3/uL Nucleated RBC % (auto) 0.0 (0.0-0.2) /100WBC Sodium 141 (135-145) mmol/L Potassium 4.0 (3.3-5.1) mmol/L Chloride 107 (96-108) mmol/L Carbon Dioxide 27 (22-29) mmol/L Anion Gap 11 L (12-20) BUN 17 H (9-16) mg/dL Creatinine 0.85 (0.5-1.4) mg/dL Estim Creat Clear Calc 44.8 Estimated GFR > 60 Random Glucose 171 H (60-115) mg/dL Calcium 9.4 (8.4-10.2) mg/dL Total Bilirubin 0.5 (0.0-1.0) mg/dL Direct Bilirubin 0.2 (0.0-0.5) mg/dL AST 20 (5-31) U/L ALT 11 (0-31) U/L Alkaline Phosphatase 66 (39-117) U/L Total Protein 6.6 (6.5-8.0) g/dL Albumin 3.9 (3.5-5.0) g/dL Lipase 15 (8-78) U/L Urine Color Yellow Urine Appearance Clear Urine pH 7.0 (5.0-9.0) Ur Specific [place] 1.015 (1.005-1.025) Urine Protein Trace (Neg-Trace) mg/dL Urine Glucose (UA) Negative (Negative) mg/dL Urine Ketones Negative (Negative) mg/dL Urine Blood Negative (Negative) Urine Nitrite Negative (Negative) Ur Leukocyte Esterase Negative (Negative) Independent Historian Clinical information obtained from an independent historian. 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 tomorrow return if you worse Prescriptions: New tramadol 50 mg tablet 50 mg PO BID PRN (Reason: pain) Qty: 12 0RF No Action atorvastatin 80 mg tablet 80 mg PO DAILY 90 Days Qty: 90 3RF hydrochlorothiazide 12.5 mg tablet 12.5 mg PO DAILY 90 Days Qty: 90 3RF multivitamin Tablet 1 tab PO DAILY 30 Days Qty: 30 11RF Elmiron 100 mg capsule 100 mg PO TID 30 Days Qty: 90 11RF tolterodine 2 mg tablet 2 mg PO BID Qty: 56 11RF (DME) FreeStyle Test Strip See Rx Instructions .ROUTE .MEDSUPPLY Qty: 100 11RF Rx Instructions: Use 1 test strip twice a day pantoprazole 40 mg tablet,delayed release (DR/EC) 40 mg PO DAILY 90 Days Qty: 90 3RF sumatriptan succinate 50 mg tablet 50 mg PO Q2-4H PRN (Reason: migraine headache) 30 Days Qty: 9 6RF Rx Instructions: do not exceed 4 doses per 24 hrs cyclobenzaprine 5 mg tablet 5 mg PO BEDTIME PRN (Reason: muscle spasm) 30 Days Qty: 30 0RF lisinopril 30 mg tablet 30 mg PO DAILY Qty: 28 6RF ezetimibe [Zetia] 10 mg tablet 10 mg PO DAILY 90 Days Qty: 90 3RF pioglitazone 30 mg tablet 30 mg PO DAILY Qty: 90 3RF Flovent HFA 44 mcg/actuation HFA aerosol inhaler 2 puff PO BID 30 Days Qty: 31.8 6RF metformin 1,000 mg tablet 1,000 mg PO BID 90 Days Qty: 180 1RF risperidone [Risperdal] 0.5 mg tablet 0.5 mg PO DAILY 90 Days Qty: 90 2RF ibuprofen 600 mg tablet 600 mg PO Q8H PRN (Reason: pain) Qty: 14 0RF dexamethasone 6 mg tablet 6 mg PO DAILY 10 Days Qty: 10 0RF azithromycin [Zithromax TRI-KEYLA] 500 mg tablet See Rx Instructions .ROUTE .COMPLEX Qty: 6 0RF Rx Instructions: take 500 mg today (day 1), then 250 mg for 4 days (days 2-5) benzonatate [Tessalon Perles] 100 mg capsule 100 mg PO TID PRN (Reason: cough) Qty: 20 0RF hyoscyamine sulfate 0.125 mg tablet 0.25 mg PO QID PRN (Reason: dyspepsia) Qty: 10 0RF acetaminophen [Tylenol] 325 mg tablet 325 mg PO Q6H PRN (Reason: pain) Qty: 30 0RF ondansetron 4 mg tablet,disintegrating 4 mg PO Q8H 3 Days Qty: 9 0RF cefpodoxime 200 mg tablet 200 mg PO Q12H 10 Days Qty: 20 0RF Rx Instructions: must administer with a meal/food ketorolac 10 mg tablet 10 mg PO QID 5 Days Qty: 20 0RF omeprazole 40 mg capsule,delayed release(DR/EC) 40 mg PO BID 14 Days Qty: 28 0RF sucralfate [Carafate] 1 gram tablet 1 g PO TID 30 Days Qty: 90 2RF ketorolac 10 mg tablet 10 mg PO TID PRN (Reason: pain) Qty: 10 0RF loperamide 2 mg capsule 2 mg PO Q4H PRN (Reason: loose stool) Qty: 14 0RF Rx Instructions: administer after each loose stool until symptoms controlled; do not exceed 8 mg per 24 hrs sucralfate [Carafate] 100 mg/mL suspension 10 ml PO BID 30 Days Qty: 600 4RF Rx Instructions: 10mL at noon and bedtime on an empty stomach metoclopramide HCl [Reglan] 10 mg tablet 10 mg PO QIDACHS Qty: 120 6RF Hold Instructions: Doctor's Order senna 8.6 mg capsule 17.2 mg PO BEDTIME 30 Days Qty: 60 3RF sucralfate [Carafate] 100 mg/mL suspension 10 ml PO QID Qty: 1000 6RF Rx Instructions: swish in mouth and swallow; use after food/drink acetaminophen [Tylenol Extra Strength] 500 mg tablet 500 mg PO Q6H PRN (Reason: pain) 30 Days Qty: 120 1RF Interventions: ED Discharge Assessment Last Done: 07/01/23 14:00 Discharge Date/Time: 07/01/23 14:00
[2023-07-01] MEDS: traMADoL HCL 50 MG TABLET PO (11:11)
--- NOTE | 2023-07-01 12:17 | PC.NURSE ---
pt reports some relief from tramadol. 12/07 pain after
[2023-07-01 12:36] VITALS: BP 123/65; PULSE 82; RESP 15; O2SAT 98
--- NOTE | 2023-07-01 13:40 | ED.ABDPAIN ---
HPI - Abdominal Pain General Chief Complaint: Abdominal Pain Stated Complaint: abd pain/ seen recently Time Seen by Provider: 07/01/23 10:47 Source: patient Mode of arrival: ambulatory Limitations: no limitations History of Present Illness HPI narrative: 78 years old presented to the emergency department complaining of abdominal pain he was seen few days ago in the ED she had a CT scan and MRCP done workup was negative. She has also history of the gastric emptying DJD lower back pain constipation diabetes essential hypertension MD elicited complaint: abdominal pain Onset (ago): day(s) (2) Pain Consistency: constant Location: epigastric and periumbilical Severity: moderate Migration to: no migration Exacerbating factors: nothing Relieving factors: nothing Related Data Previous Rx's Medication Instructions Recorded atorvastatin 80 mg tablet 80 mg PO DAILY 90 days #90 tabs 05/13/20 hydrochlorothiazide 12.5 mg tablet 12.5 mg PO DAILY 90 days #90 tabs 05/13/20 multivitamin 1 tab PO DAILY 30 days #30 tabs 05/13/20 pentosan polysulfate sodium 100 mg 100 mg PO TID 30 days #90 caps 05/13/20 capsule (Elmiron) tolterodine 2 mg tablet 2 mg PO BID #56 tabs 05/28/20 azithromycin 500 mg tablet See Rx Instructions PO .COMPLEX #6 07/25/20 (Zithromax TRI-KEYLA) tabs benzonatate 100 mg capsule 100 mg PO TID PRN cough #20 caps 07/25/20 (Tessalon Perles) dexamethasone 6 mg tablet 6 mg PO DAILY 10 days #10 tabs 07/25/20 hyoscyamine sulfate 0.125 mg tablet 0.25 mg (2 x 0.125 mg) PO QID PRN 07/31/20 dyspepsia #10 tabs blood sugar diagnostic (FreeStyle #100 ea 08/29/20 Test strips) pantoprazole 40 mg tablet,delayed 40 mg PO DAILY 90 days #90 tabs 08/29/20 release sumatriptan succinate 50 mg tablet 50 mg PO Q2-4H PRN migraine 08/30/20 headache 30 days #9 tabs ibuprofen 600 mg tablet 600 mg PO Q8H PRN pain #14 tabs 09/03/20 cyclobenzaprine 5 mg tablet 5 mg PO BEDTIME PRN muscle spasm 09/08/20 30 days #30 tabs Carafate 100 mg/mL oral suspension 10 ml PO BID 30 days #600 mL 09/11/20 (sucralfate) lisinopril 30 mg tablet 30 mg PO DAILY #28 tabs 09/17/20 ezetimibe 10 mg tablet (Zetia) 10 mg PO DAILY 90 days #90 tabs 11/04/20 pioglitazone 30 mg tablet 30 mg PO DAILY #90 tabs 11/04/20 fluticasone propionate 44 2 puff PO BID 30 days #31.8 grams 02/13/21 mcg/actuation HFA aerosol inhaler (Flovent HFA) metformin 1,000 mg tablet 1,000 mg PO BID 90 days #180 tabs 03/03/21 cefpodoxime 200 mg tablet 200 mg PO Q12H 10 days #20 tabs 05/04/21 ketorolac 10 mg tablet 10 mg PO QID 5 days #20 tabs 05/04/21 acetaminophen 500 mg tablet 500 mg PO Q6H PRN pain 30 days 07/08/21 (Tylenol Extra Strength) #120 tabs acetaminophen 325 mg tablet 325 mg PO Q6H PRN pain #30 tabs 04/30/22 (Tylenol) metoclopramide HCl 10 mg tablet 10 mg PO QIDACHS nausea and 05/25/22 (Reglan) vomiting #120 tabs sennosides 8.6 mg capsule (senna) 17.2 mg (2 x 8.6 mg) PO BEDTIME 05/25/22 constipation 30 days #60 caps sucralfate 100 mg/mL oral 10 ml PO QID #1,000 mL 05/25/22 suspension (Carafate) ondansetron 4 mg disintegrating 4 mg PO Q8H 3 days #9 tabs 07/11/22 tablet omeprazole 40 mg capsule,delayed 40 mg PO BID 14 days #28 caps 09/07/22 release sucralfate 1 gram tablet (Carafate) 1 g PO TID 30 days #90 tabs 09/07/22 risperidone 0.5 mg tablet 0.5 mg PO DAILY 90 days #90 tabs 10/28/22 (Risperdal) ketorolac 10 mg tablet 10 mg PO TID PRN pain #10 tabs 06/28/23 loperamide 2 mg capsule 2 mg PO Q4H PRN loose stool #14 06/28/23 caps Allergies Allergy/AdvReac Type Severity Reaction Status Date / Time Iodinated Contrast Media Allergy Unknown ITCHY Verified 07/01/23 08:47 [IV CONTRAST] lactose [LACTOSE] Allergy Unknown EYES Verified 07/01/23 08:47 SWELLING morphine Allergy Unknown swelling Verified 07/01/23 08:47 oxycodone [Percocet] Allergy Unknown anaphylaxis Verified 07/01/23 08:47 tramadol Allergy Unknown pruritus, Verified 07/01/23 08:47 nausea dulaglutide [Trulicity] AdvReac Unknown vomiting Verified 07/01/23 08:47 oxybutynin AdvReac Unknown dizziness Verified 07/01/23 08:47 latex Allergy Unknown Itching Uncoded 06/28/23 09:14 Review of Systems Reports system reviewed and no additional complaints, except as documented Cardiovascular: Reports no additional cardiovascular complaints Respiratory: Reports no additional respiratory complaints Gastrointestinal: Reports abdominal pain Musculoskeletal: Reports no additional musculoskeletal complaints Reports system reviewed and no additional complaints, except as documented PMFSH Past Medical History Medical History Pneumonia due to COVID-19 virus COVID-19 History of kidney stones C. difficile diarrhea GERD (gastroesophageal reflux disease) Hyperlipidemia Depression Seizure Asthma Beauchamp's esophagus Diabetes mellitus Essential hypertension Pure hypercholesterolemia Surgical History History of esophagogastroduodenoscopy (EGD) Hx of colonoscopy History of surgery History of bladder surgery S/P ISABEL-BSO (total abdominal hysterectomy and bilateral salpingo-oophorectomy) History of tubal ligation Family History Family History Father Medical history unknown Mother Medical history unknown Family/Other Diabetes Hypertension Social History Social History Household Members: None Alcohol intake: never Patient Tobacco Use Status: Never used Tobacco Smoked in Last 30 Days: No Use of substances other than those prescribed or required for medical reasons: No Advance Directives: No Current occupational status: disabled Physical Exam ED Vital Signs: Vital Signs - 24 hr 07/01/23 08:44 07/01/23 10:45 07/01/23 12:36 Temperature 98.9 F Pulse Rate 78 82 82 Respiratory Rate 20 18 15 Blood Pressure 140/71 H 150/76 H 123/65 Pulse Oximetry 98 98 98 Oxygen Delivery Method Room Air Room Air Room Air BMI result Body Mass Index 26.6 Medical Decision Making Lab Data 07/01/23 08:55 07/01/23 08:55 Labs: Lab Results 07/01/23 07/01/23 Range/Units 08:55 10:48 WBC 5.7 (4.8-10.8) X10*3/uL RBC 4.03 L (4.20-5.50) X10*6/uL Hgb 12.0 (12.0-16.0) g/dl Hct 36.7 L (37.0-47.0) % MCV 91.1 (80.0-98.0) fL MCH 29.8 (27.0-33.0) pg MCHC 32.7 (31.0-35.0) g/dl RDW 14.9 (11.0-16.0) % Plt Count 214 (160-400) X10*3/uL MPV 11.1 (9.4-12.3) fL Immature Gran % (Auto) 0.2 (0.0-0.4) % Neut % (Auto) 47.8 (45-73) % Lymph % (Auto) 39.8 (20-40) % [place] % (Auto) 7.4 (2-11) % Eos % (Auto) 3.9 (0-4) % Baso % (Auto) 0.9 (0-2) % Lymph # (Auto) 2.3 (1.2-4.9) X10*3/uL [place] # (Auto) 0.4 (0.1-1.2) X10*3/uL Eos # (Auto) 0.2 (0.0-0.4) X10*3/uL Baso # (Auto) 0.1 (0.0-0.2) X10*3/uL Abs Immat Gran (auto) 0.01 (0.00-0.03) X10*3/uL Absolute Neuts (auto) 2.7 (2.0-8.3) x10*3/uL Absolute Nucleated RBC 0.000 (0.0-0.012) X10*3/uL Nucleated RBC % (auto) 0.0 (0.0-0.2) /100WBC Sodium 141 (135-145) mmol/L Potassium 4.0 (3.3-5.1) mmol/L Chloride 107 (96-108) mmol/L Carbon Dioxide 27 (22-29) mmol/L Anion Gap 11 L (12-20) BUN 17 H (9-16) mg/dL Creatinine 0.85 (0.5-1.4) mg/dL Estim Creat Clear Calc 44.8 Estimated GFR > 60 Random Glucose 171 H (60-115) mg/dL Calcium 9.4 (8.4-10.2) mg/dL Total Bilirubin 0.5 (0.0-1.0) mg/dL Direct Bilirubin 0.2 (0.0-0.5) mg/dL AST 20 (5-31) U/L ALT 11 (0-31) U/L Alkaline Phosphatase 66 (39-117) U/L Total Protein 6.6 (6.5-8.0) g/dL Albumin 3.9 (3.5-5.0) g/dL Lipase 15 (8-78) U/L Urine Color Yellow Urine Appearance Clear Urine pH 7.0 (5.0-9.0) Ur Specific [place] 1.015 (1.005-1.025) Urine Protein Trace (Neg-Trace) mg/dL Urine Glucose (UA) Negative (Negative) mg/dL Urine Ketones Negative (Negative) mg/dL Urine Blood Negative (Negative) Urine Nitrite Negative (Negative) Ur Leukocyte Esterase Negative (Negative) Medications Administered Discontinued Medications Generic Name Dose Route Start Last Admin Trade Name Daryl PRN Reason Stop Dose Admin Tramadol HCl 50 mg 07/01/23 11:05 07/01/23 11:11 Tramadol Hcl 50 Mg Tablet PO 07/01/23 11:06 50 mg ONCE ONE Administration Discharge Plan Discharge Prescriptions: No Action atorvastatin 80 mg tablet 80 mg PO DAILY 90 Days Qty: 90 3RF hydrochlorothiazide 12.5 mg tablet 12.5 mg PO DAILY 90 Days Qty: 90 3RF multivitamin Tablet 1 tab PO DAILY 30 Days Qty: 30 11RF Elmiron 100 mg capsule 100 mg PO TID 30 Days Qty: 90 11RF tolterodine 2 mg tablet 2 mg PO BID Qty: 56 11RF (DME) FreeStyle Test Strip See Rx Instructions .ROUTE .MEDSUPPLY Qty: 100 11RF Rx Instructions: Use 1 test strip twice a day pantoprazole 40 mg tablet,delayed release (DR/EC) 40 mg PO DAILY 90 Days Qty: 90 3RF sumatriptan succinate 50 mg tablet 50 mg PO Q2-4H PRN (Reason: migraine headache) 30 Days Qty: 9 6RF Rx Instructions: do not exceed 4 doses per 24 hrs cyclobenzaprine 5 mg tablet 5 mg PO BEDTIME PRN (Reason: muscle spasm) 30 Days Qty: 30 0RF lisinopril 30 mg tablet 30 mg PO DAILY Qty: 28 6RF ezetimibe [Zetia] 10 mg tablet 10 mg PO DAILY 90 Days Qty: 90 3RF pioglitazone 30 mg tablet 30 mg PO DAILY Qty: 90 3RF Flovent HFA 44 mcg/actuation HFA aerosol inhaler 2 puff PO BID 30 Days Qty: 31.8 6RF metformin 1,000 mg tablet 1,000 mg PO BID 90 Days Qty: 180 1RF risperidone [Risperdal] 0.5 mg tablet 0.5 mg PO DAILY 90 Days Qty: 90 2RF ibuprofen 600 mg tablet 600 mg PO Q8H PRN (Reason: pain) Qty: 14 0RF dexamethasone 6 mg tablet 6 mg PO DAILY 10 Days Qty: 10 0RF azithromycin [Zithromax TRI-KEYLA] 500 mg tablet See Rx Instructions .ROUTE .COMPLEX Qty: 6 0RF Rx Instructions: take 500 mg today (day 1), then 250 mg for 4 days (days 2-5) benzonatate [Tessalon Perles] 100 mg capsule 100 mg PO TID PRN (Reason: cough) Qty: 20 0RF hyoscyamine sulfate 0.125 mg tablet 0.25 mg PO QID PRN (Reason: dyspepsia) Qty: 10 0RF acetaminophen [Tylenol] 325 mg tablet 325 mg PO Q6H PRN (Reason: pain) Qty: 30 0RF ondansetron 4 mg tablet,disintegrating 4 mg PO Q8H 3 Days Qty: 9 0RF cefpodoxime 200 mg tablet 200 mg PO Q12H 10 Days Qty: 20 0RF Rx Instructions: must administer with a meal/food ketorolac 10 mg tablet 10 mg PO QID 5 Days Qty: 20 0RF omeprazole 40 mg capsule,delayed release(DR/EC) 40 mg PO BID 14 Days Qty: 28 0RF sucralfate [Carafate] 1 gram tablet 1 g PO TID 30 Days Qty: 90 2RF ketorolac 10 mg tablet 10 mg PO TID PRN (Reason: pain) Qty: 10 0RF loperamide 2 mg capsule 2 mg PO Q4H PRN (Reason: loose stool) Qty: 14 0RF Rx Instructions: administer after each loose stool until symptoms controlled; do not exceed 8 mg per 24 hrs sucralfate [Carafate] 100 mg/mL suspension 10 ml PO BID 30 Days Qty: 600 4RF Rx Instructions: 10mL at noon and bedtime on an empty stomach metoclopramide HCl [Reglan] 10 mg tablet 10 mg PO QIDACHS Qty: 120 6RF Hold Instructions: Doctor's Order senna 8.6 mg capsule 17.2 mg PO BEDTIME 30 Days Qty: 60 3RF sucralfate [Carafate] 100 mg/mL suspension 10 ml PO QID Qty: 1000 6RF Rx Instructions: swish in mouth and swallow; use after food/drink acetaminophen [Tylenol Extra Strength] 500 mg tablet 500 mg PO Q6H PRN (Reason: pain) 30 Days Qty: 120 1RF
== END 2023-07-01 14:00 | disposition home or self-care (01) ==
PROVIDERS: Emergency Provider Emergency Medicine; PCP Internal Medicine
DX: R10.13 Epigastric pain (principal); E11.9 Type 2 diabetes mellitus without complications; I10 Essential (primary) hypertension; E78.00 Pure hypercholesterolemia, unspecified; Z79.02 Long term (current) use of antithrombotics/antiplatelets; Z79.899 Other long term (current) drug therapy; Z79.84 Long term (current) use of oral hypoglycemic drugs
CPT/HCPCS: 36415; 80048; 80076; 81003; 83690; 85025; 99283; 99284

== ENCOUNTER 2023-10-12 09:09 | Outpatient (REF) | payer OTHER, SELFPAY ==
[2023-10-12 11:32] LABS: MANUAL DIFF FLAG NO
[2023-10-12 11:43] LABS: Basophils Absolute Auto 0.1 X10*3/uL (0.0-0.2); Basophils Percent Auto 0.7 % (0-2); Eosinophils Absolute Auto 0.2 X10*3/uL (0.0-0.4); Eosinophils Percent Auto 3.1 % (0-4); Hematocrit 38.8 % (37.0-47.0); Hemoglobin 12.9 g/dl (12.0-16.0); Imm Gran Abs Auto 0.02 X10*3/uL (0.00-0.03); Imm Gran Pct Auto 0.3 % (0.0-0.4); Mean Corpuscular HGB Conc 33.2 g/dl (31.0-35.0); Mean Corpuscular Hemoglobin 30.5 pg (27.0-33.0); Mean Corpuscular Volume 91.7 fL (80.0-98.0); Mean Platelet Volume 11.4 fL (9.4-12.3); Monocytes Absolute Auto 0.5 X10*3/uL (0.1-1.2); Neutrophils Absolute Auto 4.2 x10*3/uL (2.0-8.3); Neutrophils Percent Auto 59.9 % (45-73); Platelet Count 195 X10*3/uL (160-400); Red Blood Count 4.23 X10*6/uL (4.20-5.50)
[2023-10-12 11:56] LABS: Anion Gap 17 (12-20); Blood Urea Nitrogen 12 mg/dL (9-16); C Reactive Protein 0.11 mg/dL (< or = 0.50); Calcium 10.2 mg/dL (8.4-10.2); Carbon Dioxide 25 mmol/L (22-29); Chloride 103 mmol/L (96-108); Estimated Glomerular Filt Rate > 60; Glucose Random 168 mg/dL (60-115); Potassium 3.8 mmol/L (3.3-5.1); Sodium 141 mmol/L (135-145)
== END 2023-10-12 09:10 | disposition home or self-care (01) ==
LOC: HO.HHCL 09:09
PROVIDERS: Visit Provider Family Medicine
DX: R10.84 Generalized abdominal pain (principal)
CPT/HCPCS: 36415; 80048; 85025; 86140

== ENCOUNTER 2023-12-08 09:13 | Outpatient (REF) | payer OTHER, SELFPAY ==
--- NOTE | ~2023-12-08 | XR_ITS ---
EXAMINATION: XR LUMBOSACRAL SPINE CLINICAL INFORMATION: Back pain. COMPARISON: CT abdomen/pelvis 06/28/2023. TECHNIQUE: Three views of the lumbosacral spine. FINDINGS: Chronic compression deformity at T11. No evidence of acute compression fractures or subluxation. Moderate intervertebral disc height loss at T10-T11, T11-T12, L4-L5 and L5-S1. Severe facet arthropathy from L4 through S1 leading to neural foraminal encroachment. Symmetric SI joints. Scattered abdominopelvic phleboliths. No significant paraspinal soft tissue abnormality. XR/XR lumbar spine 2-3V IMPRESSION: 1. No acute compression fractures or subluxation. 2. Chronic compression deformity at T11. 3. Moderate to severe lumbar spondylosis.
== END 2023-12-08 09:14 | disposition home or self-care (01) ==
LOC: HO.HHCX 09:13
PROVIDERS: Visit Provider Family Medicine
DX: M54.50 Low back pain, unspecified (principal)
CPT/HCPCS: 72100

== ENCOUNTER 2023-12-11 10:03 | Emergency (ER) | payer OTHER, SELFPAY ==
--- NOTE | ~2023-12-11 | CT_ITS ---
EXAMINATION: CT ABDOMEN AND PELVIS WITH CONTRAST CLINICAL INFORMATION: Left lower quadrant pain. COMPARISON: 06/28/2023 TECHNIQUE: Multidetector volumetric images were obtained from the superior aspect of the liver through the pubic symphysis following administration 85 mL of Omnipaque 350 intravenous contrast. Sagittal and coronal reformatted images were obtained on the technologist's workstation. Oral contrast: No This CT examination was performed using dose optimization techniques as appropriate, variously including the following: *Automated exposure control *Adjustment of mA and/or kV according to patient size (this includes techniques or standardized protocols for targeted exams where dose is matched to indication/reason for exam; i.e. extremities or head) *Use of iterative reconstruction technique DLP: 399 mGy-cm FINDINGS: LUNG BASES: Nonspecific distal esophageal wall thickening. Calcified granulomas. LIVER, GALLBLADDER, AND BILIARY TREE: The liver is decreased in attenuation. No suspicious hepatic lesion or biliary ductal dilatation is present. The gallbladder is unremarkable with no evidence of radiopaque gallstones, gallbladder wall thickening, or obvious pericholecystic inflammatory changes. PANCREAS: No ductal dilatation. SPLEEN: Not enlarged. ADRENAL GLANDS: No adrenal mass. KIDNEYS AND URETERS: The kidneys are symmetric in size and enhancement. No hydronephrosis or perinephric stranding. BLADDER: Unremarkable. GASTROINTESTINAL TRACT: Small and large bowel loops are of normal caliber. Diverticular disease of the colon. No small bowel obstruction. ABDOMINAL WALL: No significant hernia is appreciated. LYMPH NODES: No bulky lymphadenopathy. VASCULAR: Normal caliber abdominal aorta. Circumaortic left renal vein. PELVIC VISCERA: Irregular soft tissue thickening involving the perineum incompletely evaluated. Uterus is surgically absent. OSSEOUS STRUCTURES: Stable height loss of T11 vertebral body. CT/CT abdomen pelvis w IV con IMPRESSION: Irregular soft tissue thickening involving the perineum incompletely evaluated. This appears to have increased since 06/28/2023.
[2023-12-11 10:21] VITALS: BP 148/83; PULSE 88; RESP 19; TEMP 36.6; O2SAT 98; BMI 26.3
[2023-12-11 11:12] LABS: MANUAL DIFF FLAG NO
[2023-12-11] MEDS: 0.9 % Sodium Chloride 1,000 ML 999 ML IV (11:14)
[2023-12-11 11:15] LABS: Appearance Urine Clear; Color Urine Yellow; Glucose Urine UA Negative (Negative); Leukocyte Esterase Urine Trace (Negative); Nitrite Urine Negative (Negative); UMIC TRIGGER UACC YES; Urine Blood Negative (Negative); Urine Ketones Negative (Negative); Urine Protein Negative (Neg-Trace)
[2023-12-11 11:16] LABS: Basophils Absolute Auto 0.1 X10*3/uL (0.0-0.2); Eosinophils Absolute Auto 0.1 X10*3/uL (0.0-0.4); Eosinophils Percent Auto 2.1 % (0-4); Hematocrit 37.4 % (37.0-47.0); Hemoglobin 12.5 g/dl (12.0-16.0); Imm Gran Abs Auto 0.01 X10*3/uL (0.00-0.03); Imm Gran Pct Auto 0.2 % (0.0-0.4); Lymphocytes Absolute Auto 2.8 X10*3/uL (1.2-4.9); Lymphocytes Percent Auto 45.1 % (20-40); Mean Corpuscular HGB Conc 33.4 g/dl (31.0-35.0); Mean Corpuscular Hemoglobin 31.3 pg (27.0-33.0); Mean Corpuscular Volume 93.5 fL (80.0-98.0); Monocytes Absolute Auto 0.4 X10*3/uL (0.1-1.2); Monocytes Percent Auto 6.1 % (2-11); Neutrophils Absolute Auto 2.8 x10*3/uL (2.0-8.3); Neutrophils Percent Auto 45.5 % (45-73); Platelet Count 212 X10*3/uL (160-400); Red Cell Distribution Width 13.7 % (11.0-16.0); White Blood Count 6.1 X10*3/uL (4.8-10.8)
[2023-12-11 11:18] LABS: Bacteria Urine None Seen (None Seen); Hyaline Casts Urine 0-2 /LPF (0-2); RBC Urine 0-2 /HPF (0-2); Squamous Epithelial Cell Urine 0-2 /HPF (0-2); UACC Culture Trigger YES
--- NOTE | 2023-12-11 11:23 | ED_ITS ---
HPI - General Adult General Chief complaint: Back Pain/Injury Stated complaint: Low back pain Time Seen by Provider: 12/11/23 10:38 Source: patient Mode of arrival: ambulatory Limitations: no limitations History of Present Illness HPI narrative: 78-year-old female history of hypertension, diabetes, hypercholesterolemia, lumbar degenerative disc disease, and gastroparesis presents to ED for left lower back pain, left lower quadrant abdominal pain, and left hip pain. Patient states pain is worse on movement. Patient denies any fever, chills, dysuria, hematuria, nausea, vomiting, any recent trauma. Patient denies any urinary / bowel incontinence. patient denies any history of IV drug use. Related Data Previous Rx's ?Medication ?Instructions ?Recorded atorvastatin 80 mg tablet 80 mg PO DAILY 90 days #90 tabs 05/13/20 hydrochlorothiazide 12.5 mg tablet 12.5 mg PO DAILY 90 days #90 tabs 05/13/20 multivitamin 1 tab PO DAILY 30 days #30 tabs 05/13/20 pentosan polysulfate sodium 100 mg 100 mg PO TID 30 days #90 caps 05/13/20 capsule (Elmiron) tolterodine 2 mg tablet 2 mg PO BID #56 tabs 05/28/20 azithromycin 500 mg tablet See Rx Instructions PO .COMPLEX #6 07/25/20 (Zithromax TRI-KEYLA) tabs benzonatate 100 mg capsule 100 mg PO TID PRN cough #20 caps 07/25/20 (Tessalon Perles) dexamethasone 6 mg tablet 6 mg PO DAILY 10 days #10 tabs 07/25/20 hyoscyamine sulfate 0.125 mg tablet 0.25 mg (2 x 0.125 mg) PO QID PRN 07/31/20 dyspepsia #10 tabs blood sugar diagnostic (FreeStyle #100 ea 08/29/20 Test strips) pantoprazole 40 mg tablet,delayed 40 mg PO DAILY 90 days #90 tabs 08/29/20 release sumatriptan succinate 50 mg tablet 50 mg PO Q2-4H PRN migraine 08/30/20 headache 30 days #9 tabs ibuprofen 600 mg tablet 600 mg PO Q8H PRN pain #14 tabs 09/03/20 cyclobenzaprine 5 mg tablet 5 mg PO BEDTIME PRN muscle spasm 09/08/20 30 days #30 tabs Carafate 100 mg/mL oral suspension 10 ml PO BID 30 days #600 mL 09/11/20 (sucralfate) lisinopril 30 mg tablet 30 mg PO DAILY #28 tabs 09/17/20 ezetimibe 10 mg tablet (Zetia) 10 mg PO DAILY 90 days #90 tabs 11/04/20 pioglitazone 30 mg tablet 30 mg PO DAILY #90 tabs 11/04/20 fluticasone propionate 44 2 puff PO BID 30 days #31.8 grams 02/13/21 mcg/actuation HFA aerosol inhaler (Flovent HFA) metformin 1,000 mg tablet 1,000 mg PO BID 90 days #180 tabs 03/03/21 cefpodoxime 200 mg tablet 200 mg PO Q12H 10 days #20 tabs 05/04/21 ketorolac 10 mg tablet 10 mg PO QID 5 days #20 tabs 05/04/21 acetaminophen 500 mg tablet 500 mg PO Q6H PRN pain 30 days 07/08/21 (Tylenol Extra Strength) #120 tabs acetaminophen 325 mg tablet 325 mg PO Q6H PRN pain #30 tabs 04/30/22 (Tylenol) metoclopramide HCl 10 mg tablet 10 mg PO QIDACHS nausea and 05/25/22 (Reglan) vomiting #120 tabs sennosides 8.6 mg capsule (senna) 17.2 mg (2 x 8.6 mg) PO BEDTIME 05/25/22 constipation 30 days #60 caps sucralfate 100 mg/mL oral 10 ml PO QID #1,000 mL 05/25/22 suspension (Carafate) ondansetron 4 mg disintegrating 4 mg PO Q8H 3 days #9 tabs 07/11/22 tablet omeprazole 40 mg capsule,delayed 40 mg PO BID 14 days #28 caps 09/07/22 release sucralfate 1 gram tablet (Carafate) 1 g PO TID 30 days #90 tabs 09/07/22 ketorolac 10 mg tablet 10 mg PO TID PRN pain #10 tabs 06/28/23 loperamide 2 mg capsule 2 mg PO Q4H PRN loose stool #14 06/28/23 caps tramadol 50 mg tablet 50 mg PO BID PRN pain #12 tabs 07/01/23 risperidone 0.5 mg tablet 0.5 mg PO DAILY 90 days #90 tabs 07/20/23 (Risperdal) ketorolac 10 mg tablet 10 mg PO Q6H PRN pain 5 days #20 12/11/23 tabs prednisone 20 mg tablet 40 mg (2 x 20 mg) PO DAILY 5 days 12/11/23 #10 tabs Allergies Allergy/AdvReac Type Severity Reaction Status Date / Time Iodinated Contrast Media Allergy Unknown ITCHY Verified 12/11/23 10:24 [IV CONTRAST] lactose [LACTOSE] Allergy Unknown EYES Verified 12/11/23 10:24 SWELLING morphine Allergy Unknown swelling Verified 12/11/23 10:24 oxycodone [Percocet] Allergy Unknown anaphylaxis Verified 12/11/23 10:24 tramadol Allergy Unknown pruritus, Verified 12/11/23 10:24 nausea dulaglutide [Trulicity] AdvReac Unknown vomiting Verified 12/11/23 10:24 oxybutynin AdvReac Unknown dizziness Verified 12/11/23 10:24 latex Allergy Unknown Itching Uncoded 12/11/23 10:24 Review of Systems 2 Review of Systems: Left lower back pain, left lower abdominal pain, Yes all other systems are reviewed and are negative PMFSH Past Medical History Medical History Pneumonia due to COVID-19 virus COVID-19 History of kidney stones C. difficile diarrhea GERD (gastroesophageal reflux disease) Hyperlipidemia Depression Seizure Asthma Beauchamp's esophagus Diabetes mellitus Essential hypertension Pure hypercholesterolemia Surgical History History of esophagogastroduodenoscopy (EGD) Hx of colonoscopy History of surgery History of bladder surgery S/P ISABEL-BSO (total abdominal hysterectomy and bilateral salpingo-oophorectomy) History of tubal ligation Family History Family History Father Medical history unknown Mother Medical history unknown Family/Other Diabetes Hypertension Social History Social History (System 10/13/23 @ 14:07 by Doris Shields) Household Members: None Alcohol intake: never Patient Tobacco Use Status: Never used Tobacco Advance Directives: No Advance Directives Information Provided: Yes Current occupational status: disabled Physical Exam ED Vital Signs: Vital Signs - 24 hr 12/11/23 10:21 12/11/23 15:21 Temperature 98 F 98 F Pulse Rate 88 89 Respiratory Rate 19 14 Blood Pressure 148/83 H 154/76 H Pulse Oximetry 98 100 Oxygen Delivery Method Room Air BMI result Body Mass Index 26.3 Const General: cooperative, healthy appearing, comfortable, no acute distress, well developed, alert, awake and Physically active Orientation/consciousness: oriented to person, oriented to place, oriented to time and patient oriented x3 [facility] Head: Yes normal to inspection, Yes No palpable skull fracture present, Yes normocephalic, Yes atraumatic and No abrasion Eyes General: appearance normal, both eyes and all related structures Neck Neck: Yes normal visual inspection, Yes full ROM, Yes no lymphadenopathy, Yes no meningeal signs, Yes trachea midline, Yes supple, No anterior neck swelling and No tender Chest Chest palpation & inspection: normal inspection of the chest and normal palpation of entire chest wall Resp Effort & Inspection: normal respiratory effort and able to speak in complete sentences Auscultation: clear to auscultation bilaterally Cardio Jugular venous distension: no JVD Heart sounds: S1 normal heart sound present and S2 normal heart sound present GI Inspection: Yes normal to inspection Palpation (GI): Soft to palpation, not firm, Tenderness to palpation present (GI) in the LLQ, no guarding and not rigid Other: rectal exam patient has good strength. Negative for saddle anesthesia. General: Yes CVA tenderness ( mild) Back/Spine/Pelvis Other: positive left straight leg test Back: CVA tenderness ( mild) and back tenderness ( left lower lumbar spine and muscular tenderness on palpation) Skin General skin exam: no rashes or lesions noted, elasticity normal and turgor normal Neuro General: oriented to person, oriented to place, oriented to time, patient oriented x3, gait normal, tone normal, moves all extremities, Normal light touch and pain sensation, no meningeal signs, no focal motor deficits, CN's II-XI intact bilaterally and normal sensation to monofilament Extrem Other: Bilateral lower extremity negative for swelling, ecchymosis, tenderness, bluish black discoloration, palpable mass/chord, hotness, or coldness. Bilateral hips negative for any ecchymosis, fracture, deformity. Lower extremities negative for internal / external rotation. Bilateral lower extremity femoral and pedal pulses intact. General: Yes normal to inspection, Yes full ROM and Yes capillary refill normal Psych Appearance: grossly normal, well kempt and not disheveled Course Course Course Narrative: Medications Administered Discontinued Medications Generic Name Dose Route Start Last Admin Trade Name Daryl PRN Reason Stop Dose Admin Diphenhydramine HCl 50 mg 12/11/23 11:20 12/11/23 11:33 Diphenhydramine Hcl 50 Mg/Ml Vial IVPUSH 12/11/23 11:21 50 mg ONCE ONE Administration Famotidine 20 mg 12/11/23 11:20 12/11/23 11:32 Famotidine/Pf 20 Mg/2 Ml Vial IVPUSH 12/11/23 11:21 20 mg ONCE ONE Administration Sodium Chloride 1,000 mls @ 999 mls/hr 12/11/23 10:58 12/11/23 14:42 Ns IV 12/11/23 11:58 Infused .Q1H1M STA Infusion Iohexol 100 ml 12/11/23 13:12 12/11/23 13:12 Iohexol 350 Mg/Ml 100 Ml Infus..Btl IV 12/11/23 13:13 85 ml ONCE ONE Administration Ketorolac Tromethamine 30 mg 12/11/23 11:11 12/11/23 11:32 Ketorolac Tromethamine 30 Mg/Ml Vial IVPUSH 12/11/23 11:12 30 mg ONCE ONE Administration Methylprednisolone Sodium Succinate 125 mg 12/11/23 11:19 12/11/23 11:32 Methylprednisolone Sod Succ 125 Mg/2 Ml Vial IVPUSH 12/11/23 11:20 125 mg ONCE ONE Administration Medical Decision Making Medical Decision Making [facility] Narrative: [age] year female presents to ED for left lower back pain radiating to left lower quadrant left hip pain. Negative for signs of obvious trauma. Labs ordered. Toradol Solu-Medrol ordered. Benadryl Pepcid ordered. Due to left lower quadrant tenderness will do abdominal CT scan shows diverticulitis. Patient states herself no known allergies to contrast but many visits states allergy to IV contrast will do Solu-Medrol Benadryl Pepcid before IV contrast. ESR CRP ordered. 3:05pm: patient's labs came back normal. ESR CRP negative. History physical exam does not indicate cauda equina or epidural abscess. Abdominal CT scan negative for kidney stones, diverticulitis, or any hip fracture. Not suspecting any lower extremity DVT. Patient states pain resolved after receiving meds. Patient walk around the ED without any pain with normal gait. No longer has spine tenderness. CT scan shows perineum thickening. On exam though no signs of abscess or infection of perineum. Patient informed him this informed to follow up with primary care provider. Differential Diagnosis Differential Diagnoses: The differential diagnosis associated with the presentation includes ( Lumbar radiculopathy, diverticulitis, UTI.) Admission/Observation Consideration of admission/observation: Escalation of care including admission/observation considered Lab Data [facility] Lab Attestation statement: I reviewed the patient's lab results. 12/11/23 11:08 12/11/23 11:08 Labs: Lab Results 12/11/23 12/11/23 Range/Units 10:50 11:08 WBC 6.1 (4.8-10.8) X10*3/uL RBC 4.00 L (4.20-5.50) X10*6/uL Hgb 12.5 (12.0-16.0) g/dl Hct 37.4 (37.0-47.0) % MCV 93.5 (80.0-98.0) fL MCH 31.3 (27.0-33.0) pg MCHC 33.4 (31.0-35.0) g/dl RDW 13.7 (11.0-16.0) % Plt Count 212 (160-400) X10*3/uL MPV 10.0 (9.4-12.3) fL Immature Gran % (Auto) 0.2 (0.0-0.4) % Neut % (Auto) 45.5 (45-73) % Lymph % (Auto) 45.1 H (20-40) % [place] % (Auto) 6.1 (2-11) % Eos % (Auto) 2.1 (0-4) % Baso % (Auto) 1.0 (0-2) % Lymph # (Auto) 2.8 (1.2-4.9) X10*3/uL [place] # (Auto) 0.4 (0.1-1.2) X10*3/uL Eos # (Auto) 0.1 (0.0-0.4) X10*3/uL Baso # (Auto) 0.1 (0.0-0.2) X10*3/uL Abs Immat Gran (auto) 0.01 (0.00-0.03) X10*3/uL Absolute Neuts (auto) 2.8 (2.0-8.3) x10*3/uL Absolute Nucleated RBC 0.000 (0.0-0.012) X10*3/uL Nucleated RBC % (auto) 0.0 (0.0-0.2) /100WBC ESR 10 (0-20) MM/HR PT 12.0 (11.1-13.3) SEC INR 1.0 (0.9-1.1) APTT 30.3 (26.0-36.8) SEC Sodium 142 (135-145) mmol/L Potassium 3.4 (3.3-5.1) mmol/L Chloride 105 (96-108) mmol/L Carbon Dioxide 27 (22-29) mmol/L Anion Gap 13 (12-20) BUN 15 (9-16) mg/dL Creatinine 0.64 (0.5-1.4) mg/dL Estim Creat Clear Calc 59.1 Estimated GFR > 60 Random Glucose 128 H (60-115) mg/dL Calcium 10.3 H (8.4-10.2) mg/dL Total Bilirubin 0.5 (0.0-1.0) mg/dL AST 20 (5-31) U/L ALT 10 (0-31) U/L Alkaline Phosphatase 77 (39-117) U/L C-Reactive Protein 0.24 (< or = 0.50) mg/dL Total Protein 7.3 (6.5-8.0) g/dL Albumin 4.3 (3.5-5.0) g/dL Lipase 47 (8-78) U/L Urine Color Yellow Urine Appearance Clear Urine pH 7.0 (5.0-9.0) Ur Specific [place] 1.010 (1.005-1.025) Urine Protein Negative (Neg-Trace) mg/dL Urine Glucose (UA) Negative (Negative) mg/dL Urine Ketones Negative (Negative) mg/dL Urine Blood Negative (Negative) Urine Nitrite Negative (Negative) Ur Leukocyte Esterase Trace H (Negative) Urine RBC 0-2 (0-2) /HPF Urine WBC 6-10 H (0-5) /HPF Ur Squamous Epith Cells 0-2 (0-2) /HPF Urine Bacteria None Seen (None Seen) Hyaline Casts 0-2 (0-2) /LPF Independent Interpretation I performed an independent interpretation of an: CT Scan Radiology Impression Discussion of test interpretation with radiology: I have reviewed the radiologist's reading. Independent Historian Clinical information obtained from an independent historian. History obtained from or confirmed by: Parent ( ) and Other ( Patient) External Record Review External record reviewed: Other Prescription Management I considered prescription management with: Pain Medication Discharge Plan Discharge Clinical Impression: Lumbar radiculopathy, Radiculopathy, thoracic region Patient Disposition: Home, Self-Care Instructions: Lumbar Radiculopathy (ED), Back Pain (ED) Additional Instructions: recommend follow-up with primary care provider. Return to the ED immediately for any worsening back pain, urinary/ bowel incontinence, abdominal pain, nausea, vomiting, paralysis lower extremities, numbness in extremities, fever, chills, chest pain, shortness of breath, dysuria, hematuria or any other concerning symptoms. Abdominal CT scan FINDINGS: LUNG BASES: Nonspecific distal esophageal wall thickening. Calcified granulomas. LIVER, GALLBLADDER, AND BILIARY TREE: The liver is decreased in attenuation. No suspicious hepatic lesion or biliary ductal dilatation is present. The gallbladder is unremarkable with no evidence of radiopaque gallstones, gallbladder wall thickening, or obvious pericholecystic inflammatory changes. PANCREAS: No ductal dilatation. SPLEEN: Not enlarged. ADRENAL GLANDS: No adrenal mass. KIDNEYS AND URETERS: The kidneys are symmetric in size and enhancement. No hydronephrosis or perinephric stranding. BLADDER: Unremarkable. GASTROINTESTINAL TRACT: Small and large bowel loops are of normal caliber. Diverticular disease of the colon. No small bowel obstruction. ABDOMINAL WALL: No significant hernia is appreciated. LYMPH NODES: No bulky lymphadenopathy. VASCULAR: Normal caliber abdominal aorta. Circumaortic left renal vein. PELVIC VISCERA: Irregular soft tissue thickening involving the perineum incompletely evaluated. Uterus is surgically absent. OSSEOUS STRUCTURES: Stable height loss of T11 vertebral body. CT/CT abdomen pelvis w IV con IMPRESSION: Irregular soft tissue thickening involving the perineum incompletely evaluated. This appears to have increased since 06/28/2023. Prescriptions: New ketorolac 10 mg tablet 10 mg PO Q6H PRN (Reason: pain) 5 Days Qty: 20 0RF Rx Instructions: Patient received 30 mg IV Toradol in the ED. do not take any other NSAID with Toradol prednisone 20 mg tablet 40 mg PO DAILY 5 Days Qty: 10 0RF No Action atorvastatin 80 mg tablet 80 mg PO DAILY 90 Days Qty: 90 3RF hydrochlorothiazide 12.5 mg tablet 12.5 mg PO DAILY 90 Days Qty: 90 3RF multivitamin Tablet 1 tab PO DAILY 30 Days Qty: 30 11RF Elmiron 100 mg capsule 100 mg PO TID 30 Days Qty: 90 11RF tolterodine 2 mg tablet 2 mg PO BID Qty: 56 11RF (DME) FreeStyle Test Strip See Rx Instructions .ROUTE .MEDSUPPLY Qty: 100 11RF Rx Instructions: Use 1 test strip twice a day pantoprazole 40 mg tablet,delayed release (DR/EC) 40 mg PO DAILY 90 Days Qty: 90 3RF sumatriptan succinate 50 mg tablet 50 mg PO Q2-4H PRN (Reason: migraine headache) 30 Days Qty: 9 6RF Rx Instructions: do not exceed 4 doses per 24 hrs cyclobenzaprine 5 mg tablet 5 mg PO BEDTIME PRN (Reason: muscle spasm) 30 Days Qty: 30 0RF lisinopril 30 mg tablet 30 mg PO DAILY Qty: 28 6RF ezetimibe [Zetia] 10 mg tablet 10 mg PO DAILY 90 Days Qty: 90 3RF pioglitazone 30 mg tablet 30 mg PO DAILY Qty: 90 3RF Flovent HFA 44 mcg/actuation HFA aerosol inhaler 2 puff PO BID 30 Days Qty: 31.8 6RF metformin 1,000 mg tablet 1,000 mg PO BID 90 Days Qty: 180 1RF risperidone [Risperdal] 0.5 mg tablet 0.5 mg PO DAILY 90 Days Qty: 90 2RF ibuprofen 600 mg tablet 600 mg PO Q8H PRN (Reason: pain) Qty: 14 0RF dexamethasone 6 mg tablet 6 mg PO DAILY 10 Days Qty: 10 0RF azithromycin [Zithromax TRI-KEYLA] 500 mg tablet See Rx Instructions .ROUTE .COMPLEX Qty: 6 0RF Rx Instructions: take 500 mg today (day 1), then 250 mg for 4 days (days 2-5) benzonatate [Tessalon Perles] 100 mg capsule 100 mg PO TID PRN (Reason: cough) Qty: 20 0RF hyoscyamine sulfate 0.125 mg tablet 0.25 mg PO QID PRN (Reason: dyspepsia) Qty: 10 0RF acetaminophen [Tylenol] 325 mg tablet 325 mg PO Q6H PRN (Reason: pain) Qty: 30 0RF ondansetron 4 mg tablet,disintegrating 4 mg PO Q8H 3 Days Qty: 9 0RF cefpodoxime 200 mg tablet 200 mg PO Q12H 10 Days Qty: 20 0RF Rx Instructions: must administer with a meal/food ketorolac 10 mg tablet 10 mg PO QID 5 Days Qty: 20 0RF omeprazole 40 mg capsule,delayed release(DR/EC) 40 mg PO BID 14 Days Qty: 28 0RF sucralfate [Carafate] 1 gram tablet 1 g PO TID 30 Days Qty: 90 2RF ketorolac 10 mg tablet 10 mg PO TID PRN (Reason: pain) Qty: 10 0RF loperamide 2 mg capsule 2 mg PO Q4H PRN (Reason: loose stool) Qty: 14 0RF Rx Instructions: administer after each loose stool until symptoms controlled; do not exceed 8 mg per 24 hrs tramadol 50 mg tablet 50 mg PO BID PRN (Reason: pain) Qty: 12 0RF sucralfate [Carafate] 100 mg/mL suspension 10 ml PO BID 30 Days Qty: 600 4RF Rx Instructions: 10mL at noon and bedtime on an empty stomach metoclopramide HCl [Reglan] 10 mg tablet 10 mg PO QIDACHS Qty: 120 6RF Hold Instructions: Doctor's Order senna 8.6 mg capsule 17.2 mg PO BEDTIME 30 Days Qty: 60 3RF sucralfate [Carafate] 100 mg/mL suspension 10 ml PO QID Qty: 1000 6RF Rx Instructions: swish in mouth and swallow; use after food/drink acetaminophen [Tylenol Extra Strength] 500 mg tablet 500 mg PO Q6H PRN (Reason: pain) 30 Days Qty: 120 1RF Interventions: ED Discharge Assessment Last Done: 12/11/23 15:21 Discharge Date/Time: 12/11/23 15:22 Print Language: Swedish
[2023-12-11 11:29] LABS: Partial Thromboplastin Time 30.3 SEC (26.0-36.8)
[2023-12-11 11:30] LABS: Alanine Aminotransferase 10 U/L (0-31); Albumin Level 4.3 g/dL (3.5-5.0); Alkaline Phosphatase 77 U/L (39-117); Anion Gap 13 (12-20); Aspartate Amino Transferase 20 U/L (5-31); Bilirubin Total 0.5 mg/dL (0.0-1.0); Blood Urea Nitrogen 15 mg/dL (9-16); Calcium 10.3 mg/dL (8.4-10.2); Carbon Dioxide 27 mmol/L (22-29); Chloride 105 mmol/L (96-108); Creatinine Clr Calc Pharmacy 59.1; Estimated Glomerular Filt Rate > 60; Glucose Random 128 mg/dL (60-115); Lipase 47 U/L (8-78); Potassium 3.4 mmol/L (3.3-5.1); Sodium 142 mmol/L (135-145); Total Protein 7.3 g/dL (6.5-8.0)
[2023-12-11] MEDS: methylPREDNISolone Sod Succ 125 MG/2 ML VIAL IVPUSH (11:32)
[2023-12-11] MEDS: Ketorolac Tromethamine 30 MG/ML VIAL IVPUSH (11:32)
[2023-12-11] MEDS: Famotidine/PF 20 MG/2 ML VIAL IVPUSH (11:32)
[2023-12-11] MEDS: diphenhydrAMINE HCL 50 MG/ML VIAL IVPUSH (11:33)
[2023-12-11 11:40] LABS: C Reactive Protein 0.24 mg/dL (< or = 0.50)
[2023-12-11 12:13] LABS: Erythrocyte Sedimentation Rate 10 MM/HR (0-20)
[2023-12-11] MEDS: iohexoL 350 MG/ML 100 ML INFUS..BTL IV (13:12)
[2023-12-11 15:21] VITALS: BP 154/76; PULSE 89; RESP 14; TEMP 36.6; O2SAT 100
== END 2023-12-11 15:22 | disposition home or self-care (01) ==
PROVIDERS: Physician Assistant; Emergency Provider Emergency Medicine; PCP Internal Medicine
DX: M54.16 Radiculopathy, lumbar region (principal); M54.14 Radiculopathy, thoracic region; R10.32 Left lower quadrant pain; M54.50 Low back pain, unspecified; E11.9 Type 2 diabetes mellitus without complications; I10 Essential (primary) hypertension; E78.00 Pure hypercholesterolemia, unspecified; Z79.02 Long term (current) use of antithrombotics/antiplatelets; Z79.899 Other long term (current) drug therapy; Z79.84 Long term (current) use of oral hypoglycemic drugs
CPT/HCPCS: 36415; 74177; 80053; 81001; 81003; 83690; 85025; 85610; 85652; 85730; 86140; 87086; 87088; 87186; 96361; 96374; 96375; 99284; J1200; J1885; J2919; Q9967

== ENCOUNTER 2024-04-29 17:57 | Outpatient (REF) | payer OTHER, SELFPAY | END 2024-04-29 17:58 | disposition home or self-care (01) | LOC: HO.HHCLNP 17:57 | PROVIDERS: Visit Provider Internal Medicine | DX: R39.9 Unspecified symptoms and signs involving the genitourinary system (principal) | CPT/HCPCS: 87086 ==

== ENCOUNTER 2025-01-01 09:42 | Outpatient (REF) | payer OTHER, SELFPAY ==
--- NOTE | ~2025-01-01 | XR_ITS ---
EXAMINATION: XR LUMBOSACRAL SPINE CLINICAL INFORMATION: severe, worsening LBP x 2 weeks COMPARISON: None available. TECHNIQUE: Three views of the lumbosacral spine. FINDINGS: *Chronic ossifications are evident in the abdominal aorta. There are 5 nonrib-bearing lumbar segments. There is 12 degrees dextroscoliosis. Chronic moderate superior endplate compression fracture of T11 is stable. T12-L1: Moderate loss of disc height is unchanged. L1-2: Mild loss of disc height and subtle retrolisthesis is stable. L2-3: Moderate loss of disc height with anterior osteophyte is stable. L3-4: Moderate loss of disc height and disc bulge is stable. There is mild facet hypertrophy. L4-5: Moderate loss of disc height and endplate osteophytes are stable. There is luqh-ay-mrmtrwun facet hypertrophy. L5-S1: Unremarkable. There is facet sclerosis. Right SI joint is sclerotic with moderate narrowing and osteophytes. XR/XR lumbar spine 2-3V IMPRESSION: Stable mild dextroscoliosis, degenerative disc disease, and facet osteoarthritis. Stable moderate right SI joint osteoarthritis. Stable moderate compression fracture of T11. Electronically signed by: Albaro Sultana MD 01/01/2025 10:47 AM EDT
--- OUTSIDE RECORDS SUMMARY | 2025-01-01 10:10 | XMS_ITS | Clinical Summary ---
Author Organization [facility] Address [address] [place] [id number] Care Team Providers Care [employer] Carman Name Role Phone Traa Colby MD Primary Care Provider Social History Tobacco Use Types Packs/Day Years Used Date Smoking Tobacco: Never Assessed Comments Unknown Sex and Gender Information Value Date Recorded Sex Assigned at Not on file Legal Sex Female 4:41 PM EST Gender Identity Not on file Sexual Orientation Not on file Plan of Treatment Health Maintenance Due Date Last Done Comments Diabetes: Annual GFR (Glomerular Filtration Rate) 1945 Diabetes: Annual Foot Exam 1955 Diabetes: Annual Retina Eye Exam 1955 Zoster Vaccines (1 of 2) 1995 Pneumococcal Vaccine: 50+ Years (2 of 2 - PCV) 02/20/2013 02/21/2012, 04/11/2003 RSV Immunization Adult Patients (1 - 1-dose 75+ series) 2020 DTaP,Tdap,and Td Vaccines (3 - Td or Tdap) 04/15/2021 04/15/2011, 10/13/2000 Cholesterol Screening (Lipid Panel) 06/29/2022 Depression Screening 06/29/2022 Falls Risk Assessment 06/29/2022 Hepatitis C Screening 06/29/2022 Osteoporosis Screening (Bone Density Screening) 06/29/2022 Social Influencers of Health Screening 06/29/2022 Diabetes: Annual Urine Albumin-Creatinine Ratio (uACR) 07/16/2022 Diabetes: Blood Sugar Contro l Test (HGBA1C) 07/16/2022 Hypertension/CHF/CAD Annual BMP Blood Test 07/16/2022 COVID-19 Vaccine ( - 2023-2 5 season) 2024 Influenza Vaccine (Season Ended) 2025 Hepatitis B Vaccines Aged Out 08/17/2011, 01/26/2011, 10/16/2010 No longer eligible based on patient's age to complete this topic HIB Vaccines Aged Out No longer eligi ble based on patient's age to complete this topic HPV Vaccines Aged Out No longer eligi ble based on patient's age to complete this topic Hepatitis A Vaccines Aged Out No long er eligible based on patient's age to complete this topic IPV Vaccines Aged Out No longer eligi ble based on patient's age to complete this topic MMR Vaccines Aged Out No longer eligi ble based on patient's age to complete this topic Meningococcal ACWY Vaccine Aged Out N o longer eligible based on patient's age to complete this topic Meningococcal B Vaccine Aged Out No l onger eligible based on patient's age to complete this topic RSV Immunization Patients Under 20 months Aged Out No longer eligible b ased on patient's age to complete this topic Varicella Vaccines Aged Out No longer eligible based on patient's age to complete this topic Care Teams [employer] Car[employer] Relationship Specialty Start Date End Date Tara Colby MD [address] [place] [id number] PCP - General 01/16/15
== END 2025-01-01 09:43 | disposition home or self-care (01) ==
LOC: HO.HHCX 09:42
PROVIDERS: Visit Provider Family Medicine
DX: M54.50 Low back pain, unspecified (principal); R82.90 Unspecified abnormal findings in urine
CPT/HCPCS: 72100; 87086; 87088; 87186

== ENCOUNTER → 2025-01-01 09:42 | Outpatient (BNV) | payer OTHER, SELFPAY | PROVIDERS: Visit Provider Radiology Diagnostic Radiology | DX: M51.35 Other intervertebral disc degeneration, thoracolumbar region (principal) | CPT/HCPCS: 72100 ==

== ENCOUNTER 2025-06-12 09:53 | Outpatient (REF) | payer OTHER, SELFPAY ==
--- NOTE | ~2025-06-12 | XR_ITS ---
EXAMINATION: XR CHEST CLINICAL INFORMATION: cough and SOB COMPARISON: X-ray 07/16/2022 TECHNIQUE: 2 views of the chest were obtained. FINDINGS: The cardiomediastinal silhouette is within normal limits. The lungs are well expanded. There is no focal consolidation, edema, or effusion. No pneumothorax. No acute osseous abnormality. Mild spondylosis of thoracic spine. XR/XR chest 2V IMPRESSION: No evidence of focal consolidation. Electronically signed by: Alok Villegas MD 06/12/2025 10:34 AM NICH[facility]
--- OUTSIDE RECORDS SUMMARY | 2025-06-12 09:20 | XMS_ITS | Encounter Summary ---
Author Organization [employer] Address [address] [place] [address] Care Team Providers Care Photography Manager Name Role Phone Tiff Tang MD Primary Care Provide r Encounter Details Date Type Department Care Team ([facility] st Contact Info) Description 06/12/2025 9:20 AM EST Office Visit [facility] [address] [place] [address] Moderate persistent asthma with acute exacerbation (Primary Dx); Moderate persistent asthma without complication; Acute cough Social History Tobacco Use Types Packs/Day Years Used Date Smoking Tobacco: Never Passive Smoke Exposure: Never Smokeless Tobacco: Never Alcohol Use Standard Drinks/Week Comments Never 0 (1 standard drink = 0.6 oz pur e alcohol) Depression Answer Date Recorded Patient Health Questionnaire-9 Score 7 05/16/2025 Patient Health Questionnaire-9 Score 7 05/16/2025 Last PHQ-9: Questionnaire Data Not on file 1 Housing Stability Answer Date Recorded What is your housing situation today? I have kareen novoa 05/16/[address] you li ve. Do you have problems with any of the following? None of the above 05/16/2025 Food Insecurity Answer Date Recorded Within the past 12 months, y ou worried that your food would run out before you got money to buy more: Never True 05/16/2025 Within the past 12 months,th e food you bought just didn't last and you didn't have enough money to get more: Never True Transportation Answer Date Recorded In the past 12 months, has l ack of transportation kept you from medical appts, meetings, work or from getting things needed for daily living? No 09/07/2023 Utilities Answer Date Recorded In the past 12 months, has t he electric, gas, oil or water company threatened to shut off services in your home? No 05/16/2025 Depression Answer Date Recorded Patient Health Questionnaire-2 Score 1 05/16/2025 Internet Access Answer Date Recorded Internet Access Q1 Yes 05/16/2025 Internet Access Q2 Not on file 05/16/2025 Comments No Sex and Gender Information Value Date Recorded Sex Assigned at Female 05/30/2022 10:14 AM EDT Legal Sex Female 10:14 AM EDT Gender Identity Female 05/30/2022 10:14 AM EDT Sexual Orientation Don't know 05/30/2022 10 :14 AM EDT documented as of this encounter Last Filed Vital Signs Vital Sign Reading Time Taken Comments Blood Pressure 144/82 06/12/2025 9:49 AM EST Pulse 89 06/12/2025 9:21 AM EST Temperature 36.6 C (97.9 F) 06/12/2025 9:21 AM EST Respiratory Rate 20 06/12/2025 9:21 AM EST Oxygen Saturation 99% 06/12/2025 9:21 AM EST Inhaled Oxygen Concentration - - Weight 55.3 kg (122 lb) 06/12/2025 9:21 AM EST Height 149.9 cm (4' 11 ) 06/12/2025 9:21 AM EST Body Mass Index 24.64 06/12/2025 9:21 AM EST documented in this encounter Plan of Treatment Upcoming Encounters Date Type Department Care Team (Late st Contact Info) Description 07/16/2025 10:15 AM EST Office Visit [facility] [address] [place] [address] Tiff Tang MD [address] [place] [address] 08/21/2025 1:00 PM EST Office Visit [facility] [address] [place] [address] Jenny Andrade, OD [address] [place] [address] documented as of this encounter Goals Goal Patient Goal Type Associated Problems Recent Progress Patient-Stated? Author Help patients manage their type 2 diabetes Care Plan Help patients manage their type 2 diabetes Arabella Chicas MA Weekly blood pressure task Care Plan Weekly blood pressure task No Arabella Perez MA Help patients manage their type 2 diabetes Care Plan Help patients manage their type 2 diabetes Arabella Chicas MA Patient has chronic kidney disease Care Plan Patient has chronic kidney disease Arabella Chicas MA Weekly blood pressure task Care Plan Weekly blood pressure task No Arabella Perez MA Patient has chronic kidney disease Care Plan Patient has chronic kidney disease No Arabella Perez MA documented as of this encounter Procedures Procedure Name Priority Date/Time Associated Diagnosis Comments XR CHEST 2 VIEWS STAT 06/12/2025 10:1 6 AM EST Moderate persistent asthma with acute exacerbation documented in this encounter Results * XR Chest 2 Views (06/12/2025 10:16 AM EST) Anatomical Region Laterality Modality Chest Radiographic Caroline ging 06/12/2025 10:1 6 AM EST Narrative 06/12/2025 10:37 AM EST [address] [address] XRay Report Signed Patient: Ary Ayala MR#: [id number] : 1945 Acct:[id number] Age/Sex: 80 / F ADM Date: 06/12/25 Loc: [facility] Attending Dr: Alida Edward DO Ordering Physician: Alida Edward DO Date of Service: 06/12/25 Procedure(s): XR chest 2V Accession Number(s): [id number] cc: Alida Edward DO Reason for Exam: cough and SOB EXAMINATION: XR CHEST CLINICAL INFORMATION: cough and SOB COMPARISON: X-ray 07/16/2022 TECHNIQUE: 2 views of the chest were obtained. FINDINGS: The cardiomediastinal silhouette is within normal limits. The lungs are well expanded. There is no focal consolidation, edema, or effusion. No pneumothorax. No acute osseous abnormality. Mild spondylosis of thoracic spine. XR/XR chest 2V IMPRESSION: No evidence of focal consolidation. Electronically signed by: Alok Villegas MD 06/12/2025 10:34 AM EST RP Dictated By: Alok Villegas MD Signed By: <Electronically signed by Alok Villegas MD in OV> 06/12/25 1034 DD/ 1016 TD/TT: 06/12/25 1018 Practice Business Asst: MARGARET Procedure Note Donotuseinterpreter, Image - 06/12/[address] [address] XRay Report Signed Patient: Ary Ayala MMR#: [id number] : 5Acct:[id number] Age/Sex: 80 / FADM Date: 06/12/25 [facility]: Alida Edward DO Ordering Physician: Alida Edward DO Date of Service: 06/12/25 Procedure(s): XR chest 2V Accession Number(s): [id number] cc: Alida Edward DO Reason for Exam: cough and SOB EXAMINATION: XR CHEST CLINICAL INFORMATION: cough and SOB COMPARISON: X-ray 07/16/2022 TECHNIQUE: 2 views of the chest were obtained. FINDINGS: The cardiomediastinal silhouette is within normal limits. The lungs are well expanded. There is no focal consolidation, edema, or effusion. No pneumothorax. No acute osseous abnormality. Mild spondylosis of thoracic spine. XR/XR chest 2V IMPRESSION: No evidence of focal consolidation. Electronically signed by: Alok Villegas MD 06/12/2025 10:34 AM EST RP Dictated By: Alok Villegas MD Signed By: <Electronically signed by Alok Villegas MD in OV> 06/12/25 1034 DD/ 1016 TD/TT: 06/12/25 1018 Practice Business Asst: MARGARET us Alida Edward DO IMG XR PROCEDURES Final Resu lt documented in this encounter Visit Diagnoses Diagnosis Moderate persistent asthma with acute exacerbation- Primary Moderate persistent asthma without complication Acute cough documented in this encounter Additional Health Concerns Active Problems Noted Date Diagnosed Date Help patients manage their type 2 diabetes 06/12 Weekly blood pressure task 06/12/2025 Help patients manage their type 2 diabetes 06/12 Patient has chronic kidney disease 06/12/2025 Weekly blood pressure task 06/12/2025 Patient has chronic kidney disease 06/12/2025 Assessment Noted Time PHQ-9 Depression Total Score: 7 05/16/20 25 10:21 AM EDT documented as of this encounter Care Teams Photography Manager Relationship Specialty Start Date End Date Tiff Tang MD [address] [place] [phone] PCP - General Family Medicine 02/24/22 documented as of this encounter
--- OUTSIDE RECORDS SUMMARY | 2025-06-12 11:40 | XMS_ITS | Encounter Summary ---
Author Organization [employer] Address [address] 7t [place] [address] Care Team Providers Care Visualizer Name Role Phone Tiff Tang MD Primary Care Provide r Encounter Details Date Type Department Care Team ([facility] st Contact Info) Description 10/07/2024 Orders Only [facility] [address] [place], [place] [phone] Tiff Tang MD [address] [place], [place] [phone] Primary osteoarthritis involving multiple joints (Primary Dx) Social History Tobacco Use Types Packs/Day Years Used Date Smoking Tobacco: Never Passive Smoke Exposure: Never Smokeless Tobacco: Never Alcohol Use Standard Drinks/Week Comments Never 0 (1 standard drink = 0.6 oz pur e alcohol) Depression Answer Date Recorded Patient Health Questionnaire-9 Score 0 04/29/2024 Patient Health Questionnaire-9 Score 0 04/29/2024 Last PHQ-9: Questionnaire Data Not on file 0 04/29/2024 Housing Stability Answer Date Recorded What is your housing situation today? I have kareenlesly novoa 05/17/[address] you li ve. Do you have problems with any of the following? None of the above 05/17/2023 Food Insecurity Answer Date Recorded Within the past 12 months, y ou worried that your food would run out before you got money to buy more: Never True 05/17/2023 Within the past 12 months,th e food [...] shut off services in your home? No 05/17/2023 Depression Answer Date Recorded Patient Health Questionnaire-2 Score 0 04/29/2024 Comments Unknown Sex and Gender Information Value Date Recorded Sex Assigned at Female 05/30/2022 10:14 AM EDT Legal Sex Female 10:14 AM EDT Gender Identity Female 05/30/2022 10:14 AM EDT Sexual Orientation Don't know 05/30/2022 10 :14 AM EDT documented as of this encounter Plan of Treatment Upcoming Encounters Date Type Department Care Team (Late st Contact Info) Description 07/16/2025 10:15 AM EST Office Visit [facility] [address] [place] [address] Tiff Tang MD [address] [place] [address] 08/21/2025 1:00 PM EST Office Visit [facility] [address] [place], [place] [phone] Jenny Andrade, OD [address] [place] [address] documented as of this encounter Visit Diagnoses Diagnosis Primary osteoarthritis involving multiple joints- Primary documented in this encounter Additional Health Concerns Assessment Noted Time PHQ-9 Depression Total Score: 0 04/29/20 24 2:26 PM EDT documented as of this encounter Care Teams Visualizer Relationship Specialty Start Date End Date Tiff Tang MD [address] [place] [phone] PCP - General Family Medicine 02/24/22 documented as of this encounter
--- OUTSIDE RECORDS SUMMARY | 2025-06-12 11:40 | XMS_ITS | Patient Health Record ---
Author Organization [facility] Address [address] [place] [address] Care Team Providers Care Tail Trimmer Name Role Phone Tiff Atwood M.D. Primary Care Provider Pavan Benitez [phone] Allergies Allergen (clinical drug ingredient) Drug/Non Drug Allergy documented on EMR Reaction Allergy Type Onset Date Status acetaminophen / oxycodone Percocet Unknown Drug Allergy Active IVP Contrast Dye (uncoded) Unknown Allergy Active Reason For Referral No Information Medications Medication SIG (Take, Route, Frequency, Duration) Notes Start Date End Date Status Aspir-81 81mg Active Fioricet 50-325-40mg Active ZyrTEC 10mg Active Xanax 2mg Active MiraLax (colon prep) 17 GM/SCOOP 1 238 Gm bottle mixed with Gatorade or Crystal Light Orally begin at 5:00 p.m. the day before the procedure; Duration: 1 day 02/26/2023 Active Calcium + D 600mg Ac tive Dilantin 100mg Activ e Lisinopril 5mg Activ e OXcarbazepine 600mg Active ProAir HFA 90mcg Act elmer Metamucil 30.9 % 1 tablespoon in 8 ou nces of water Orally QD-BID for constipation; Duration: 30 days 01/02/2013 Active Flonase 0.05% Active metFORMIN HCl 750mg Active Albuterol Sulfate 0.083% Active Folic Acid 1mg Activ e Omeprazole 20 MG TOME SHIRA CAPSULA EN LA MANANA; Duration: 30 12/02/2013 Active Multi Vitamin/Minerals Active traMADol HCl 50mg Ac tive Dulcolax (colon prep) 5 MG take at 3:00 p.m and 7:00p.m. Orally two tablets twice a day for one day; Duration: 1 day 02/26/2023 Active oxyBUTYnin Chloride 15mg Active Atorvastatin Calcium 80mg Active clonazePAM 0.5mg Act elmer Meclizine HCl 25mg A ctive Tylenol 500mg Active Immunizations Vaccine Route Administration Date Status Comme nts Influenza Unknown 05/17/2022 Administered Problems Problem Type SNOMED Code ICD Code Onset Dates Problem Status W/U Status Risk Notes Problem Diverticular disease of colon (064079210) Diverticulosis of large intestine without perforation or abscess without bleeding (K57.30) Active confirmed Problem Computed tomography result abnormal (884545254) Abnormal CT scan, colon (R93.3) Active confirmed Problem Gastritis (1297832) Gastritis (K29.70) Active c onfirmed Problem Gastroesophageal reflux disease (089634513) GERD (gastroesophageal reflux disease) (K21.9) Active confirmed Problem Generalized abdominal pain (270454216) Abdominal pain, generalized (R10.84) Active confirmed Problem Gastroesophageal reflux disease (413599575) Gastroesophageal reflux disease, unspecified whether esophagitis present (K21.9) Active confirmed Plan Of Treatment Pending Test Test Name Order Date CLOSTRIDIUM DIFF TOXIN A&B (C DIFF) 08/2011 STOOL WBC 06/01/2012 OVA & PARASITES (O&P) 06/01/2012 CULTURE, STOOL 06/01/2012 US ABD 02/22/2023 Pathology 05/17/2023 Future Test Test Name Order Date UPPER GI ENDOSCOPY 07/28/2011 COLONOSCOPY 07/28/2011 UPPER GI ENDOSCOPY 02/22/2023 COLONOSCOPY 02/22/2023 Insurance Providers Payer Name Payer Address Payer Phone Subscriber Number Group Number Insured Name Patient Relationship to Insured Coverage Start Date Coverage End Date [facility] [address] Attn Claims AYDIN Juarez [id number] DON MCCLENDON Self - patient is the insured Medical (General) History Medical History History ICD Code NIDDM Hyperlipidemia Gastroesophageal reflux-tiny area of Beauchamp's esophagus, without dysplasia, seen on EGD in 08/2011 Colon polyps-tubular adenoma s removed in 2005; had a negative colonoscopy in 08/2011 Seizure disorder Asthma Depression Urinary incontinence Denies any history of DC or stroke Gastritis, with associated H .pylori, on EGD in 08/2011-has not required treatment C. difficile infection Kidney stones Surgical History Surgery Date(Month/Year) Bladder suspension Hysterectomy Foot surgery
--- OUTSIDE RECORDS SUMMARY | 2025-06-12 11:40 | XMS_ITS | Encounter Summary ---
Author Organization [employer] Address [address] [place] [address] [address] [place] [address] Care Team Providers Care Public Information Director Name Role Phone Tiff Tang MD Primary Care Provide r Encounter Details Date Type Department Care Team (Late st Contact Info) Description 07/21/2022 Abstract [facility] [address] [place] [address] Chelsi Silver DDS [address] [place] [address] Social History Tobacco Use Types Packs/Day Years Used Date Smoking Tobacco: Never Assessed Comments Unknown Sex and Gender Information Value Date Recorded Sex Assigned at Female 05/30/2022 10:14 AM EDT Legal Sex Female 10:14 AM EDT Gender Identity Female 05/30/2022 10:14 AM EDT Sexual Orientation Don't know 05/30/2022 10 :14 AM EDT COVID-19 Exposure Response Date Recorded In the last 10 days, have yo u been in contact with someone who was confirmed or suspected to have Coronavirus/COVID-19? No / Unsure 07/04/2022 7:39 AM EST documented as of this encounter Plan of Treatment Upcoming Encounters Date Type Department Care Team (Late st Contact Info) Description 07/16/2025 10:15 AM EST Office Visit [facility] [address] [place] [address] Tiff Tang MD [address] [place] [address] 08/21/2025 1:00 PM EST Office Visit [facility] [address] [place], [place] [phone] Jenny Andrade, OD [address] [place], [place] [phone] documented as of this encounter Visit Diagnoses Not on filedocumented in this encounter Care Teams Public Information Director Relationship Specialty Start Date End Date Tiff Tang MD [address] [place] [phone] PCP - General Family Medicine 02/24/22 documented as of this encounter
--- OUTSIDE RECORDS SUMMARY | 2025-06-12 11:40 | XMS_ITS | Encounter Summary ---
Author Organization [employer] [facility] Address [address] [place] [address] [address] [place] [address] Care Team Providers Care Internet Marketing Strategist Name Role Phone Tiff Tang MD Primary Care Provide r Encounter Details Date Type Department Care Team (Latest Contact Info) Description 03/03/2022 Abstract [facility] CON[facility] Dental, Provider, DDS Social History Tobacco Use Types Packs/Day Years [...] Description 07/16/2025 10:15 AM EST Office Visit [facility] [address] [place] [address] Tiff Tang MD [address] [place] [address] 08/21/2025 1:00 PM EST Office Visit [facility] [address] [place] [address] Jenny Andrade OD [address] [place] [address] documented as of this encounter Visit Diagnoses Not on filedocumented in this encounter Care Teams Internet Marketing Strategist Relationship Specialty Start Date End Date Tiff Tang MD [address] [place] [address] PCP - General Family Medicine 02/24/22 documented as of this encounter
--- OUTSIDE RECORDS SUMMARY | 2025-06-12 11:40 | XMS_ITS | Clinical Summary ---
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 021 Active multivitamin (Theragran) tablet take 1 tablet by oral route every day with food 013 Active sucralfate (Carafate) 1 GM/10ML suspension Take 10 mL by mouth every 6 (six) hours. 022 Active zoster vaccine-recombina nt adjuvanted (Shingrix) 50 MCG/0.5ML vaccine Inject 0.5 mL into the shoulder, thigh, or buttocks. 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 USE TO CHECK BLOOD SUGAR TWICE A DAY 1 kit 023 Active Blood Glucose Monitoring Suppl (FreeStyle Lite) deviceIndications :Type 2 diabetes mellitus without complication, without long-term current use of insulin (HCC) Use to monitor blood glucose twice daily 1 each 023 Active omeprazole (PriLOSEC) [address] capsuleIndication s:Generalized abdominal pain Take 1 capsule (40 mg) by mouth before breakfast and before evening meal for 14 days. Do not crush or chew. 28 capsule 023 Active ezetimibe (Zetia) 10 MG tabletIndications :Mixed hyperlipidemia TOME SHIRA TABLETA TODOS LOS ODOM 90 tablet 1 023 Active fluticasone (Flovent HFA) 44 MCG/ACT inhalerIndication s:Moderate persistent asthma without complication TOME DOS INHALACIONES POR VIA ORAL DOS VECES AL JESUS 31.8 g 1 023 Active Calcium Carb-Cholecalcife rol 500-10 MG-MCG chewable tabletIndications :Osteopenia, unspecified location TOME SHIRA TABLETA DOS VECES AL JESUS 180 tablet 023 Active Blood Glucose Monitoring Suppl (ONE TOUCH ULTRA 2) w/Device kit USE TO TEST BLOOD SUGAR TWICE A DAY 1 kit 023 Active hydrOXYzine HCl (Atarax) 25 MG tabletIndications :Rash Take 1 tablet (25 mg) by mouth every 8 (eight) hours if needed for itching for up to 10 days. 20 tablet 023 Active amLODIPine (Norvasc) 5 MG tabletIndications :Benign hypertension TAKE 1 TABLET BY MOUTH EVERY MORNING 90 tablet 1 024 Active FREESTYLE LITE test stripIndications: Type 2 diabetes mellitus with hyperglycemia, without long-term current use of insulin (HCC) Use to test blood sugar 1 time daily 100 each 12 025 2025 Active triamcinolone (Kenalog) 0.1 % creamIndications: Rash Apply topically 2 times daily. 30 g 025 Active baclofen (Lioresal) 10 MG tablet Take 0.5 tablets (5 mg) by mouth if needed in the morning, at noon, and at bedtime for muscle spasms. 30 tablet 1 025 Active Diclofenac Sodium 1 % gel Apply 2 g topically if needed in the morning, at noon, in the evening, and at bedtime (pain). 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 30 tablet 11 025 2025 Active acetaminophen (Tylenol Extra Strength) 500 MG tabletIndications :Chronic bilateral low back pain without sciatica Take 2 tablets (1,000 mg) by mouth if needed in the morning and at bedtime for moderate pain. 30 tablet 1 025 2025 Active lidocaine (Lidoderm) 5 % patchIndications: Chronic bilateral low back pain without sciatica Apply topically to affected areas. Leave on for up to 12 hours 30 patch 1 025 Active FreeStyle lancetsIndication s:Type 2 diabetes mellitus with hyperglycemia, without long-term current use of insulin (HCC) 1 each by Other route Once per day. TEST BLOOD SUGAR ONCE DAILY 100 each 3 025 Active lisinopril 40 MG tabletIndications :Benign hypertension TAKE 1 TABLET BY MOUTH EVERY DAY 90 tablet 1 025 Active cetirizine (ZyrTEC) 5 MG tablet TAKE 1 TABLET BY MOUTH ONCE PER DAY 90 tablet 1 025 Active predniSONE (Deltasone) 20 MG tablet Take 2 tabs PO daily x 4 days then take 1 tab daily x 4 days then take 1/2 tab daily x 4 days 14 tablet 025 Active azithromycin (Zithromax) 250 MG tablet Take 2 tabs PO daily once then take 1 tab PO daily x 4 days 6 tablet 025 Active benzonatate (Tessalon Perles) 100 MG capsule Take 1 capsule (100 mg) by mouth if needed in the morning, at noon, and at bedtime for cough for up to 10 days. Do not crush or chew. 30 capsule 11/13/2 025 2024 Active fluticasone (Flonase) 50 MCG/ACT nasal sprayIndications: Moderate persistent asthma without complication Administer 1 spray into each nostril every 12 (twelve) hours. 16 mL 3 025 Active budesonide-formot janie (Symbicort) 80-4.5 MCG/ACT inhaler Inhale 2 puffs in the morning and at bedtime. Rinse mouth with water after use to reduce aftertaste and incidence of candidiasis. Do not swallow. 1 each 11 025 2025 Active albuterol (2.5 MG/3ML) 0.083% nebulizer solutionIndicatio ns:Moderate persistent asthma without complication,Acut e cough Take 3 mL (2.5 mg) by nebulization every 4 (four) hours if needed for wheezing or shortness of breath. 75 mL 1 025 2025 Active albuterol (ProAir HFA) 108 (90 Base) MCG/ACT inhalerIndication s:Moderate persistent asthma without complication Inhale 2 puff using inhaler four times a day as needed 18 g 1 025 Active albuterol (ProAir HFA) 108 (90 Base) MCG/ACT inhalerIndication s:Moderate persistent asthma without complication Inhale 2 puff using inhaler four times a day as needed 18 g 1 023 2024 Discontinued(R eorder (will not trigger notification to Pharmacy)) fluticasone (Flonase) 50 MCG/ACT nasal sprayIndications: Moderate persistent asthma without complication ADMINISTER 1 SPRAY INTO EACH NOSTRIL EVERY 12 (TWELVE) HOURS. 16 mL 1 023 2024 Discontinued(R eorder (will not trigger notification to Pharmacy)) albuterol (2.5 MG/3ML) 0.083% nebulizer solutionIndicatio ns:Acute cough,Moderate persistent asthma without complication Take 3 mL (2.5 mg) by nebulization every 4 (four) hours if needed for wheezing. 75 mL 3 024 2024 Discontinued(R eorder (will not trigger notification to Pharmacy)) Lancets miscIndications:T ype 2 diabetes mellitus with hyperglycemia, without long-term current use of insulin (HCC) Use to test blood sugar 1 time daily 100 each 2 025 2024 Discontinued lisinopril 40 MG tabletIndications :Benign hypertension TAKE 1 TABLET BY MOUTH EVERY DAY 90 tablet 1 025 2024 Discontinued cetirizine (ZyrTEC) 5 MG tablet TAKE 1 TABLET BY MOUTH ONCE PER DAY 90 tablet 1 025 2024 Discontinued acetaminophen (Tylenol 8 Hour) 650 MG ER tablet Take 1 tablet (650 mg) by mouth every 8 (eight) hours if needed for mild pain. Do not crush, chew, or split. 60 tablet 2 025 2024 Discontinued(M ed list cleanup (will not trigger notification to Pharmacy)) Active Problems Problem Noted Date Diagnosed Date Primary osteoarthritis involving multiple joints 10/07/2024 Bloating 09/09/2024 Assessment & Plan (09/09/2024 4:41 PM EST): Extensive counseling about diet done today I advised to take probiotics every day UTI symptoms 04/29/2024 Kidney stone 12/11/2023 Hair loss 11/07/2023 Colitis 07/12/2023 Assessment & Plan (07/12/2023 11:17 AM EST): In light patient has recurrent pain in spite of pain medications, rest and fluids, I will give her today 7 days of antibiotics, please call back or go to ED if abdominal pain persist or worse Patient will also f/u with GI Rash 06/19/2023 Assessment & Plan (06/19/2023 11:18 AM EST): Scabies? Type 2 diabetes mellitus wit h hyperglycemia, without long-term current use of insulin 12/27/2022 Assessment & Plan (09/09/2024 4:40 PM EST): Diabetes is: not controlled but improved - Lab Results Component Value Date HGBA1C 7.7 (A) 09/09/2024 HGBA1C 8.1 (A) 04/29/2024 HGBA1C 7.7 (A) 11/07/2023 - Lab Results Component Value Date MICROALBUR 4.6 03/16/2021 CREATININE 0.64 12/11/2023 -Changes: None - Diabetic eye exam: Up-to-date - Diabetic foot exam: Pending - Continue lifestyle modifications - Continue current medications - Follow up: 3 months Assessment & Plan (11/07/2023 11:54 AM EDT): Diabetes is: almost at goal - Lab Results Component Value Date HGBA1C 7.7 (A) 11/07/2023 HGBA1C 7.8 (A) 06/19/2023 HGBA1C 7.3 (A) 03/10/2023 - Lab Results Component Value Date MICROALBUR 4.6 03/16/2021 CREATININE 0.78 10/12/2023 -Changes: none - Diabetic eye exam:up to date - Diabetic foot exam:pending - Continue lifestyle modifications - Continue current medications - Follow up: 3 months Assessment & Plan (09/14/2023 1:46 PM EST): Diabetes is: not controlled - Lab Results Component Value Date HGBA1C 7.8 (A) 06/19/2023 HGBA1C 7.3 (A) 03/10/2023 HGBA1C 7.3 (A) 12/27/2022 - Lab Results Component Value Date MICROALBUR 4.6 03/16/2021 CREATININE 0.85 07/01/2023 -Changes: none - Diabetic eye exam:up to date - Diabetic foot exam:pending - Continue lifestyle modifications - Continue current medications - Follow up: 3 months Assessment & Plan (07/12/2023 11:18 AM EST): - Lab Results Component Value Date HGBA1C 7.8 (A) 06/19/2023 HGBA1C 7.3 (A) 03/10/2023 HGBA1C 7.3 (A) 12/27/2022 - Lab Results Component Value Date MICROALBUR 4.6 03/16/2021 CREATININE 0.85 07/01/2023 - Continue lifestyle modifications - Continue current medications Assessment & Plan (06/19/2023 11:17 AM EST): - Lab Results Component Value Date HGBA1C 7.8 (A) 06/19/2023 HGBA1C 7.3 (A) 03/10/2023 HGBA1C 7.3 (A) 12/27/2022 - Lab Results Component Value Date MICROALBUR 4.6 03/16/2021 CREATININE 0.55 (L) 12/27/2022 - Continue lifestyle modifications - Continue current medications - Assessment & Plan (03/10/2023 4:16 PM EDT): - Lab Results Component Value Date HGBA1C 7.3 (A) 03/10/2023 HGBA1C 7.3 (A) 12/27/2022 HGBA1C 7.5 (H) 03/16/2021 - Lab Results Component Value Date MICROALBUR 4.6 03/16/2021 CREATININE 0.55 (L) 12/27/2022 - - Continue lifestyle modifications - Continue current medications Generalized abdominal pain 09/16/2022 Assessment & Plan (06/19/2023 11:16 AM EST): Continue to follow with GI Assessment & Plan (03/10/2023 4:16 PM EDT): Continue to follow with GI Assessment & Plan (12/27/2022 10:32 AM EDT): Patient has being going to emergency department due to this problem, reports last medication prescribed dicyclomine did helped her a little, she has upcoming appointment with Dr Demarco it was advise not to miss it Assessment & Plan (09/16/2022 12:35 PM EST): Referral sent to Dr. Demarco (gastro) at [facility]. He is aware that this patient is coming. F/up: RTC PRN if symptoms worsen of fail to improve. 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 Initial goal of 30 min walk 3-5x/week. Increase as tolerated. - low-sodium diet (goal: <2g/day) and heart healthy diet such as DASH to reduce BP and prevent ASCVD. - Home BP monitoring 1-2 x day with goal of <140/90. - Seek immediate medical attention for chest pain, palpitations, SOB, syncope, or sudden changes in mental status. - Do not change or discontinue current prescriptions without first consulting health care provider Assessment & Plan (11/07/2023 11:55 AM EDT): Maintenance: BMP: up to date Lipid Panel: up to date ASCVD Risk: high she is on atorvastain 80mg, ezatimibe and aspirin - Aerobic exercise to reduce BP. Initial goal of 30 min walk 3-5x/week. Increase as tolerated. - low-sodium diet (goal: <2g/day) and heart healthy diet such as DASH to reduce BP and prevent ASCVD. - Home BP monitoring 1-2 x day with goal of <140/90. - Seek immediate medical attention for chest pain, palpitations, SOB, syncope, or sudden changes in mental status. - Do not change or discontinue current prescriptions without first consulting health care provider Assessment & Plan (09/14/2023 1:45 PM EST): Maintenance: BMP: up to date Lipid Panel: up to date ASCVD Risk: high on atorvastatin mg, ASA 81mg and zetia 10mg daily - Aerobic exercise to reduce BP. Initial goal of 30 min walk 3-5x/week. Increase as tolerated. - low-sodium diet (goal: <2g/day) and heart healthy diet such as DASH to reduce BP and prevent ASCVD. - Home BP monitoring 1-2 x day with goal of <140/90. - Seek immediate medical attention for chest pain, palpitations, SOB, syncope, or sudden changes in mental status. - Do not change or discontinue current prescriptions without first consulting health care provider Assessment & Plan (07/12/2023 11:16 AM EST): - Aerobic exercise to reduce BP. Initial goal of 30 min walk 3-5x/week. Increase as tolerated. - low-sodium diet (goal: <2g/day) and heart healthy diet such as DASH to reduce BP and prevent ASCVD. - Home BP monitoring 1-2 x day with goal of <140/90. - Seek immediate medical attention for chest pain, palpitations, SOB, syncope, or sudden changes in mental status. - Do not change or discontinue current prescriptions without first consulting health care provider Assessment & Plan (06/19/2023 11:17 AM EST): Today she did not took her medication I advise not to miss any dose Assessment & Plan (03/10/2023 4:15 PM EDT): - Aerobic exercise to reduce BP. Initial goal of 30 min walk 3-5x/week. Increase as tolerated. - low-sodium diet (goal: <2g/day) and heart healthy diet such as DASH to reduce BP and prevent ASCVD. - Home BP monitoring 1-2 x day with goal of <140/90. - Seek immediate medical attention for chest pain, palpitations, SOB, syncope, or sudden changes in mental status. - Do not change or discontinue current prescriptions without first consulting health care provider Assessment & Plan (12/27/2022 10:33 AM EDT): Maintenance: BMP: ordered today Lipid Panel: ordered today ASCVD Risk: patient already on statin and ezetimibe/asirin is on hold due to stomach problems - Aerobic exercise to reduce BP. Initial goal of 30 min walk 3-5x/week. Increase as tolerated. - low-sodium diet (goal: <2g/day) and heart healthy diet such as DASH to reduce BP and prevent ASCVD. - Home BP monitoring 1-2 x day with goal of <140/90. - Seek immediate medical attention for chest pain, palpitations, SOB, syncope, or sudden changes in mental status. - Do not change or discontinue current prescriptions without first consulting health care provider Depressive disorder 07/31/1959 Hyperlipidemia 07/31/1959 Orthostatic hypotension 07/31/1959 Urinary incontinence, mixed 07/31/1959 Encounters Date Type Department Care Team Description 06/12/2025 9:20 AM EST Office Visit [facility] [address] [place] [id number] Moderate persistent asthma with acute exacerbation (Primary Dx); Moderate persistent asthma without complication; Acute cough 06/11/2025 Refill [facility] [address] [place] [id number] Tiff Tang MD 05/29/[address] [address] Tiff Tang MD Benign hypertension [address] [address] Tiff Tang MD Type 2 diabetes mellitus with hyperglycemia, without long-term current use of insulin (HCC) 05/16/2025 10:15 AM EDT Office Visit [address] [address] [facility] Chronic bilateral low back pain without sciatica (Primary Dx); Type 2 diabetes mellitus with hyperglycemia, without long-term current use of insulin (HCC); Encounter for immunization 05/16/2025 Travel 05/15/[address] [address] Tiff Tang MD chart prep 04/18/2025 2:15 PM EDT Office Visit [address] [address] Radha Pacheco MD Lentigo (Primary Dx) 04/18/2025 Travel 04/14/[address] [address] Tiff Tang MD Appointment Request 03/26/[address] [place] [address] Tiff Tang MD Benign hypertension 03/17/2025 Refill [facility] [address] [place] [address] Tiff Tang MD Type 2 diabetes mellitus with other specified complication, unspecified whether 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) from Last 3 Months Immunizations Immunization Administration Dates Next Due Hep B, Adolescent or Pediatric 08/17/2011,2010,10/16/2010 Influenza High-dose Quadriva lent Preservative Free 05/22/2023,05/06/2022 Influenza Quadrivalent Adjuvanted 05/04/2021, Influenza injectable quadriv alent IIV4 with preservative 05/02/2016 Influenza, High Dose Seasona l, Preservative Free 05/16/2025,04/29/2024,05/08/2018,04/13,05/05/2017,05/02/2016 Influenza, IIV3, injectable 05/17/2022, 1 Influenza, Split (incl. buddy fied surface antigen) 05/01/2013,04/19/2012 Influenza, trivalent, adjuvanted 04/12/2019 Pfizer Covid-19 Vaccine 12+ 09/14/2023, 1 Pneumococcal Conjugate PCV 20 12/27/2022 Pneumococcal Polysaccharide PPSV23 05/02,09/21/2012,02/21/2012,04/11 TD (adult), 2 Lf tetanus tox oid, preservative free, adsorbed 04/15/2011,10/13/2000 Td (adult), 5 Lf tetanus tox oid, preservative free, adsorbed 05/16/2019 Zoster, Recombinant 03/17/2023,01/13/2023 Social History Tobacco Use Types Packs/Day Years Used Date Smoking Tobacco: Never Passive Smoke Exposure: Never Smokeless Tobacco: Never Tobacco Cessation:Counseling Given: Not Answered Alcohol Use Standard Drinks/Week Comments Never 0 (1 standard drink = 0.6 oz pur e alcohol) Depression Answer Date Recorded Patient Health Questionnaire-9 Score 7 05/16/2025 Patient Health Questionnaire-9 Score 7 05/16/2025 Last PHQ-9: Questionnaire Data Not on file 1 Housing Stability Answer Date Recorded What is your housing situation today? I have akreen novoa 05/16/[address] you [...] Don't know 05/30/2022 10 :14 AM EDT Last Filed Vital Signs Vital Sign Reading [...] Mass Index 24.64 06/12/2025 9:21 AM EST Plan of Treatment Upcoming Encounters Date Type Department Care Team (Late st Contact Info) Description 07/16/2025 10:15 AM EST Office Visit [facility] [address] [place] [address] Tiff Tang MD [address] [place] [address] 08/21/2025 1:00 PM EST Office Visit [facility] [address] [place] [address] Raymond, Jenny, OD [address] [place] [address] Health Maintenance Due Date Last Done Comments Dental Oral Exam 1945 Dental Prophylaxis 1945 Dental X-Ray: Bitewings 1945 Dental X-Ray: Full Mouth 1945 Diabetes: Foot Exam 1955 Alcohol/Substance Use Screening 1957 DTaP/Tdap/Td Vaccines (1 - Tdap) 05/17/2019 05/16/2019, 04/15/2011, 10/13/2000 RSV Patients and Patients Aged 60 years or older (1 - 1-dose 75+ series) 2020 Diabetes: Urine Protein Screening 12/28/2023 12/27/2022, 03/16/2021 Lipid Panel 12/28/2023 12/27/2022, 03/16/2021 SDOH Screening 09/07/2024 09/07/2023 COVID-19 Vaccine ( season) 2025 09/14/2023, 06/10/2021 Diabetes: Hemoglobin A1C 08/16/2025 025, 09/09/2024, 04/29/2024, Additional history exists Depression Screening 05/16/2026 05/16/2025, 05/16/20 25 Tobacco Screening 06/12/2026 06/12/2025 Eye Exam 07/18/2026 07/18/2024, 06/30, 07/18/2024, Additional history exists Hepatitis B Vaccines Aged Out 08/17/2011, 01/26/2011, 10/16/2010 No longer eligible based on patient's age to complete this topic Pneumococcal Vaccine: 50+ Years Completed 12/27/2022, 05/02/2016, 09/21/2012, Additional history exists Zoster Vaccines Completed 03/17/2023, 01/13/2023 Influenza Vaccine Completed 05/16/2025, , 05/22/2023, Additional history exists HIB Vaccines Aged Out No longer eligi [...] patient's age to complete this topic Meningococcal Vaccine Aged Out No sal viridiana eligible based on patient's age to complete this topic RSV under 20 months Aged Out No longe r eligible based on patient's age to complete this topic Rotavirus Vaccines Aged Out No longer eligible based on patient's age to complete this topic Goals Goal Patient Goal Type Associated Problems Recent Progress Patient-Stated? Author Help patients manage their type 2 diabetes Care Plan Help patients manage their type 2 diabetes Arabella Chicas MA Weekly blood pressure task Care Plan Weekly blood pressure task Arabella Chicas MA Help patients manage their type 2 diabetes Care Plan Help patients manage their type 2 diabetes Arabella Chicas MA Patient has chronic kidney disease Care Plan Patient has chronic kidney disease No Arabella Perez MA Weekly blood pressure task Care Plan Weekly blood pressure task Arabella Chicas MA Patient has chronic kidney disease Care Plan Patient has chronic kidney disease No Arabella Perez MA Procedures Procedure Name Priority Date/Time Associated Diagnosis Comments XR CHEST 2 VIEWS STAT 06/12/2025 10:1 6 AM EST Moderate persistent asthma with acute exacerbation POCT GLYCATED HEMOGLOBIN, TOTAL Routine 05/16/2025 10:23 AM EDT Type 2 diabetes mellitus with hyperglycemia, without long-term current use of insulin (HCC) POCT GLUCOSE Routine 05/16/2025 10:22 AM EDT Type 2 diabetes mellitus with hyperglycemia, without long-term current use of insulin (HCC) ALBUMIN, RANDOM URINE W/O CREATININE Routine 12/27/2022 10:43 AM EDT Type 2 diabetes mellitus with hyperglycemia, without long-term current use of insulin (CMS/HCC) LIPID PANEL, STANDARD Routine 12/27/2022 10:43 AM EDT Type 2 diabetes mellitus with hyperglycemia, without long-term current use of insulin (CMS/HCC) from Last 3 Months or Most Recently Relevant to Health Maintenance Results * XR Chest 2 Views (06/12/2025 10:16 AM EST) Anatomical Region Laterality Modality Chest Radiographic Caroline ging 06/12/2025 10:1 6 AM EST Narrative 06/12/2025 10:37 [place] [address] XRay Report Signed Patient: Ary Ayala MR#: [id number] : 1945 Acct:[id number] Age/Sex: 80 / F ADM Date: 06/12/25 Loc: [facility] Attending Dr: Alida Edward DO Ordering Physician: Alida Edward DO Date of Service: 06/12/25 Procedure(s): XR chest 2V Accession Number(s): [id number] cc: Alida Edward DO Reason for Exam: [...] 06/12/25 1034 DD/ 1016 TD/TT: 06/12/25 1018 Fashion Director: MARGARET Procedure Note Donotuseinterpreter, Image - 06/12/[address] [address] XRay Report Signed Patient: Ary Ayala MMR#: [id number] : 5Acct:[id number] Age/Sex: 80 / FADM Date: 06/12/25 [facility]: Alida Edward DO Ordering Physician: Alida Edward DO Date of Service: 06/12/25 Procedure(s): XR chest 2V Accession Number(s): [id number] cc: Alida Edward DO Reason for Exam: [...] 06/12/25 1034 DD/ 1016 TD/TT: 06/12/25 1018 Fashion Director: MARGARET Alida Edward DO IMG XR PROCEDURES Final Resu lt * (ABNORMAL) POCT Hgb A1c (05/16/2025 10:23 AM EDT) Hemoglobin A1C 7.4(A) 4.0 - 5.7 % Blood 05/16/2025 10:2 3 AM EDT Result [facility] POINT OF CARE TEST ENTER/EDIT ORDERABLES Final Result * (ABNORMAL) POCT Glucose (05/16/2025 10:22 AM EDT) [facility] Glucose Blood, POC 222(A) 60 - 200 mg/dL Blood Capillary blood specimen / Unknown 05/16/2025 10:22 AM EDT Result [facility] POINT OF CARE TEST ENTER/EDIT ORDERABLES Final Result * Albumin, Random Urine W/O Creatinine (12/27/2022 10:43 AM EDT) [facility] Albumin, Urine 3.0 See Note: mg/dL [facility] [place] [facility] Comment: Reference Range: Reference Range Not established [facility] [employer] [place] [facility] Diagnostics Comment: The ADA defines abnormalities in albumin excretion as follows: Albuminuria Category Result (mcg/mg creatinine) Normal to Mildly increased <30 Moderately increased 30-299 Severely increased > OR = 300 The ADA recommends that at least two of three specimens collected within a 3-6 month period be abnormal before considering a patient to be within a diagnostic category. Urine Urine specimen obtained by clean catch procedure / Unknown 12/27/2022 10:43 AM EDT 12/27/2022 10:44 AM EDT Narrative [facility] - 12/27/2022 7:29 PM EDT FASTING:NO FASTING: NO Result [facility] iTff Dumont MD LAB URINE ORDERABLES Final Result [facility] [address], [place] [address] [facility] [address] [place] [address] * (ABNORMAL) Lipid Panel, Standard (12/27/2022 10:43 AM EDT) [facility] Signature Cholesterol, Total 147 <200 mg/dL [facility] HDL Cholesterol 59 > OR = 50 mg/dL [facility] Triglycerides 166(H) <150 mg/dL [facility] LDL Cholesterol 64 mg/dL (calc) [facility] Comment: Reference range: <100 Desirable range <100 mg/dL for primary prevention; <70 mg/dL for patients with CHD or diabetic patients with > or = 2 CHD risk factors. LDL-C is now calculated using the Teresa calculation, which is a validated novel method providing better accuracy than the Friedewald equation in the estimation of LDL-C. Willian SS et al. ASHLEY. 2013;310(19): 9453-5475 (http://education.[employer]/faq/EDF600) Chol/HDLC Ratio 2.5 <5.0 (calc) [facility] Non-HDL Cholesterol 88 <130 mg/dL (calc) [facility] Comment: For patients with diabetes plus 1 major ASCVD risk factor, treating to a non-HDL-C goal of <100 mg/dL (LDL-C of <70 mg/dL) is considered a therapeutic option. Blood Venous blood specimen / Unknown 12/27/2022 10:43 AM EDT 12/27/2022 10:44 AM EDT Narrative [facility] - 12/27/2022 7:29 PM EDT FASTING:NO FASTING: NO Tiff Dumont MD LAB BLOOD ORDERABLES Final Result [facility] [address], [place] [address] [facility] [address] [place] [address] from Last 3 Months or Most Recently Relevant to Health Maintenance Additional Health Concerns Active Problems Noted Date Diagnosed Date Help patients manage their type 2 diabetes 06/12 Weekly blood pressure task 06/12/2025 Help patients manage their type 2 diabetes 06/12 Patient has chronic kidney disease 06/12/2025 Weekly blood pressure task 06/12/2025 Patient has chronic kidney disease 06/12/2025 Insurance [facility] ASSISTED OPTIONS (O D-SNP) DENTAL [facility] Care Teams Subgrade Roller Operator Relationship Specialty Start Date End Date Tiff Tang MD [address] [place] [phone] PCP - General Family Medicine 02/24/22
--- OUTSIDE RECORDS SUMMARY | 2025-06-12 11:40 | XMS_ITS | Encounter Summary ---
Author Organization [facility] Address [address] [place] [address] 7[address] [place] [address] Care Team Providers Care Elderly Sitter Name Role Phone Tiff Tang MD Primary Care Provide r Encounter Details Date Type Department Care Team (Late st Contact Info) Description 06/27/[address] [facility] ADULT DENTAL [address] [place] [address] Dental, Provider, DDS Social History Tobacco Use [...] Description 07/16/2025 10:15 AM EST Office Visit [facility] MEDICINE [address] [place] [address] Tiff Tang MD [address] [place] [address] 08/21/2025 1:00 PM EST Office Visit [facility] OPTOMETRY [address] [place] [address] Jenny Andrade, OD [address] [place] [address] documented as of this encounter Procedures Procedure Name Priority Date/Time Associated Diagnosis Comments 21 B(V) AMALGAM FILLING Routine 06/27/2022 12:00 AM EST 20 B(V) AMALGAM FILLING Routine 06/27/2022 12:00 AM EST 11 DL AMALGAM FILLING Routine 06/27/2022 12:00 AM EST 12 MO AMALGAM FILLING Routine 06/27/2022 12:00 AM EST 14 O AMALGAM FILLING Routine 06/27/2022 12:00 AM EST 3 O AMALGAM FILLING Routine 06/27/2022 12:00 AM EST 2 O AMALGAM FILLING Routine 06/27/2022 12:00 AM EST 19 B AMALGAM FILLING Routine 06/27/2022 12:00 AM EST documented in this encounter Visit Diagnoses Not on filedocumented in this encounter Care Teams Elderly Sitter Relationship Specialty Start Date End Date Tiff Tang MD [address] [place] [phone] PCP - General Family Medicine 02/24/22 documented as of this encounter
--- OUTSIDE RECORDS SUMMARY | 2025-06-12 11:40 | XMS_ITS | Clinical Summary ---
Author Organization [employer] [facility] Address [address] [place] [address] Care Team Providers Care Veterans Service Officer Name Role Phone Tara Colby MD Primary Care Provider [phone] Social History Tobacco Use Types Packs/Day Years [...] 04/15/2011, 10/13/2000 Cholesterol Screening (Lipid Panel) 06/29/2022 Falls Risk Assessment 06/29/2022 Osteoporosis Screening (Bone Density Screening) 06/29/2022 Social Influencers of Health Screening 06/29/2022 Diabetes: Annual Urine Albumin-Creatinine Ratio (uACR) 07/16/2022 Diabetes: Blood Sugar Contro l Test (HGBA1C) 07/16/2022 Hypertension/CHF/CAD Annual BMP Blood Test 07/16/2022 Depression Screening 07/31/2024 COVID-19 Vaccine (1 - 2024-2 6 season) 2025 Influenza Vaccine (#1) 2025 Hepatitis B Vaccines Aged Out 08/17/2011, [...] age to complete this topic Care Teams Veterans Service Officer Relationship Specialty Start Date End Date Tara Colby MD [address] [place] [phone] PCP - General 01/16/15
--- OUTSIDE RECORDS SUMMARY | 2025-06-12 11:40 | XMS_ITS | Encounter Summary ---
Author Organization [employer] Address [address] [facility] 7t [place] [address] Care Team Providers Care Labor Gang Supervisor Name Role Phone Tiff Tang MD Primary Care Provide r Encounter Details Date Type Department Care Team ([facility] st Contact Info) Description 06/28/2023 Orders Only [facility] MEDICINE [address] [place] [address] Marisol rCuz MD [address] [place] [address] Social History Tobacco Use Types Packs/Day Years Used Date Smoking Tobacco: Never Passive Smoke Exposure: Never Smokeless Tobacco: Never Alcohol Use Standard Drinks/Week Comments Never 0 (1 standard drink = 0.6 oz pur e alcohol) Housing Stability Answer Date Recorded What is [...] from getting things needed for daily living? Yes, it has kept me from medical appointments or getting medications. 05/09/2023 Utilities Answer Date Recorded In the past 12 months, has t he [employer], [employer], oil or water [employer] threatened to shut off services in your home? No 05/17/2023 Depression Answer Date Recorded Patient Health Questionnaire-2 Score 0 09/16/2022 Comments Unknown Sex and Gender Information Value [...] Description 07/16/2025 10:15 AM EST Office Visit [facility] MEDICINE [address] [place] [address] Tiff Tang MD [address] [place] [address] 08/21/2025 1:00 PM EST Office Visit [facility] OPTOMETRY [address] [place] [address] Jenny Andrade, OD [address] [place] [address] documented as of this encounter Procedures Procedure Name Priority Date/Time Associated Diagnosis Comments MR MRCP Routine 06/28/2023 4:25 PM EST documented in this encounter Results * MR MRCP (06/28/2023 4:25 PM EST) Anatomical Region Laterality Modality Lower Extremities Left Magnetic Reson ance 06/28/2023 4:25 PM EST Narrative 06/28/2023 5:09 PM EST [facility] [address] [place] [address] Magnetic Resonance Report Signed Patient: Ary Raman MR#: [id number] : 1945 Acct:[id number] Age/Sex: 78 / F ADM Date: 06/28/23 Loc: .ED Attending Dr: Ordering Physician: Shaniqua Perdue DO Date of Service: 06/28/23 Procedure(s): MR MRCP Accession Number(s): [id number] cc: Tiff Tang MD; Shaniqua Perdue DO EXAMINATION: MR ABDOMEN WITHOUT CONTRAST CLINICAL INFORMATION: Upper abdominal pain COMPARISON: CT abdomen and pelvis 06/19/1993 TECHNIQUE: MRI of the abdomen without contrast was obtained using routine sequences. Heavily T2 weighted MRCP sequences were also obtained. FINDINGS: LUNG BASES: Unremarkable. ABDOMINAL AND PELVIC WALL: Unremarkable. LIVER AND BILIARY TREE: Common bile duct measures 7 mm which is within normal limits for age. No intrahepatic biliary duct dilatation. No definite intraluminal filling defect to suggest choledocholithiasis however if persistent clinical concern consider correlation with ERCP. GALLBLADDER: No definite intraluminal filling defect to suggest choledocholithiasis however persistent clinical concern consider correlation with ERCP. PANCREAS: Few small 4 mm pancreatic cysts. Pancreatic duct measures 2 mm which is within normal limits. SPLEEN: Spleen is normal in size measuring 6.4 cm in span. ADRENAL GLANDS: Unremarkable. KIDNEYS AND URETERS: Bosniak 1 benign-appearing left upper pole renal cysts. GASTROINTESTINAL TRACT: Unremarkable. VASCULAR: Dilated splenorenal collateral vessels. LYMPH NODES/PERITONEUM: No lymphadenopathy. FREE FLUID: None. OSSEOUS STRUCTURES: Unremarkable. MR/MR MRCP IMPRESSION: 1. Common bile duct measures 7 mm which is within normal limits for age. No intrahepatic biliary duct dilatation. No definite intraluminal filling defect to suggest choledocholithiasis however if persistent clinical concern consider correlation with ERCP. 2. Few small 4 mm pancreatic cysts. Recommend two-year follow-up contrast enhanced MR/MRCP to assess stability. 3. Dilated splenorenal collateral vessels which can be seen in the setting of portal hypertension. Dictated By: Eliana Mayorga MD Signed By: <Electronically signed by Eliana Mayorga MD in OV> 06/28/23 1705 DD/ 1625 TD/TT: Tint Layer: Procedure Note Donotuseinterpreter, Image - 06/28/[address] [address] Magnetic Resonance Report Signed Patient: Ary Raman [facility]#: [id number] : 5Acct:[id number] Age/Sex: 78 / FADM Date: 06/28/23 Loc: HO.ED Attending Dr: Ordering Physician: Shaniqua Perdue DO Date of Service: 06/28/23 Procedure(s): MR MRCP Accession Number(s): [id number] cc: Tiff Tang MD; Shaniqua Perdue DO EXAMINATION: MR ABDOMEN WITHOUT CONTRAST CLINICAL INFORMATION: Upper abdominal pain COMPARISON: CT abdomen and pelvis 06/19/1993 TECHNIQUE: MRI of the abdomen without contrast was obtained using routine sequences. Heavily T2 weighted MRCP sequences were also obtained. FINDINGS: LUNG BASES: Unremarkable. ABDOMINAL AND PELVIC WALL: Unremarkable. LIVER AND BILIARY TREE: Common bile duct measures 7 mm which is within normal limits for age. No intrahepatic biliary duct dilatation. No definite intraluminal filling defect to suggest choledocholithiasis however if persistent clinical concern consider correlation with ERCP. GALLBLADDER: No definite intraluminal filling defect to suggest choledocholithiasis however persistent clinical concern consider correlation with ERCP. PANCREAS: Few small 4 mm pancreatic cysts. Pancreatic duct measures 2 mm which is within normal limits. SPLEEN: Spleen is normal in size measuring 6.4 cm in span. ADRENAL GLANDS: Unremarkable. KIDNEYS AND URETERS: Bosniak 1 benign-appearing left upper pole renal cysts. GASTROINTESTINAL TRACT: Unremarkable. VASCULAR: Dilated splenorenal collateral vessels. LYMPH NODES/PERITONEUM: No lymphadenopathy. FREE FLUID: None. OSSEOUS STRUCTURES: Unremarkable. MR/MR MRCP IMPRESSION: 1. Common bile duct measures 7 mm which is within normal limits for age. No intrahepatic biliary duct dilatation. No definite intraluminal filling defect to suggest choledocholithiasis however if persistent clinical concern consider correlation with ERCP. 2. Few small 4 mm pancreatic cysts. Recommend two-year follow-up contrast enhanced MR/MRCP to assess stability. 3. Dilated splenorenal collateral vessels which can be seen in the setting of portal hypertension. Dictated By: Eliana Mayorga MD Signed By: <Electronically signed by Eliana Mayorga MD in OV> 06/28/23 1705 DD/ 1625 TD/TT: Tint Layer: [facility] External Provider IMG MRI PROCEDURES Final Result documented in this encounter Visit Diagnoses Not on filedocumented in this encounter Care Teams Labor Gang Supervisor Relationship Specialty Start Date End Date Tiff Tang MD [address] [place] [address] PCP - General Family Medicine 02/24/22 documented as of this encounter
--- OUTSIDE RECORDS SUMMARY | 2025-06-12 11:40 | XMS_ITS | Encounter Summary ---
Author Organization [employer] Address [address] [facility] [address] [place] [address] Care Team Providers Care Mechanical Facilities Technician Name Role Phone Tiff Tang MD Primary Care Provide r Reason for Visit * Reason Comments Med Refill Encounter Details Date Type Department Care Team ([facility] st Contact Info) Description 06/11/2025 Refill [facility] [address] [place] [address] Tiff Tang MD [address] [place] [address] Social History Tobacco Use Types Packs/Day Years [...] Access Q2 Not on file 05/16/2025 Comments Unknown Sex and Gender Information Value [...] Description 07/16/2025 10:15 AM EST Office Visit [facility] MEDICINE [address] [place] [address] Tiff Tang MD [address] [place] [address] 08/21/2025 1:00 PM EST Office Visit [facility] OPTOMETRY [address] [place] [address] Tarka, Jenny, OD [address] [place] [address] documented as of this encounter Visit Diagnoses Not on filedocumented in this encounter Additional Health Concerns Assessment Noted Time PHQ-9 Depression Total Score: 7 05/16/20 25 10:21 AM EDT documented as of this encounter Care Teams Mechanical Facilities Technician Relationship Specialty Start Date End Date Tiff Tang MD [address] [place] [address] PCP - General Family Medicine 02/24/22 documented as of this encounter
--- OUTSIDE RECORDS SUMMARY | 2025-06-12 11:41 | XMS_ITS | Encounter Summary ---
Author Organization [employer] Address [address] [place] [address] 7t [place] [address] Care Team Providers Care Trial Judge Name Role Phone Tiff Tang MD Primary Care Provide r Encounter Details Date Type Department Care Team (Late st Contact Info) Description 09/08/2022 Abstract [facility] ADULT DENTAL [address] [place] [address] Chelsi Silver DDS [address] [place] [address] Social History Tobacco Use Types Packs/Day Years Used Date Smoking Tobacco: Never Smokeless Tobacco: Never Comments Unknown Sex and Gender Information Value [...] suspected to have Coronavirus/COVID-19? No / Unsure 09/07/2022 1:18 PM EST documented as of this encounter Plan of Treatment Upcoming Encounters Date Type Department Care Team (Late st Contact Info) Description 07/16/2025 10:15 AM EST Office Visit [facility] MEDICINE [address] [place] [address] Tiff Tang MD [address] [place] [address] 08/21/2025 1:00 PM EST Office Visit [facility] OPTOMETRY [address] [place] [address] Jenny Andrade, OD [address] [place] [address] documented as of this encounter Visit Diagnoses Not on filedocumented in this encounter Care Teams Trial Judge Relationship Specialty Start Date End Date Tiff Tang MD [address] [place] [phone] PCP - General Family Medicine 02/24/22 documented as of this encounter
--- OUTSIDE RECORDS SUMMARY | 2025-06-12 11:41 | XMS_ITS | Encounter Summary ---
Author Organization [employer] Address [address] [place] [address] [address] [place] [address] Care Team Providers Care Chief Environmental Commitment Officer Name Role Phone Tiff Tang MD Primary Care Provide r Reason for Visit * Reason Onset Date Comments Med Refill Durable Medical Equipment 02/15/2023 Encounter Details Date Type Department Care Team (Late st Contact Info) Description 02/15/2023 Refill [facility] [address] [place] [address] Tiff Tang MD [address] [place] [address] Moderate persistent asthma without complication Social History Tobacco Use Types Packs/Day Years Used Date Smoking Tobacco: Never Passive Smoke Exposure: Never Smokeless Tobacco: Never Alcohol Use Standard Drinks/Week Comments Never 0 (1 standard drink = 0.6 oz pur e alcohol) Depression Answer Date Recorded Patient Health Questionnaire-2 Score 0 09/16/2022 Comments Unknown Sex and Gender Information Value Date Recorded Sex Assigned at Female 05/30/2022 10:14 AM EDT Legal Sex Female 10:14 AM EDT Gender Identity Female 05/30/2022 10:14 AM EDT Sexual Orientation Don't know 05/30/2022 10 :14 AM EDT documented as of this encounter Miscellaneous Notes * Telephone Encounter - Bell Hopkins - 02/21/2023 4:09 PM EDT Standard written order for LIDOCAINE signed by PCP and faxed to Mayi Zhaopin at . Confirmation received and scanned documented in this encounter Plan of Treatment Upcoming Encounters Date Type Department Care Team (Late st Contact Info) Description 07/16/2025 10:15 AM EST Office Visit [facility] [facility] [address] [place] [address] Tiff Tang MD [address] [place] [address] 08/21/2025 1:00 PM EST Office Visit [facility] OPTOMETRY [address] [place], [place] [phone] Jenny Andrade, OD [address] [place] [address] documented as of this encounter Visit Diagnoses Diagnosis Moderate persistent asthma without complication documented in this encounter Care Teams Chief Environmental Commitment Officer Relationship Specialty Start Date End Date Tiff Tang MD [address] [place] [address] [phone] PCP - General Family Medicine 02/24/22 documented as of this encounter
--- OUTSIDE RECORDS SUMMARY | 2025-06-12 11:41 | XMS_ITS | Encounter Summary ---
Author Organization [employer] Address [address] [place] [address] [address] [place] [address] Care Team Providers Care Die Cast Technician Name Role Phone Tiff Tang MD Primary Care Provide r Reason for Referral * Imaging (Routine) - Closed Specialty Diagnoses / Procedures Referred By Contisabela t Referred To Contact Diagnoses Left lower quadrant abdominal pain Procedures CT Abdomen Pelvis w/o Contrast Sai Tavarez MD [address] [place] [phone] Phone: tel: fax: [address] Phone: tel: fax: Referral ID Status Reason Start Date Expiration Date Visits Re quested Visits Authorized [id number] Closed 12/12/2022 12/12/2023 1 1 Encounter Details Date Type Department Care Team (Late st Contact Info) Description 12/12/2022 Orders Only [facility] [address] [place] [phone] Sai Tavarez MD [address] [place] [phone] Left lower quadrant abdominal pain (Primary Dx) Social History Tobacco Use Types Packs/Day Years Used Date Smoking Tobacco: Never Smokeless Tobacco: Never Alcohol Use Standard [...] Description 07/16/2025 10:15 AM EST Office Visit [facility] [address] [place] [address] Tiff Tang MD [address] [place] [address] 08/21/2025 1:00 PM EST Office Visit [facility] [address] [place] [address] Tarka, Jenny, OD [address] [place] [address] Scheduled Orders Name Type Priority Associated Diagnoses Orde r Schedule CT Abdomen Pelvis w/o Contrast Imaging Routine Left lower quadrant abdominal pain Expected: 12/12/2022, Expires: 12/13/2023 documented as of this encounter Procedures Procedure Name Priority Date/Time Associated Diagnosis Comments CT ABDOMEN PELVIS WO CONTRAST Routine 01/05/2023 10:28 AM EDT documented in this encounter Results * CT Abdomen Pelvis w/o Contrast (01/05/2023 10:28 AM EDT) Anatomical Region Laterality Modality Body, Pelvis, Abdomen Computed T omography 01/05/2023 10:2 8 AM EDT Narrative 01/11/2023 9:47 AM EDT [address] [address] [address] Scan Report Signed Patient: Ary Raman MR#: [id number] : 1945 Acct:[id number] Age/Sex: 77 / F ADM Date: 01/05/23 Loc: HO.CT Attending Dr: Sai Tavarez MD Ordering Physician: SAI TAVAREZ MD Date of Service: 01/05/23 Procedure(s): CT abdomen pelvis wo IV con Accession Number(s): [id number] cc: SAI TAVAREZ MD EXAMINATION: CT ABDOMEN AND PELVIS WITHOUT CONTRAST CLINICAL INFORMATION: Diarrhea COMPARISON: Previous CT of the abdomen and pelvis August 2022 TECHNIQUE: Multidetector volumetric imaging was performed from the superior aspect of the liver through the pubic symphysis. Sagittal and coronal reformatted images were obtained on the technologist's workstation. This CT examination was performed using dose optimization techniques as appropriate, variously including the following: *Automated exposure control *Adjustment of mA and/or kV according to patient size (this includes techniques or standardized protocols for targeted exams where dose is matched to indication/reason for exam; i.e. extremities or head) *Use of iterative reconstruction technique DLP: 283 mGy-cm FINDINGS: LUNG BASES: Calcified pulmonary nodules suggestive of calcified granulomas. LIVER, GALLBLADDER, AND BILIARY TREE: The liver is normal in size, shape, and attenuation. No focal hepatic lesion or biliary ductal dilatation is present. The gallbladder is unremarkable with no evidence of radiopaque gallstones, gallbladder wall thickening, or obvious pericholecystic inflammatory changes. PANCREAS: Unremarkable. SPLEEN: Unremarkable. ADRENAL GLANDS: Unremarkable. KIDNEYS AND URETERS: The kidneys are normal in size, shape, and attenuation. No hydronephrosis, hydroureter, or calculi seen. No perinephric stranding. BLADDER: Small amount of air in the bladder. GASTROINTESTINAL TRACT: Mild diverticulosis. Question mild wall thickening of the distal colon versus changes due to underdistention. Prominent soft tissue in the anorectal region. Correlation with physical exam recommended. The small and large bowel are otherwise unremarkable. The appendix is unremarkable. Wall thickening in the distal stomach appears improved. ABDOMINAL WALL: No significant hernia is appreciated. LYMPH NODES: Normal. VASCULAR: Large left upper quadrant varices. Atherosclerotic disease. No aneurysm. No ascites. PELVIC VISCERA: Uterus appears to have been removed. No pelvic mass. OSSEOUS STRUCTURES: Degenerative changes of the spine. Mild old lower thoracic vertebral body compression fracture. This is stable. CT/CT abdomen pelvis wo IV con IMPRESSION: Mild diverticulosis. Question mild wall thickening of the distal colon versus changes due to underdistention. Prominent soft tissue in the anorectal region. Correlation with physical exam recommended. Small amount of air in the bladder. Clinical correlation i.e. has the patient recently catheterized. Differential would include infection and fistula. Large left upper quadrant varices. No cirrhosis or ascites seen. Fleischner guidelines were followed. Dictated By: Misty Miguel MD Signed By: <Electronically signed by Misty Miguel MD in OV> 01/11/23 0944 DD/ 1028 TD/TT: Saw Sharpener: RYAN Procedure Note Donotuseinterpreter, Image - 01/11/[address] [address] [address] Scan Report Signed Patient: Ary Raman [facility]#: [id number] : 5Acct:[id number] Age/Sex: 77 / FADM Date: 01/05/23 Loc: HO.CT Attending Dr: Sai Tavarez MD Ordering Physician: SAI TAVAREZ MD Date of Service: 01/05/23 Procedure(s): CT abdomen pelvis wo IV con Accession Number(s): [id number] cc: SAI TAVAREZ MD EXAMINATION: CT ABDOMEN AND PELVIS WITHOUT CONTRAST CLINICAL INFORMATION: Diarrhea COMPARISON: Previous CT of the abdomen and pelvis August 2022 TECHNIQUE: Multidetector volumetric imaging was performed from the superior aspect of the liver through the pubic symphysis. Sagittal and coronal reformatted images were obtained on the technologist's workstation. This CT examination was performed using dose optimization techniques as appropriate, variously including the following: *Automated exposure control *Adjustment of mA and/or kV according to patient size (this includes techniques or standardized protocols for targeted exams where dose is matched to indication/reason for exam; i.e. extremities or head) *Use of iterative reconstruction technique DLP: 283 mGy-cm FINDINGS: LUNG BASES: Calcified pulmonary nodules suggestive of calcified granulomas. LIVER, GALLBLADDER, AND BILIARY TREE: The liver is normal in size, shape, and attenuation. No focal hepatic lesion or biliary ductal dilatation is present. The gallbladder is unremarkable with no evidence of radiopaque gallstones, gallbladder wall thickening, or obvious pericholecystic inflammatory changes. PANCREAS: Unremarkable. SPLEEN: Unremarkable. ADRENAL GLANDS: Unremarkable. KIDNEYS AND URETERS: The kidneys are normal in size, shape, and attenuation. No hydronephrosis, hydroureter, or calculi seen. No perinephric stranding. BLADDER: Small amount of air in the bladder. GASTROINTESTINAL TRACT: Mild diverticulosis. Question mild wall thickening of the distal colon versus changes due to underdistention. Prominent soft tissue in the anorectal region. Correlation with physical exam recommended. The small and large bowel are otherwise unremarkable. The appendix is unremarkable. Wall thickening in the distal stomach appears improved. ABDOMINAL WALL: No significant hernia is appreciated. LYMPH NODES: Normal. VASCULAR: Large left upper quadrant varices. Atherosclerotic disease. No aneurysm. No ascites. PELVIC VISCERA: Uterus appears to have been removed. No pelvic mass. OSSEOUS STRUCTURES: Degenerative changes of the spine. Mild old lower thoracic vertebral body compression fracture. This is stable. CT/CT abdomen pelvis wo IV con IMPRESSION: Mild diverticulosis. Question mild wall thickening of the distal colon versus changes due to underdistention. Prominent soft tissue in the anorectal region. Correlation with physical exam recommended. Small amount of air in the bladder. Clinical correlation i.e. has the patient recently catheterized. Differential would include infection and fistula. Large left upper quadrant varices. No cirrhosis or ascites seen. Fleischner guidelines were followed. Dictated By: Misty Miguel MD Signed By: <Electronically signed by Misty Miguel MD in OV> 01/11/23 0944 DD/ 1028 TD/TT: Saw Sharpener: RYAN [facility] External Provider IMG CT PROCEDURES Final Result documented in this encounter Visit Diagnoses Diagnosis Left lower quadrant abdominal pain- Primary documented in this encounter Care Teams Die Cast Technician Relationship Specialty Start Date End Date Tiff Tang MD [address] [place] [phone] PCP - General Family Medicine 02/24/22 documented as of this encounter
--- OUTSIDE RECORDS SUMMARY | 2025-06-12 11:41 | XMS_ITS | Encounter Summary ---
Author Organization [employer] Address [address] [place] [address] Care Team Providers Care Blogs Manager Name Role Phone Tiff Tang MD Primary Care Provide r Encounter Details Date Type Department Care Team (Late Contact Info) Description 01/11/2023 Orders Only [facility] [address] [place] [phone] Sai Tavarez MD [address] [place] [phone] Generalized abdominal pain (Primary Dx); Pneumaturia Social History Tobacco Use Types Packs/Day Years [...] suspected to have Coronavirus/COVID-19? No / Unsure 12/27/2022 9:27 AM EDT documented as of this encounter Plan of Treatment Upcoming Encounters Date Type Department Care Team (Late st Contact Info) Description 07/16/2025 10:15 AM EST Office Visit [facility] [address] [place] [address] Tiff Tang MD [address] [place], [place] 08/21/2025 1:00 PM EST Office Visit [facility] [address] [place] [address] Jenny Andrade, OD [address] [place] [address] documented as of this encounter Procedures Procedure Name Priority Date/Time Associated Diagnosis Comments CULTURE, URINE, ROUTINE Routine 01/13/2023 10:09 AM EDT Generalized abdominal pain documented in this encounter Results * (ABNORMAL) Culture, Urine, Routine (01/13/2023 10:09 AM EDT) Culture, Urine, Routine SEE NOTE(A) [employer] [place] [employer] Comment: CULTURE, URINE, ROUTINE Micro Number: [id number] Test Status: Final Specimen Source: Urine Specimen Quality: Adequate Result: 10,000-49,000 CFU/mL of Coagulase negative staphylococcus, not S. saprophyticus Please call the laboratory within three (3) days if further identification or susceptibilities are required. Urine Urine specimen obtained by clean catch procedure / Unknown 01/13/2023 10:09 AM EDT 01/13/2023 10:10 AM EDT Sai Tavarez MD LAB MICROBIOLOGY - GENERAL ORDER ALLY Final Result [facility] [address], [place] [address] [employer] [place] [email or web address] [address] [place] [address] documented in this encounter Visit Diagnoses Diagnosis Generalized abdominal pain- Primary Abdominal pain, generalized Pneumaturia Other specified disorders of urinary tract documented in this encounter Care Teams Blogs Manager Relationship Specialty Start Date End Date Tiff Tang MD [address] [place], [place] PCP - General Family Medicine 02/24/22 documented as of this encounter
== END 2025-06-12 09:54 | disposition home or self-care (01) ==
LOC: HO.HHCX 09:53
PROVIDERS: Visit Provider Family Medicine
DX: J45.41 Moderate persistent asthma with (acute) exacerbation (principal)
CPT/HCPCS: 71046

== ENCOUNTER → 2025-06-12 09:53 | Outpatient (BNV) | payer OTHER, SELFPAY | PROVIDERS: Visit Provider Radiology Diagnostic Ultrasound | DX: R06.02 Shortness of breath (principal); R05.9 Cough, unspecified | CPT/HCPCS: 71046 ==